=== PATIENT | male | born 1930 | race Caucasian/White ===

== ENCOUNTER 2017-09-15 03:57 | Emergency (ER) | payer MEDICARE, OTHER ==
[~2017-09-15] VITALS: Ht 177.8 cm; Wt 84.5 kg
[~2017-09-15 03:57] MED LIST: ALPR0.25 PO; AMLO5 PO; ASPI325T PO; ATOR40TA49 PO; CARB25TA PO; ENOX30P SQ; FISH1000 PO; LEVO0.5S15 EACH EYE; MIRA33502 PO; OCUVTAB4 PO; OXYC1SOL5 PO; PACE200T4 PO; POTA-243 PO; TEMA15CA PO; VITA500S3 PO; Z.0.COMMODE-3:1; Z.0.WALKERFRONT
[2017-09-15 03:59] VITALS: BP 211/102; PULSE 71; RESP 16; TEMP 98; O2SAT 97
[2017-09-15 04:11] VITALS: RESP 15; O2SAT 94
[2017-09-15] MEDS ORDERED: SODIUM CHLORIDE 0.9% FLUSH 10 ML FLUSH IV FLUSH PRN (04:15)
[2017-09-15] MEDS ORDERED: DIATRIZOATE MEGLUM/DIATRIZOATE SOD 9 ML CUP ONE (04:24)
--- NOTE | 2017-09-15 04:25 | PD ---
HPI Chief Complaint: Abdominal Pain Time Seen by Provider: 04:04 Travel History International Travel<30 days: No Contact w/Intl Traveler<30days: No Traveled to known affect area: No History of Present Illness HPI This is a 87-year-old male with history of Parkinson's disease, hypertension, presents here today with complaints of left lower abdominal pain. Patient reports started earlier today. He reports it initially went away however it is come back. He denies any fevers, chills. He reports mild nausea but no vomiting. There is no reported diarrhea or constipation. There is no reported urinary symptoms. PFSH Past Medical History Autoimmune Disease: No Cardiac Catheterization: Yes Cardiovascular Problems: Yes (PACEMAKER) High Cholesterol: Yes Chemotherapy: No Chest Pain: Yes Congestive Heart Failure: Yes Coronary Artery Disease: Yes Diminished Hearing: No Genitourinary: No Hypertension: Yes Immune Disorder: No Implanted Vascular Access Dvce: Yes Musculoskeletal: Yes Neurologic: No Psychiatric: No Reproductive: No Respiratory: No Immunizations Current: Yes Radiation Therapy: Yes Past Surgical History Abdominal Surgery: No AICD: Yes (pacemaker/defib) Cardiac Surgery: Yes (BYPASS X4 IN 1993, VALVE REPLACEMENT , STENTS X6) Cholecystectomy: Yes (ON ZOCOR) Coronary Artery Bypass Graft: Yes (CABG X4 IN 1993- DECEMBER) Coronary Stent: Yes (X 4) Pacemaker: Yes (JUL 08 2006) Valve Replacement: Yes (AVR IN JUL 01 2006) Other Surgery: Yes Social History Alcohol Use: Yes (2 GLASSES A WEEK) Tobacco Use: No Substance Use: No Allergies-Medications (Allergen,Severity, Reaction): Coded Allergies: naproxen (Unverified Allergy, Severe, "face,lips and hands swell", 01/08/17 ) MRI PRECAUTION (Verified Adverse Reaction, Unknown, PACEMAKER, 10/29/15) PACEMAKER PRESENT 10/29/15 JLA Reported Meds & Prescriptions Reported Meds & Active Scripts Active Reported Potassium Chloride ER (Potassium Chloride) 10 Meq Tab 30 Meq PO DAILY Potassium Chloride ER (Potassium Chloride) 10 Meq Tab 40 Meq PO HS Erythromycin Opth Oint 5 Mg/Gm Oint 1 Applic EACH EYE HS Doxycycline 40 Mg Cap 40 Mg PO DAILY Amlodipine (Amlodipine Besylate) 2.5 Mg Tab 2.5 Mg PO DAILY Prednisone 20 Mg Tab 20 Mg PO DIRECTED Take 60 MG daily x 4 days, then 40 MG x 4 days, then 20 MG daily x 4 days. Alprazolam 0.25 Mg Tab 0.25 Mg PO BID PRN Furosemide 40 Mg Tab 40 Mg PO DAILY Review of Systems Except as stated in HPI: all other systems reviewed are Neg General / Constitutional: No: Fever, Chills HENT: No: Headaches, Lightheadedness Cardiovascular: No: Chest Pain or Discomfort, Palpitations Respiratory: No: Cough, Shortness of Breath Gastrointestinal: Positive: Nausea, Abdominal Pain (Left lower and infraumbilical), No: Vomiting, Diarrhea, Constipation Genitourinary: No: Frequency, Dysuria Musculoskeletal: No: Weakness, Pain Neurologic: No: Weakness, Dizziness, Headache Physical Exam Narrative GENERAL: Well-nourished, well-developed patient, in no acute respiratory distress. SKIN: Focused skin assessment warm/dry. HEAD: Normocephalic/atraumatic. EYES: No scleral icterus. No injection or drainage. NECK: Supple, trachea midline. No JVD or lymphadenopathy. CARDIOVASCULAR: Regular rate and rhythm without murmurs, gallops, or rubs. RESPIRATORY: Breath sounds equal bilaterally. No accessory muscle use. GASTROINTESTINAL: Abdomen soft, nondistended. Patient had tenderness to palpation in his left lower abdominal area. No rebound or guarding. MUSCULOSKELETAL: No cyanosis, or edema. NEUROLOGICAL: Awake and alert. Cranial nerves II through XII intact. Motor grossly within normal limits. Five out of 5 muscle strength in all muscle groups. Normal speech. Data Data Last Documented VS Vital Signs Date Time Temp Pulse Resp B/P (MAP) Pulse Ox O2 Delivery O2 Flow Rate FiO2 09/15/17 06:43 73 20 187/92 (123) 93 Room Air 09/15/17 03:59 98.0 Orders Orders Complete Blood Count With Diff (09/15/17 04:04) Lipase (09/15/17 04:04) Urinalysis - C+S If Indicated (09/15/17 04:04) Ct Abd/Pel W Iv Contrast(Rout) (09/15/17 04:04) Iv Access Insert/Monitor (09/15/17 04:04) Ecg Monitoring (09/15/17 04:04) Oximetry (09/15/17 04:04) Sodium Chloride 0.9% Flush (Ns Flush) (09/15/17 04:15) Oral Contrast - Adult (09/15/17 04:07) Diatrizoate Liq ([place] Liq) (09/15/17 04:24) Comprehensive Metabolic Panel (09/15/17 04:57) Lorazepam Inj (Ativan Inj) (09/15/17 05:45) Iohexol 350 Inj (Omnipaque 350 Inj) (09/15/17 06:21) Labs Laboratory Tests Test 09/15/17 04:30 White Blood Count 12.7 TH/MM3 Red Blood Count 4.16 MIL/MM3 Hemoglobin 12.8 GM/DL Hematocrit 38.3 % Mean Corpuscular Volume 92.2 FL Mean Corpuscular Hemoglobin 30.9 PG Mean Corpuscular Hemoglobin Concent 33.5 % Red Cell Distribution Width 14.9 % Platelet Count 189 TH/MM3 Mean Platelet Volume 8.9 FL Neutrophils (%) (Auto) 70.1 % Lymphocytes (%) (Auto) 19.0 % Monocytes (%) (Auto) 8.9 % Eosinophils (%) (Auto) 1.3 % Basophils (%) (Auto) 0.7 % Neutrophils # (Auto) 8.9 TH/MM3 Lymphocytes # (Auto) 2.4 TH/MM3 Monocytes # (Auto) 1.1 TH/MM3 Eosinophils # (Auto) 0.2 TH/MM3 Basophils # (Auto) 0.1 TH/MM3 CBC Comment AUTO DIFF Differential Total Cells Counted 100 Neutrophils % (Manual) 70 % Lymphocytes % 17 % Monocytes % 8 % Eosinophils % 3 % Basophils % 2 % Neutrophils # (Manual) 8.9 TH/MM3 Differential Comment FINAL DIFF MANUAL Platelet Estimate NORMAL Platelet Morphology Comment NORMAL Red Cell Morphology Comment NORMAL Urine Color LIGHT-YELLOW Urine Turbidity CLEAR Urine pH 6.5 Urine Specific [place] 1.011 Urine Protein 30 mg/dL Urine Glucose (UA) NEG mg/dL Urine Ketones NEG mg/dL Urine Occult Blood NEG Urine Nitrite NEG Urine Bilirubin NEG Urine Urobilinogen LESS THAN 2.0 MG/DL Urine Leukocyte Esterase NEG Urine RBC 2 /hpf Urine WBC LESS THAN 1 /hpf Urine Hyaline Casts 2 /lpf Microscopic Urinalysis Comment CULT NOT INDICATED Blood Urea Nitrogen 26 MG/DL Creatinine 1.38 MG/DL Random Glucose 98 MG/DL Total Protein 7.6 GM/DL Albumin 3.6 GM/DL Calcium Level 8.9 MG/DL Alkaline Phosphatase 83 U/L Aspartate Amino Transf (AST/SGOT) 41 U/L Alanine Aminotransferase (ALT/SGPT) 15 U/L Total Bilirubin 0.7 MG/DL Sodium Level 142 MEQ/L Potassium Level 5.1 MEQ/L Chloride Level 106 MEQ/L Carbon Dioxide Level 27.8 MEQ/L Anion Gap 8 MEQ/L Estimat Glomerular Filtration Rate 49 ML/MIN Lipase 49 U/L MDM Medical Decision Making Medical Screen Exam Complete: Yes Emergency Medical Condition: Yes Differential Diagnosis Diverticulitis versus appendicitis versus gastroenteritis versus cystitis Narrative Course 87-year-old presents today with complaints of abdominal discomfort. The patient has a soft non-surgical abdomen on exam. There is no reported fevers, chills. White blood cell count was slightly elevated at 12. CT scan shows a large left inguinal hernia. On examination. This hernia is reducible. He will be instructed to purchase a truss and wear for comfort. He is instructed to return if he develops any worsening or increased pain, fevers chills, nausea vomiting, inability to have bowel movement. He will follow-up with his primary care doctor and told to call on Saturday. Diagnosis Primary Impression: Abdominal pain Additional Impressions: Reducible left inguinal hernia Renal insufficiency History of Parkinson's disease Additional Instructions: Purchase a truss for comfort. Return if increased pain, fevers chills, nausea vomiting, inability to have bowel movement, or any other reason that concerns you. Follow-up with primary care physician. Disposition: 01 DISCHARGE HOME Condition: Stable Oseas Brady MD Sep 15, 2017 04:24
[2017-09-15 04:40] LABS: AUTOMATED NEUTROPHIL # 8.9 TH/MM3 (1.8-7.7); BASOPHIL # 0.1 TH/MM3 (0-0.2); BASOPHIL % 0.7 % (0.0-2.0); BILIRUBIN, URINE NEG (NEG); BLOOD, URINE NEG (NEG); EOSINOPHIL # 0.2 TH/MM3 (0-0.4); EOSINOPHIL % 1.3 % (0.0-4.0); GLUCOSE,URINE NEG (NEG); HEMATOCRIT 38.3 % (39.0-51.0); HEMOGLOBIN 12.8 GM/DL (13.0-17.0); HYALINE CAST, URINE 2 /lpf (RARE); KETONE, URINE NEG (NEG); LYMPHOCYTE # 2.4 TH/MM3 (1.0-4.8); MEAN CELL VOLUME 92.2 FL (80.0-100.0); MEAN CORPUSCULAR HEMOGLOBIN 30.9 PG (27.0-34.0); MEAN CORPUSCULAR HGB CONC 33.5 % (32.0-36.0); MEAN PLATELET VOLUME 8.9 FL (7.0-11.0); MONO % 8.9 % (0.0-8.0); MONOCYTE # 1.1 TH/MM3 (0-0.9); NEUT % 70.1 % (16.0-70.0); NITRITE,URINE NEG (NEG); PH, URINE 6.5 (5.0-8.5); PLATELET COUNT 189 TH/MM3 (150-450); RED BLOOD COUNT 4.16 MIL/MM3 (4.50-5.90); RED CELL DISTRIBUTION WIDTH 14.9 % (11.6-17.2); URINE COLOR LIGHT-YELLOW (YELLW/STRAW); URINE LEUKOCYTE ESTERASE NEG (NEG); WHITE BLOOD COUNT 12.7 TH/MM3 (4.0-11.0)
[2017-09-15 05:36] LABS: BASOPHILS 2 % (0-2); LYMPHOCYTES 17 % (9-44); MONOCYTES 8 % (0-8); NEUTROPHIL # MANUAL DIFF 8.9 TH/MM3 (1.8-7.7); POLYS (SEG NEUTROPHILS) 70 % (16-70)
[2017-09-15 05:42] LABS: ALT (GPT) 15 U/L (12-78)
[2017-09-15 05:44] LABS: ALKALINE PHOSPHATASE 83 U/L (45-117); TOTAL BILIRUBIN ADULT 0.7 MG/DL (0.2-1.0); TOTAL PROTEIN 7.6 GM/DL (6.4-8.2)
[2017-09-15] MEDS ORDERED: LORazepam 2 MG/ML VIAL IV PUSH ONE (05:45)
[2017-09-15 05:56] LABS: ALBUMIN 3.6 GM/DL (3.4-5.0); AST (GOT) 41 U/L (15-37); BICARBONATE 27.8 MEQ/L (21.0-32.0); BLOOD UREA NITROGEN 26 MG/DL (7-18); CALCIUM 8.9 MG/DL (8.5-10.1); CHLORIDE 106 MEQ/L (98-107); CREATININE 1.38 MG/DL (0.60-1.30); GLOMERULAR FILTRATION RATE 49 ML/MIN (>89); GLUCOSE,RANDOM 98 MG/DL (74-106); SODIUM (NA) 142 MEQ/L (136-145)
[2017-09-15 06:14] VITALS: BP 193/97; PULSE 70; RESP 17; O2SAT 93
[2017-09-15] MEDS ORDERED: IOHEXOL 350 MG/ML 10 ML VIAL (for RAD DIAG) IVCONTRAST ONE (06:21)
--- NOTE | 2017-09-15 06:38 | RADRPT ---
EXAM DATE/TIME: 09/15/2017 06:21 [facility] COMPARISON: No previous studies available for comparison. INDICATIONS : Abdomen pain. IV CONTRAST: 95 cc Omnipaque 350 (iohexol) IV ORAL CONTRAST: Prescribed oral contrast ingested. RADIATION DOSE: 20.00 CTDIvol (mGy) MEDICAL HISTORY : Cardiovascular disease. Hypertension. SURGICAL HISTORY : CABG Coronary artery stent.Pacemaker.GB ENCOUNTER: Initial ACUITY: 1 day PAIN SCALE: 5/10 LOCATION: Bilateral abdomen TECHNIQUE: Volumetric scanning of the abdomen and pelvis was performed. Using automated exposure control and ad justment of the mA and/or kV according to patient size, radiation dose was kept as low as reasonably achievable to obtain optimal diagnostic quality images. DICOM format image data is available electro nically for review and comparison. FINDINGS: LOWER LUNGS: Significant cardiomegaly without pericardial effusion. Calcified granuloma within the right base. LIVER: 2 tiny hepatic cysts. No solid lesion. Portal vein is patent. Small calcified gallstones layering wit hin an otherwise normal-appearing gallbladder. SPLEEN: Normal size without lesion. PANCREAS: Within normal limits. KIDNEYS: Normal in size and shape. There is no mass, stone or hydronephrosis. ADRENAL GLANDS: Within normal limits. VASCULAR: Diffuse calcified plaque throughout the abdominal aorta and inflow vessels. No aneurysmal change. BOWEL/MESENTERY: The stomach, small bowel, and colon demonstrate no acute abnormality. There is no free intraperitone al air or fluid. ABDOMINAL WALL: Within normal limits. RETROPERITONEUM: There is no lymphadenopathy. BLADDER: No wall thickening or mass. REPRODUCTIVE: Within normal limits. INGUINAL: There is a large right inguinal hernia. This contains fat and several loops of small bowel. No CT jackie dence to suggest incarceration or obstruction. MUSCULOSKELETAL: A left hip prosthesis. A degenerative spine. CONCLUSION: 1. Large right inguinal hernia containing small bowel and fat. No CT evidence to suggest obstruction or incarceration. 2. Cholelithiasis without CT evidence to suggest acute cholecystitis. 3. Significant cardiomegaly. Mansoor Almonte Jr., MD on September 15, 2017 at 6:33 Board Certified Radiologist. This report was verified electronically.
[2017-09-15 06:43] VITALS: BP 187/92; PULSE 73; RESP 20; O2SAT 93
[2017-09-15] MEDS ORDERED: ERYTOIN10 EACH EYE (06:49)
[2017-09-15] MEDS ORDERED: FURO40TA PO (06:49)
[2017-09-15] MEDS ORDERED: PRED20 PO (06:49)
[2017-09-15] MEDS ORDERED: POTA-163 PO (06:49)
[2017-09-15] MEDS ORDERED: ALPR0.25 PO (06:49)
[2017-09-15] MEDS ORDERED: DOXY1CAP74 PO (06:49)
[2017-09-15] MEDS ORDERED: AMLO2.5T PO (06:49)
[2017-09-15] MEDS ORDERED: POTA10TA2 PO ×2 (06:49→06:50)
== END 2017-09-15 07:07 | disposition home or self-care (01) ==
LOC: NEPE 03:57
DX: R10.32 Left lower quadrant pain (principal); K40.90 Unilateral inguinal hernia, without obstruction or gangrene, not specified as recurrent; N28.9 Disorder of kidney and ureter, unspecified; G20 Parkinson's disease; I11.0 Hypertensive heart disease with heart failure
CPT/HCPCS: 74177; 80053; 81001; 83690; 85007; 85027; 96374; 99285; J2060; Q9963; Q9967

== ENCOUNTER 2017-09-30 13:57 | Inpatient (IN) | payer OTHER, MEDICARE ==
[~2017-09-30] VITALS: Ht 177.8 cm; Wt 89.5 kg
[~2017-09-30 13:57] MED LIST changes: +AMLO2.5T PO; -AMLO5 PO; -ASPI325T PO; -ATOR40TA49 PO; -CARB25TA PO; +DOXY1CAP74 PO; -ENOX30P SQ; +ERYTOIN10 EACH EYE; -FISH1000 PO; +FURO40TA PO; -LEVO0.5S15 EACH EYE; -MIRA33502 PO; -OCUVTAB4 PO; -OXYC1SOL5 PO; -PACE200T4 PO; -POTA-243 PO; +POTA10TA2 PO; +PRED20 PO; -TEMA15CA PO; -VITA500S3 PO; -Z.0.COMMODE-3:1; -Z.0.WALKERFRONT
[2017-09-30 14:30] VITALS: BP 167/82; PULSE 70; RESP 18; TEMP 98.1; O2SAT 97
[2017-09-30] MEDS ORDERED: ACETAMINOPHEN/HYDROcodone 325 MG/5 MG TAB PO ONE (16:00)
[2017-09-30] MEDS ORDERED: LORazepam 2 MG TAB PO ONE (16:00)
--- NOTE | 2017-09-30 16:22 | PD ---
HPI . Back pain Chief Complaint: Back/ Neck Pain or Injury Time Seen by Provider: 15:43 Travel History International Travel<30 days: No Contact w/Intl Traveler<30days: No Traveled to known affect area: No History of Present Illness HPI Patient presents along with several family members with the chief complaint of low back pain. Onset was 2 weeks ago. He states that he was at a restaurant and turn to speak with someone and inadvertently struck his left lower rib cage on a counter. This caused a "almost fall to the ground." Since then, he has had low back pain. He has been seen by his primary care provider for the back pain has been referred to orthopedics. He cannot get in to see an orthopedist for another week or 2. His pain is not controlled by Tylenol and Advil at home. He subsequently presents to us for further evaluation and treatment. Pain is rated 10/10 and is exacerbated by movement. PFSH Past Medical History Autoimmune Disease: No Cardiac Catheterization: Yes Cardiovascular Problems: Yes (PACEMAKER) High Cholesterol: Yes Chemotherapy: No Chest Pain: Yes Congestive Heart Failure: Yes Coronary Artery Disease: Yes Diminished Hearing: No Genitourinary: No Hypertension: Yes Immune Disorder: No Implanted Vascular Access Dvce: No Musculoskeletal: Yes Neurologic: No Psychiatric: No Reproductive: No Respiratory: No Immunizations Current: Yes Radiation Therapy: Yes Influenza Vaccination: Yes Past Surgical History Abdominal Surgery: No AICD: Yes (pacemaker/defib) Cardiac Surgery: Yes (BYPASS X4 IN 1993, VALVE REPLACEMENT , STENTS X6) Cholecystectomy: Yes (ON ZOCOR) Coronary Artery Bypass Graft: Yes (CABG X4 IN 1993- DECEMBER) Coronary Stent: Yes (X 4) Pacemaker: Yes (JUL 08 2006) Valve Replacement: Yes (AVR IN JUL 01 2006) Other Surgery: Yes Social History Alcohol Use: Yes (rarely) Tobacco Use: No Substance Use: No Allergies-Medications (Allergen,Severity, Reaction): Coded Allergies: naproxen (Unverified Allergy, Severe, "face,lips and hands swell", 09/30/17) MRI PRECAUTION (Verified Adverse Reaction, Unknown, PACEMAKER, 09/30/17) PACEMAKER PRESENT 10/29/15 JLA Reported Meds & Prescriptions Reported Meds & Active Scripts Active Reported Potassium Chloride ER (Potassium Chloride) 10 Meq Tab 30 Meq PO DAILY Potassium Chloride ER (Potassium Chloride) 10 Meq Tab 40 Meq PO HS Erythromycin Opth Oint 5 Mg/Gm Oint 1 Applic EACH EYE HS Doxycycline 40 Mg Cap 40 Mg PO DAILY Amlodipine (Amlodipine Besylate) 2.5 Mg Tab 2.5 Mg PO DAILY Prednisone 20 Mg Tab 20 Mg PO DIRECTED Take 60 MG daily x 4 days, then 40 MG x 4 days, then 20 MG daily x 4 days. Alprazolam 0.25 Mg Tab 0.25 Mg PO BID PRN Furosemide 40 Mg Tab 40 Mg PO DAILY Review of Systems Except as stated in HPI: all other systems reviewed are Neg Psychiatric: Positive: Anxiety Physical Exam Narrative GENERAL: Awake and alert and in no acute distress. SKIN: Warm and dry. His skin is very thin. It does look intact from what I can see. HEAD: Normocephalic/atraumatic. EYES: Pupils are equal. Extraocular movements are intact. NECK: Normal range of motion. CARDIOVASCULAR: Regular rate and rhythm. RESPIRATORY: Nonlabored respirations. MUSCULOSKELETAL: Tenderness to palpation in the mid lumbar spine and over the left posterior sacroiliac crest. NEUROLOGICAL: Nonfocal. PSYCHIATRIC: Appropriate mood and affect. Data Data Last Documented VS Vital Signs Date Time Temp Pulse Resp B/P (MAP) Pulse Ox O2 Delivery O2 Flow Rate FiO2 09/30/17 14:30 98.1 70 18 167/82 (110) [address] Lumb Spine W/O Contrast (09/30/17 15:52) Acetamin-Hydrocod 325-5 Mg ([place] 5-325 (09/30/17 16:00) Lorazepam (Ativan) (09/30/17 16:00) Complete Blood Count With Diff (09/30/17 18:10) Basic Metabolic Panel (Bmp) (09/30/17 18:10) Prothrombin Time / Inr (Pt) (09/30/17 18:10) Act Partial Throm Time (Ptt) (09/30/17 18:10) Type And Screen (09/30/17 18:10) Precautions (09/30/17 18:10) Activity Bed Rest (09/30/17 18:10) Consult Neurosurgery (09/30/17 ) Morphine Inj (Morphine Inj) (09/30/17 18:15) MDM Medical Decision Making Medical Screen Exam Complete: Yes Emergency Medical Condition: Yes Differential Diagnosis Differential diagnosis includes but is not limited to muscular low back pain, DDD, spinal stenosis, epidural abscess, sciatica, kidney infection or stone. Narrative Course This patient presents complaining with low back pain which has been bothering him for 2 weeks since he nearly fell. He has seen his primary care doctor who referred him to orthopedics. He has not been able to get into see an orthopedic surgeon. His pain is not controlled at home with Tylenol and ibuprofen. I have ordered a CT of his lumbar spine. He will be given a [place] and and Ativan here. Care was turned over to Dr Kaufman at [address] Diagnosis Primary Impression: Back pain Qualified Codes: M54.5 - Low back pain Condition: Stable Malaika Faulkner MD September 30, 2017 16:22
--- NOTE | 2017-09-30 17:41 | RADRPT ---
EXAM DATE/TIME: 09/30/2017 16:34 [facility] COMPARISON: No previous studies available for comparison. INDICATIONS : Low back pain. RADIATION DOSE: 43.84 CTDIvol (mGy) MEDICAL HISTORY : Cardiovascular disease. SURGICAL HISTORY : Pacemaker. Defibrillator. ENCOUNTER: Initial ACUITY: 1 week PAIN SCALE: 10/10 LOCATION: lumbar TECHNIQUE: Volumetric scanning of the lumbar spine was performed. Multiplanar reconstructions in the sagittal, coronal and oblique axial planes were performed. Using automated exposure control and adjustment of the mA and/or kV according to patient size, radiation dose was kept as low as reasonably achievable t o obtain optimal diagnostic quality images. DICOM format image data is available electronically for review and comparison. FINDINGS: VERTEBRAE: There is acute appearing fracture at the L2 vertebral body. There is a horizontal fracture involving the superior aspect of the L2 vertebral body. This involves the anterior and posterior aspect of the vertebral body. There is minimal retropulsion of the posterior superior aspect of the L1 vertebral carola dy straightening the anterior thecal sac margin without significant stenosis. The fracture extends th rough the superior endplate. The pedicles and posterior elements are intact. No other fracture is see n. There is hypertrophic change at the interspinous regions at the L2-L5 levels. ALIGNMENT: No evidence of subluxation. Arterial calcifications are seen. T12-L1: The thecal sac has a normal diameter. No evidence of disc bulge or protrusion. The neural foramina are patent bilaterally. L1-L2: Again noted is the fracturing of the superior aspect of the L2 vertebral body would be minimal retrop ulsion. There is straightening the anterior margin of the thecal sac without significant stenosis. N o evidence of disc bulge or protrusion. The neural foramina are patent bilaterally. L2-L3: The thecal sac has a normal diameter. There is minimal diffuse disc bulge. Significant stenosis is n ot seen. The neural foramina are patent bilaterally. L3-L4: There is mild diffuse disc bulge. There is moderate facet and ligamentum flavum hypertrophy resulting in severe stenosis. The neural foramina are patent bilaterally. L4-L5: There is mild diffuse disc bulge. There is severe facet and ligamentum flavum hypertrophy resulting i n moderate stenosis. The facet hypertrophy is worse on the right. There is narrowing of the right grant ral foramina. The left neural foramina is patent. L5-S1: The disc demonstrates decreased height. There is calcification seen throughout the disc. There appear s be minimal central disc protrusion without significant stenosis. There is mild facet hypertrophy. T he neural foramina are patent bilaterally. CONCLUSION: 1. Acute fracture in the superior aspect of the L2 vertebral body involving the entire superior aspec t of the L2 vertebral body with slight retropulsion of the posterior superior aspect of the L2 verteb ral body causing minimal impress on the thecal sac. 2. Degenerative change as described above. There is severe stenosis at the L4-L5 level and moderate s tenosis at the L3-L4 level. Toribio Callaway MD on September 30, 2017 at 17:26 Board Certified Radiologist. This report was verified electronically.
--- NOTE | 2017-09-30 17:50 | PD ---
Physical Exam Narrative Received sign out from previous team to follow up CT lumbar spine. 87yo M with PMH of CAD, HTN with lower back pain for 2 weeks. He apparently twisted his body when his foot was stuck and he fell. Pt went to PMD and was found to have left rib fracture but they did not evaluate his back. Pt has been walking with increasing lower back pain and has been falling more as well. CT LS showed acute fracture in superior aspect of the L2 vertebral body involving the entire superior aspect of the L2 vertebral body with slight retropulsion of the posterior superior aspect of the L2 vertebral body causing minimal impress on the thecal sac. Pt given ativan 2mg PO and hydrocodone by previous team and is still in a lot of pain. Pt has normal sensation and muscle strength in bilateral lower extremities. Discussed with Dr. Shafer who recommends bedrest with spine precaution and consult to neurosurgery since he will need surgery. Labs ordered and pt to be admitted to medicine. Will give morphine for pain. Labs reviewed, no leukocytosis. H/H 12.8/38.2. BUN mildly elevated at 25. Creatinine normal. Discussed with Dr. Castillo and accepted to his service. Data Data Last Documented VS Vital Signs Date Time Temp Pulse Resp B/P (MAP) Pulse Ox O2 Delivery O2 Flow Rate FiO2 09/30/17 19:15 70 16 161/88 (112) 95 Room Air 09/30/17 14:[address] Lumb Spine W/O Contrast (09/30/17 15:52) Acetamin-Hydrocod 325-5 Mg ([place] 5-325 (09/30/17 16:00) Lorazepam (Ativan) (09/30/17 16:00) Complete Blood Count With Diff (09/30/17 18:10) Basic Metabolic Panel (Bmp) (09/30/17 18:10) Prothrombin Time / Inr (Pt) (09/30/17 18:10) Act Partial Throm Time (Ptt) (09/30/17 18:10) Type And Screen (09/30/17 18:10) Precautions (09/30/17 18:10) Activity Bed Rest (09/30/17 18:10) Consult Neurosurgery (09/30/17 ) Morphine Inj (Morphine Inj) (09/30/17 18:15) (Hub Use Only)Inp Phy Cons/Ref (09/30/17 ) ^ Other Nursing Orders (09/30/17 19:58) Admit Order (Ed Use Only) (09/30/17 20:00) Admit To Inpatient (09/30/17 ) Vital Signs (Adult) Q4H (09/30/17 19:59) Neuro Checks Q4H (09/30/17 19:59) Activity Oob With Assistance (09/30/17 19:59) Intake + Output ISA.QSHIFT (09/30/17 19:59) Diet Npo (10/01/17 Breakfast) D5-1/2 Ns + Kcl 20 Meq Inj (D5-1/2 Ns + (09/30/17 19:59) Sodium Chloride 0.9% Flush (Ns Flush) (09/30/17 20:00) Sodium Chloride 0.9% Flush (Ns Flush) (09/30/17 21:00) Ondansetron Inj (Zofran Inj) (09/30/17 20:00) Comprehensive Metabolic Panel (10/01/17 06:00) Complete Blood Count With Diff (10/01/17 06:00) Case Management Consult (09/30/17 19:59) Scd Bilateral/Knee High ISA.BID (09/30/17 19:59) Naloxone Inj (Narcan Inj) (09/30/17 20:00) Magnesium Hydroxide Liq (Milk Of Magnesi (09/30/17 20:00) Sennosides (Senokot) (09/30/17 20:00) Bisacodyl Supp (Dulcolax Supp) (09/30/17 20:00) Lactulose Liq (Lactulose Liq) (09/30/17 20:00) Inpatient Certification (09/30/17 ) Labs Laboratory Tests Test 09/30/17 18:37 White Blood Count 10.3 TH/MM3 Red Blood Count 4.07 MIL/MM3 Hemoglobin 12.8 GM/DL Hematocrit 38.2 % Mean Corpuscular Volume 93.7 FL Mean Corpuscular Hemoglobin 31.4 PG Mean Corpuscular Hemoglobin Concent 33.5 % Red Cell Distribution Width 16.0 % Platelet Count 177 TH/MM3 Mean Platelet Volume 8.1 FL Neutrophils (%) (Auto) 59.1 % Lymphocytes (%) (Auto) 25.2 % Monocytes (%) (Auto) 10.1 % Eosinophils (%) (Auto) 4.9 % Basophils (%) (Auto) 0.7 % Neutrophils # (Auto) 6.1 TH/MM3 Lymphocytes # (Auto) 2.6 TH/MM3 Monocytes # (Auto) 1.0 TH/MM3 Eosinophils # (Auto) 0.5 TH/MM3 Basophils # (Auto) 0.1 TH/MM3 CBC Comment DIFF FINAL Differential Comment Prothrombin Time 10.9 SEC Prothromb Time International Ratio 1.1 RATIO Activated Partial Thromboplast Time 24.5 SEC Blood Urea Nitrogen 25 MG/DL Creatinine 1.27 MG/DL Random Glucose 85 MG/DL Calcium Level 8.5 MG/DL Sodium Level 146 MEQ/L Potassium Level 3.7 MEQ/L Chloride Level 110 MEQ/L Carbon Dioxide Level 27.1 MEQ/L Anion Gap 9 MEQ/L Estimat Glomerular Filtration Rate 54 ML/MIN MDM Supervised Visit with ANA: No Diagnosis Primary Impression: L2 vertebral fracture Qualified Codes: S32.029A - Unspecified fracture of second lumbar vertebra, initial encounter for closed fracture Admitting Information Admitting Physician Requests: Sherrie Wolf DO September 30, 2017 17:50
[2017-09-30] MEDS ORDERED: MORPHINE SULFATE 4 MG/ML INJ IV PUSH ONE (18:15)
[2017-09-30 18:25] VITALS: BP 219/104; PULSE 70; RESP 15; O2SAT 96
[2017-09-30 18:55] LABS: HEMATOCRIT 38.2 % (39.0-51.0); HEMOGLOBIN 12.8 GM/DL (13.0-17.0); RED BLOOD COUNT 4.07 MIL/MM3 (4.50-5.90); WHITE BLOOD COUNT 10.3 TH/MM3 (4.0-11.0)
[2017-09-30 18:56] LABS: AUTOMATED NEUTROPHIL # 6.1 TH/MM3 (1.8-7.7); BASOPHIL # 0.1 TH/MM3 (0-0.2); BASOPHIL % 0.7 % (0.0-2.0); EOSINOPHIL # 0.5 TH/MM3 (0-0.4); EOSINOPHIL % 4.9 % (0.0-4.0); LYMPH % 25.2 % (9.0-44.0); LYMPHOCYTE # 2.6 TH/MM3 (1.0-4.8); MEAN CELL VOLUME 93.7 FL (80.0-100.0); MEAN CORPUSCULAR HEMOGLOBIN 31.4 PG (27.0-34.0); MEAN CORPUSCULAR HGB CONC 33.5 % (32.0-36.0); MEAN PLATELET VOLUME 8.1 FL (7.0-11.0); MONO % 10.1 % (0.0-8.0); NEUT % 59.1 % (16.0-70.0); PLATELET COUNT 177 TH/MM3 (150-450)
[2017-09-30 19:02] LABS: INTERNATIONAL NORMALIZED RATIO 1.1 RATIO; PROTHROMBIN TIME - PATIENT 10.9 SEC (9.8-11.6)
[2017-09-30 19:15] VITALS: BP 161/88; PULSE 70; RESP 16; O2SAT 95
[2017-09-30 19:37] LABS: BICARBONATE 27.1 MEQ/L (21.0-32.0); CALCIUM 8.5 MG/DL (8.5-10.1); CREATININE 1.27 MG/DL (0.60-1.30)
[2017-09-30] MEDS ORDERED: SENNOSIDES 8.6 MG TAB PO PRN (20:00)
[2017-09-30] MEDS ORDERED: MAGNESIUM HYDROXIDE SUSP 30 ML CUP PO PRN (20:00)
[2017-09-30] MEDS ORDERED: BISACODYL 10 MG SUPP RECTAL PRN (20:00)
[2017-09-30] MEDS ORDERED: LACTULOSE SYRUP 20 GM/30 ML CUP PO PRN (20:00)
[2017-09-30] MEDS ORDERED: ONDANSETRON HCL 4 MG/2 ML VIAL IVP PRN (20:00)
[2017-09-30] MEDS ORDERED: NALOXONE HCL 0.4 MG/ML AMP IV PUSH PRN (20:00)
--- NOTE | 2017-09-30 20:16 | PD.CONS ---
[facility] Service neurosurgery Consult Requested By Neelam BOND Reason for Consult L2 unstable fracture Primary Care Physician Jessica Ramos MD History of Present Illness This is a 87 y/o male with a history of Hypertension, Hyperlipidemia, CAD, CHF, Parkinson's disease, History of prostate cancerstatus post prostatectomy presented to the ED with complaints of back pain for 2 weeks. He states 2 weeks ago he misstepped and twisted his back almost falling. He states the pain has been constant, sharp stabbing, to his lower back. No head injury at that time. No loss of consciousness. No tongue biting. No incontinence of stool or urine. He rates his pain as 10/10, for the last 2 weeks, denies any radiation but complains of left sided weakness, affecting his entire leg,, worse with movement and better with rest. Denies any chest pain, sob, fever or chills. CT show an unstable L2 fracture. Neurosurgical consultation was requested Review of Systems Constitutional: DENIES: Diaphoretic episodes, Fatigue, Fever, Weight gain, Weight loss, Chills, Dizziness, Change in appetite, Night Sweats Endocrine: DENIES: Heat/cold intolerance, Polydipsia, Polyuria, Polyphagia Eyes: DENIES: Blurred vision, Diplopia, Eye inflammation, Eye pain, Vision loss , Photosensitivity, Double Vision Ears, nose, mouth, throat: DENIES: Tinnitus, Hearing loss, Vertigo, Nasal discharge, Oral lesions, Throat pain, Hoarseness, Ear Pain, Running Nose, Epistaxis, Sinus Pain, Toothache, Odynophagia Respiratory: DENIES: Apneas, Cough, Snoring, Wheezing, Hemoptysis, Sputum production, Shortness of breath Cardiovascular: DENIES: Chest pain, Palpitations, Syncope, Dyspnea on Exertion , PND, Lower Extremity Edema, Orthopnea, Claudication Gastrointestinal: DENIES: Abdominal pain, Black stools, Bloody stools, Constipation, Diarrhea, Nausea, Vomiting, Difficulty Swallowing, Anorexia Genitourinary: DENIES: Sexual dysfunction, Urinary frequency, Urinary incontinence, Urgency, Hematuria, Dysuria, Nocturia, Penile Discharge, Testicular Pain, Testicular Swelling Musculoskeletal: COMPLAINS OF: Joint pain, Back pain, DENIES: Muscle aches, Stiffness, Joint Swelling, Neck pain Integumentary: DENIES: Abnormal pigmentation, Nail changes, Pruritus, Rash Hematologic/lymphatic: DENIES: Bruising, Lymphadenopathy Immunologic/allergic: DENIES: Eczema, Urticaria Neurologic: COMPLAINS OF: Abnormal gait, Localized weakness, Paresthesias, DENIES: Headache, Seizures, Speech Problems, Tremor, Poor Balance Psychiatric: DENIES: Anxiety, Confusion, Mood changes, Depression, Hallucinations, Agitation, Suicidal Ideation, Homicidal Ideation, Delusions Past Family Social History Allergies: Coded Allergies: naproxen (Unverified Allergy, Severe, "face,lips and hands swell", 09/30/17) MRI PRECAUTION (Verified Adverse Reaction, Unknown, PACEMAKER, 09/30/17) PACEMAKER PRESENT 10/29/15 JLA Past Medical History Hypertension Hyperlipidemia CAD CHF Parkinson's disease History of prostate cancerstatus post prostatectomy Past Surgical History Coronary artery stent placements PPM/AICD CABG Aortic valve replacement Bilateral total knee arthroplasty ORIF of wrist fracture Left hip replacement Reported Medications Carbidopa-Levo 25-100 mg Odt (Carbidopa/Levodopa) 25 Mg-100 Mg Tab.rapdis 1.5 Tab PO TID Vitamin F56-Uodxk Acid (Cobalamine Combinations) 500-400 Mcg Tab 1 Tab PO DAILY Polyethylene Glycol 3350 Powder (Polyethylene Glycol) 17 Gram Pow 17 Gm PO DAILY Temazepam 15 Mg Cap 15 Mg PO HS PRN Aspirin 81 Mg Chew 81 Mg CHEW DAILY Levobunolol Opth Drops (Levobunolol HCl) 0.5% Drops 1-2 Drop EACH EYE DAILY Preservision Areds (Multiple Vitamins W/ Minerals) 1 Tab 1 Tab PO DAILY Eaton-3 Fish Oil/Vitamin (Fish Oil-Cholecalciferol) 1,000-1,000 Mg Cap 1 Cap PO DAILY Atorvastatin (Atorvastatin Calcium) 40 Mg Tab 40 Mg PO HS Lipitor (Atorvastatin Calcium) 40 Mg Tab 40 Mg PO HS Coreg (Carvedilol) 25 Mg Tab 25 Mg PO DAILY Amiodarone (Amiodarone HCl) 200 Mg Tab 200 Mg PO DAILY Potassium Chloride ER (Potassium Chloride) 10 Meq Tab 30 Meq PO DAILY Potassium Chloride ER (Potassium Chloride) 10 Meq Tab 40 Meq PO HS Amlodipine (Amlodipine Besylate) 2.5 Mg Tab 2.5 Mg PO BID Alprazolam 0.25 Mg Tab 0.25 Mg PO BID PRN Furosemide 40 Mg Tab 40 Mg PO DAILY Active Ordered Medications Current Medications Medications (Trade) Dose Ordered Sig/Noe Route Start Time Stop Time Status Last Admin Potassium Chloride/Dextrose/ Sod Cl 1,000 ml @ 100 mls/hr Q10H IV 09/30/17 19:59 09/30/17 20:31 (NS Flush) 2 ml UNSCH PRN IV FLUSH 09/30/17 20:00 (NS Flush) 2 ml BID IV FLUSH 09/30/17 21:00 (Zofran Inj) 4 mg Q6H PRN IVP 09/30/17 20:00 (Narcan Inj) 0.4 mg UNSCH PRN IV PUSH 09/30/17 20:00 (Milk Of Magnesia Liq) 30 ml Q12H PRN PO 09/30/17 20:00 (Senokot) 17.2 mg Q12H PRN PO 09/30/17 20:00 (Dulcolax Supp) 10 mg DAILY PRN RECTAL 09/30/17 20:00 (Lactulose Liq) 30 ml DAILY PRN PO 09/30/17 20:00 (Morphine Inj) 2 mg Q3H PRN IV 09/30/17 23:00 Lactated Ringer's 1,000 ml @ 30 mls/hr Q24H PRN IV 09/30/17 23:00 10/03/17 22:59 Sodium Chloride 500 ml @ 30 mls/hr [id number] PRN IV 09/30/17 23:00 10/03/17 22:59 (Betadine 5% Antisepsis Kit) 1 applic VACUUM KETTLE COOK PRN EACH NARE 09/30/17 23:00 10/03/17 22:59 (Chlorhexidine 2% Cloth) 3 pack VACUUM KETTLE COOK PRN TOPICAL 09/30/17 23:00 10/03/17 22:59 Family History His family history was reviewed. The patient is unsure of family history Social History He denies any tobacco or alcohol use. Physical Exam Vital Signs Vital Signs Date Time Temp Pulse Resp B/P (MAP) Pulse Ox O2 Delivery O2 Flow Rate FiO2 09/30/17 19:15 70 16 161/88 (112) 95 Room Air 09/30/17 19:14 70 16 09/30/17 18:25 70 15 219/104 (142) 96 Room Air 09/30/17 14:30 98.1 70 18 167/82 (110) 97 Physical Exam GENERAL: nourished, well-developed patient, in no apparent distress. SKIN: No rashes, ecchymoses or lesions. Cool and dry. HEAD: Atraumatic. Normocephalic. EYES: Pupils equal round and reactive. Extraocular motions intact. No scleral icterus. No injection or drainage. NECK: Trachea midline. No JVD or lymphadenopathy. CARDIOVASCULAR: Regular rate and rhythm without murmurs, gallops, or rubs. RESPIRATORY: Clear to auscultation. Breath sounds equal bilaterally. No wheezes , rales, or rhonchi. GASTROINTESTINAL: Abdomen soft, non-tender, nondistended. No hepato-splenomegaly , or palpable masses. No guarding. MUSCULOSKELETAL: Extremities without clubbing, cyanosis, or edema. Lumbar tenderness. No calf tenderness. NEUROLOGICAL: Awake and alert. Normal speech. Left lower extremity weaker than right, 4/5 on iliopsoas quadriceps, 4+ out of 5 with giveaway pain in his hamstrings, tibialis anterior and EHL Sensory examination is decreased in both lower extremities Deep tendon reflexes are 1+ in both upper extremities, trace in both lower extremities. Bilateral plantar flexor response. No clonus Cerebellar examination is very limited due to his condition Laboratory Laboratory Tests Test 09/30/17 18:37 White Blood Count 10.3 Red Blood Count 4.07 Hemoglobin 12.8 Hematocrit 38.2 Mean Corpuscular Volume 93.7 Mean Corpuscular Hemoglobin 31.4 Mean Corpuscular Hemoglobin Concent 33.5 Red Cell Distribution Width 16.0 Platelet Count 177 Mean Platelet Volume 8.1 Neutrophils (%) (Auto) 59.1 Lymphocytes (%) (Auto) 25.2 Monocytes (%) (Auto) 10.1 Eosinophils (%) (Auto) 4.9 Basophils (%) (Auto) 0.7 Neutrophils # (Auto) 6.1 Lymphocytes # (Auto) 2.6 Monocytes # (Auto) 1.0 Eosinophils # (Auto) 0.5 Basophils # (Auto) 0.1 CBC Comment DIFF FINAL Differential Comment Prothrombin Time 10.9 Prothromb Time International Ratio 1.1 Activated Partial Thromboplast Time 24.5 Blood Urea Nitrogen 25 Creatinine 1.27 Random Glucose 85 Calcium Level 8.5 Sodium Level 146 Potassium Level 3.7 Chloride Level 110 Carbon Dioxide Level 27.1 Anion Gap 9 Estimat Glomerular Filtration Rate 54 Result Diagram: 09/30/17183609/30/171836 Attending Statement (1) L2 vertebral fracture ICD Code: S32.029A - Unspecified fracture of second lumbar vertebra, initial encounter for closed fracture Status: Acute (2) CHF (congestive heart failure) ICD Code: I50.9 - Heart failure, unspecified Status: Chronic (3) Hyperlipemia ICD Code: E78.5 - Hyperlipidemia, unspecified Status: Chronic (4) Parkinsons disease ICD Code: G20 - Parkinson's disease Status: Chronic (5) Hypertension ICD Code: I10 - Essential (primary) hypertension Status: Chronic I reviewed his radiological studies Lumbar Spine CT 09/30/17 [id number] Signed Impressions: Service Date/Time: Saturday, September 30, 2017 16:34 - CONCLUSION: 1. Acute fracture in the superior aspect of the L2 vertebral body involving the entire superior aspect of the L2 vertebral body with slight retropulsion of the posterior superior aspect of the L2 vertebral body causing minimal impress on the thecal sac. 2. Degenerative change as described above. There is severe stenosis at the L4-L5 level and moderate stenosis at the L3-L4 level. Toribio Callaway MD L2 acute fracture status post trauma vLumbar spine CT shows acute fracture in the superior aspect of the L2 vertebral body involving the entire superior aspect of the L2 vertebral body with slight pressure portion of the posterior aspect of the L2 causing minimal impress on the WILTON sac. Severe stenosis at the L4-L5 level and moderate stenosis at L3-L4. She is unable to undergo an MRI as she has an implanted pacemaker/AICD. This is on a stable fracture. I have discussed with his family the alternatives of treatment, including the possibility of surgery with a combination of a kyphoplasty with open reduction internal fixation of the fracture, instrumented fixation using transpedicular screws rods and the posterolateral fusion.. We have discussed the details including the [id number] details of the surgical procedure, its indications, alternatives, risks, and potential complications. Risks and potential complications include, but are not limited to, infection, blood loss, CSF leak, partial or complete loss of sight in one or both eyes, paresis, paralysis, permanent pain or difficulty swallowing, loss of bowel or bladder function, complications from anesthesia, blood clot, stroke, myocardial infarction, or even . Pain management with IV medications Hypertension, chronic . Resume home medications amlodipine, monitor vitals CHF, chronic, diastolic Last echo 2015 shows an EF of 55-60% -Monitor for fluid overload -Resume home medications Coreg, Lasix Hyperlipidemia, chronic Resume home medications Lipitor Parkinson's disease, chronic Resume home medications levodopa/carbidopa. We will consult neurology as he may need an adjustment in his medications. His Parkinson's appears to be poorly controlled Daily PT and OT Renal. monitor closely urine output, BUN and creatinine Endocrine. Monitor serial Acu checks and SSI as needed in detail ID monitor for signs of infection Continue Protonix for stress ulcer prophylaxis Continue Bolivar hose and SCD's for DVT prophylaxis Caprini VTE Risk Assessment Caprini VTE Risk Assessment: No/Low Risk (score <= 1) Caprini Risk Assessment Model Point Value = 1 Point Value = 2 Point Value = 3 Point Value = 5 Age 41-60 Minor surgery BMI > 25 kg/m2 Swollen legs Varicose veins or History of unexplained or recurrent spontaneous Oral contraceptives or hormone replacement Sepsis (< 1 month) Serious lung disease, including pneumonia (< 1 month) Abnormal pulmonary function Acute myocardial infarction Congestive heart failure (< 1 month) History of inflammatory bowel disease Medical patient at bed rest Age 61-74 Arthroscopic surgery Major open surgery (> 45 min) Laparoscopic surgery (> 45 min) Malignancy Confined to bed (> 72 hours) Immobilizing plaster cast Central venous access Age >= 75 History of VTE Family history of VTE Factor V Leiden Prothrombin [id number] Lupus anticoagulant Anticardiolipin antibodies Elevated serum homocysteine Heparin-induced thrombocytopenia Other congenital or acquired thrombophilia Stroke (< 1 month) Elective arthroplasty Hip, pelvis, or leg fracture Acute spinal cord injury (< 1 month) Prophylaxis Regimen Total Risk Factor Score Risk Level Prophylaxis Regimen 0-1 Low Early ambulation 2 Moderate Order ONE of the following: *Sequential Compression Device (SCD) *Heparin 5000 units SQ BID 3-4 Higher Order ONE of the following medications: *Heparin 5000 units SQ TID *Enoxaparin/Lovenox 40 mg SQ daily (WT < 150 kg, CrCl > 30 mL/min) *Enoxaparin/Lovenox 30 mg SQ daily (WT < 150 kg, CrCl > 10-29 mL/min) *Enoxaparin/Lovenox 30 mg SQ BID (WT < 150 kg, CrCl > 30 mL/min) AND/OR *Sequential Compression Device (SCD) 5 or more Highest Order ONE of the following medications: *Heparin 5000 units SQ TID (Preferred with Epidurals) *Enoxaparin/Lovenox 40 mg SQ daily (WT < 150 kg, CrCl > 30 mL/min) *Enoxaparin/Lovenox 30 mg SQ daily (WT < 150 kg, CrCl > 10-29 mL/min) *Enoxaparin/Lovenox 30 mg SQ BID (WT < 150 kg, CrCl > 30 mL/min) AND *Sequential Compression Device (SCD) Milo Shafer MD September 30, 2017 20:16
[2017-09-30] MEDS ORDERED: ATOR40TA16 PO (20:24)
[2017-09-30] MEDS ORDERED: [UNRECOGNIZED DRUG - MIXTURE] (20:24)
[2017-09-30] MEDS ORDERED: AMIO200T PO (20:24)
[2017-09-30] MEDS ORDERED: POLY17S PO (20:24)
[2017-09-30] MEDS ORDERED: OMEGCAP PO (20:24)
[2017-09-30] MEDS ORDERED: OCUVTAB4 PO (20:24)
[2017-09-30] MEDS ORDERED: LIPI40TA PO (20:24)
[2017-09-30] MEDS ORDERED: LEVO0.5S18 EACH EYE (20:24)
[2017-09-30] MEDS ORDERED: TEMA15CA PO (20:24)
[2017-09-30] MEDS ORDERED: CORE25TA PO (20:24)
[2017-09-30] MEDS ORDERED: VITATAB43 PO (20:24)
[2017-09-30] MEDS ORDERED: ASPI-516 CHEW (20:24)
[2017-09-30] MEDS: D5-1/2 NS + KCL 20 MEQ INJ 1,000 ML IV SCH (20:31)
[2017-09-30 22:06] VITALS: PULSE 67; RESP 16; TEMP 97.2; O2SAT 96
[2017-09-30 22:51] VITALS: BP 184/96
[2017-09-30] MEDS ORDERED: CHLORHEXIDINE GLUCONATE 2 % 1 PACK (2 CLOTHS) TOPICAL PRN (23:00)
[2017-09-30] MEDS ORDERED: LACTATED RINGER'S 1000 ML IV PRN (23:00)
[2017-09-30] MEDS ORDERED: MORPHINE SULFATE 4 MG/ML INJ IV PRN (23:00)
[2017-09-30] MEDS ORDERED: SODIUM CHLORID 0.9% 500 ML IV PRN (23:00)
[2017-09-30] MEDS ORDERED: POVIDONE IODINE 5% (ANTISEPSIS KIT) 4 APPLICATIONS EACH NARE PRN (23:00)
[2017-09-30] MEDS ORDERED: CARB25TA18 PO (23:02)
--- NOTE | 2017-09-30 23:11 | HHI.HP ---
HPI Service [facility] Primary Care Physician Jessica Ramos MD Admission Diagnosis Acute L2 fracture Diagnoses: Chief Complaint: back pain Travel History International Travel<30 Days: No Contact w/Intl Traveler <30 Da: No Traveled to Known Affected Are: No History of Present Illness 87 y/o male with a history of Hypertension, Hyperlipidemia, CAD, CHF, Parkinson' s disease, History of prostate cancerstatus post prostatectomy presented to the ED with complaints of back pain for 2 weeks. He states 2 weeks ago he misstepped and twisted his back almost falling. He states the pain has been constant, sharp stabbing, to his lower back, 10/10, for the last 2 weeks, denies any radiation but complains of left sided weakness, worse with movement and better with rest. Denies any chest pain, sob, fever or chills. Review of Systems Except as stated in HPI: all other systems reviewed are Neg Past Family Social History Past Medical History Hypertension Hyperlipidemia CAD CHF Parkinson's disease History of prostate cancerstatus post prostatectomy Past Surgical History Coronary artery stent placements PPM/AICD CABG Aortic valve replacement Bilateral total knee arthroplasty ORIF of wrist fracture Left hip replacement Reported Medications Reported Meds & Active Scripts Active Reported Carbidopa-Levo 25-100 mg Odt (Carbidopa/Levodopa) 25 Mg-100 Mg Tab.rapdis 1.5 Tab PO TID Vitamin D70-Qfyef Acid (Cobalamine Combinations) 500-400 Mcg Tab 1 Tab PO DAILY Polyethylene Glycol 3350 Powder (Polyethylene Glycol) 17 Gram Pow 17 Gm PO DAILY Temazepam 15 Mg Cap 15 Mg PO HS PRN Aspirin 81 Mg Chew 81 Mg CHEW DAILY Levobunolol Opth Drops (Levobunolol HCl) 0.5% Drops 1-2 Drop EACH EYE DAILY Preservision Areds (Multiple Vitamins W/ Minerals) 1 Tab 1 Tab PO DAILY [place]-3 Fish Oil/Vitamin (Fish Oil-Cholecalciferol) 1,000-1,000 Mg Cap 1 Cap PO DAILY Atorvastatin (Atorvastatin Calcium) 40 Mg Tab 40 Mg PO HS Lipitor (Atorvastatin Calcium) 40 Mg Tab 40 Mg PO HS Coreg (Carvedilol) 25 Mg Tab 25 Mg PO DAILY Amiodarone (Amiodarone HCl) 200 Mg Tab 200 Mg PO DAILY Potassium Chloride ER (Potassium Chloride) 10 Meq Tab 30 Meq PO DAILY Potassium Chloride ER (Potassium Chloride) 10 Meq Tab 40 Meq PO HS Amlodipine (Amlodipine Besylate) 2.5 Mg Tab 2.5 Mg PO BID Alprazolam 0.25 Mg Tab 0.25 Mg PO BID PRN Furosemide 40 Mg Tab 40 Mg PO DAILY Allergies: Coded Allergies: naproxen (Unverified Allergy, Severe, "face,lips and hands swell", 09/30/17) MRI PRECAUTION (Verified Adverse Reaction, Unknown, PACEMAKER, 09/30/17) PACEMAKER PRESENT 10/29/15 JLA Active Ordered Medications Current Medications Medications (Trade) Dose Ordered Sig/Noe Route Start Time Stop Time Status Last Admin Potassium Chloride/Dextrose/ Sod Cl 1,000 ml @ 100 mls/hr Q10H IV 09/30/17 19:59 09/30/17 20:31 (NS Flush) 2 ml UNSCH PRN IV FLUSH 09/30/17 20:00 (NS Flush) 2 ml BID IV FLUSH 09/30/17 21:00 (Zofran Inj) 4 mg Q6H PRN IVP 09/30/17 20:00 (Narcan Inj) 0.4 mg UNSCH PRN IV PUSH 09/30/17 20:00 (Milk Of Magnesia Liq) 30 ml Q12H PRN PO 09/30/17 20:00 (Senokot) 17.2 mg Q12H PRN PO 09/30/17 20:00 (Dulcolax Supp) 10 mg DAILY PRN RECTAL 09/30/17 20:00 (Lactulose Liq) 30 ml DAILY PRN PO 09/30/17 20:00 (Morphine Inj) 2 mg Q3H PRN IV 09/30/17 23:00 Lactated Ringer's 1,000 ml @ 30 mls/hr Q24H PRN IV 09/30/17 23:00 10/03/17 22:59 Sodium Chloride 500 ml @ 30 mls/hr [id number] PRN IV 09/30/17 23:00 10/03/17 22:59 (Betadine 5% Antisepsis Kit) 1 applic PLAN COORDINATOR PRN EACH NARE 09/30/17 23:00 10/03/17 22:59 (Chlorhexidine 2% Cloth) 3 pack PLAN COORDINATOR PRN TOPICAL 09/30/17 23:00 10/03/17 22:59 Family History Patient is unsure of family history Social History Patient denies any tobacco or alcohol use. Physical Exam Vital Signs Vital Signs Date Time Temp Pulse Resp B/P (MAP) Pulse Ox O2 Delivery O2 Flow Rate FiO2 09/30/17 22:51 184/96 (125) 09/30/17 22:06 97.2 67 16 96 09/30/17 21:51 09/30/17 19:15 70 16 161/88 (112) 95 Room Air 09/30/17 19:14 70 16 09/30/17 18:25 70 15 219/104 (142) 96 Room Air 09/30/17 14:30 98.1 70 18 167/82 (110) 97 Physical Exam GENERAL: This is a well-nourished, well-developed patient, in no apparent distress. SKIN: No rashes, ecchymoses or lesions. Cool and dry. HEAD: Atraumatic. Normocephalic. EYES: Pupils equal round and reactive. Extraocular motions intact. No scleral icterus. No injection or drainage. NECK: Trachea midline. No JVD or lymphadenopathy. CARDIOVASCULAR: Regular rate and rhythm without murmurs, gallops, or rubs. RESPIRATORY: Clear to auscultation. Breath sounds equal bilaterally. No wheezes , rales, or rhonchi. GASTROINTESTINAL: Abdomen soft, non-tender, nondistended. No hepato-splenomegaly , or palpable masses. No guarding. MUSCULOSKELETAL: Extremities without clubbing, cyanosis, or edema. Lumbar tenderness. No calf tenderness. NEUROLOGICAL: Awake and alert. Normal speech. Left upper extremity and left lower extremity weaker than right Laboratory Laboratory Tests Test 09/30/17 18:37 White Blood Count 10.3 Red Blood Count 4.07 Hemoglobin 12.8 Hematocrit 38.2 Mean Corpuscular Volume 93.7 Mean Corpuscular Hemoglobin 31.4 Mean Corpuscular Hemoglobin Concent 33.5 Red Cell Distribution Width 16.0 Platelet Count 177 Mean Platelet Volume 8.1 Neutrophils (%) (Auto) 59.1 Lymphocytes (%) (Auto) 25.2 Monocytes (%) (Auto) 10.1 Eosinophils (%) (Auto) 4.9 Basophils (%) (Auto) 0.7 Neutrophils # (Auto) 6.1 Lymphocytes # (Auto) 2.6 Monocytes # (Auto) 1.0 Eosinophils # (Auto) 0.5 Basophils # (Auto) 0.1 CBC Comment DIFF FINAL Differential Comment Prothrombin Time 10.9 Prothromb Time International Ratio 1.1 Activated Partial Thromboplast Time 24.5 Blood Urea Nitrogen 25 Creatinine 1.27 Random Glucose 85 Calcium Level 8.5 Sodium Level 146 Potassium Level 3.7 Chloride Level 110 Carbon Dioxide Level 27.1 Anion Gap 9 Estimat Glomerular Filtration Rate 54 Result Diagram: 09/30/17 1837 09/30/17 1837 Imaging Last Impressions Lumbar Spine CT 09/30/17 1552 Signed Impressions: Service Date/Time: Saturday, September 30, 2017 16:34 - CONCLUSION: 1. Acute fracture in the superior aspect of the L2 vertebral body involving the entire superior aspect of the L2 vertebral body with slight retropulsion of the posterior superior aspect of the L2 vertebral body causing minimal impress on the thecal sac. 2. Degenerative change as described above. There is severe stenosis at the L4-L5 level and moderate stenosis at the L3-L4 level. Toribio Callaway MD Caprini VTE Risk Assessment Caprini VTE Risk Assessment: No/Low Risk (score <= 1) Caprini Risk Assessment Model Point Value = 1 Point Value = 2 Point Value = 3 Point Value = 5 Age 41-60 Minor surgery BMI > 25 kg/m2 Swollen legs Varicose veins or History of unexplained or recurrent spontaneous Oral contraceptives or hormone replacement Sepsis (< 1 month) Serious lung disease, including pneumonia (< 1 month) Abnormal pulmonary function Acute myocardial infarction Congestive heart failure (< 1 month) History of inflammatory bowel disease Medical patient at bed rest Age 61-74 Arthroscopic surgery Major open surgery (> 45 min) Laparoscopic surgery (> 45 min) Malignancy Confined to bed (> 72 hours) Immobilizing plaster cast Central venous access Age >= 75 History of VTE Family history of VTE Factor V Leiden Prothrombin [id number] Lupus anticoagulant Anticardiolipin antibodies Elevated serum homocysteine Heparin-induced thrombocytopenia Other congenital or acquired thrombophilia Stroke (< 1 month) Elective arthroplasty Hip, pelvis, or leg fracture Acute spinal cord injury (< 1 month) Prophylaxis Regimen Total Risk Factor Score Risk Level Prophylaxis Regimen 0-1 Low Early ambulation 2 Moderate Order ONE of the following: *Sequential Compression Device (SCD) *Heparin 5000 units SQ BID 3-4 Higher Order ONE of the following medications: *Heparin 5000 units SQ TID *Enoxaparin/Lovenox 40 mg SQ daily (WT < 150 kg, CrCl > 30 mL/min) *Enoxaparin/Lovenox 30 mg SQ daily (WT < 150 kg, CrCl > 10-29 mL/min) *Enoxaparin/Lovenox 30 mg SQ BID (WT < 150 kg, CrCl > 30 mL/min) AND/OR *Sequential Compression Device (SCD) 5 or more Highest Order ONE of the following medications: *Heparin 5000 units SQ TID (Preferred with Epidurals) *Enoxaparin/Lovenox 40 mg SQ daily (WT < 150 kg, CrCl > 30 mL/min) *Enoxaparin/Lovenox 30 mg SQ daily (WT < 150 kg, CrCl > 10-29 mL/min) *Enoxaparin/Lovenox 30 mg SQ BID (WT < 150 kg, CrCl > 30 mL/min) AND *Sequential Compression Device (SCD) Assessment and Plan Problem List: (1) L2 vertebral fracture ICD Code: S32.029A - Unspecified fracture of second lumbar vertebra, initial encounter for closed fracture Status: Acute (2) CHF (congestive heart failure) ICD Code: I50.9 - Heart failure, unspecified Status: Chronic (3) Hyperlipemia ICD Code: E78.5 - Hyperlipidemia, unspecified Status: Chronic (4) Parkinsons disease ICD Code: G20 - Parkinson's disease Status: Chronic (5) Hypertension ICD Code: I10 - Essential (primary) hypertension Status: Chronic Assessment and Plan 87 y/o male with a history of Hypertension, Hyperlipidemia, CAD, CHF, Parkinson' s disease, History of prostate cancerstatus post prostatectomy presented to the ED with complaints of back pain for 2 weeks. L2 acute fracture status post trauma Lumbar spine CT shows acute fracture in the superior aspect of the L2 vertebral body involving the entire superior aspect of the L2 vertebral body with slight pressure portion of the posterior aspect of the L2 causing minimal impress on the WILTON sac. Severe stenosis at the L4-L5 level and moderate stenosis at L3-L4 -Consult neurosurgery for recommendations -N.p.o. after midnight for possible surgery, IVF for hydration -Pain management with IV Hypertension, chronic -Resume home medications amlodipine, monitor vitals CHF, chronic, diastolic Last echo 2016 shows an EF of 55-60% -Monitor for fluid overload -Resume home medications Coreg, Lasix Hyperlipidemia, chronic -Resume home medications Lipitor Parkinson's disease, chronic -Resume home medications levodopa/carbidopa DVT prophylaxis: SCDs, hold chemical prophylaxis due to possible surgery Discussed Condition With Patient and RN Physician Certification 2 Midnight Certification Type: Admission for Inpatient Services Order for Inpatient Services The services are ordered in accordance with Medicare regulations or non- Medicare payer requirements, as applicable. In the case of services not specified as inpatient-only, they are appropriately provided as inpatient services in accordance with the 2-midnight benchmark. Estimated LOS (days): 3 days is the estimated time the patient will need to remain in the hospital, assuming treatment plan goals are met and no additional complications. Post-Hospital Plan: Not yet determined Problem Qualifiers (1) L2 vertebral fracture: Qualified Codes: S32.029A - Unspecified fracture of second lumbar vertebra, initial encounter for closed fracture (2) CHF (congestive heart failure): Qualified Codes: I50.32 - Chronic diastolic (congestive) heart failure (3) Hyperlipemia: Qualified Codes: E78.2 - Mixed hyperlipidemia (4) Hypertension: Qualified Codes: I10 - Essential (primary) hypertension Anna Russo September 30, 2017 23:11
[2017-09-30] MEDS ORDERED: CARBIDOPA/LEVODOPA 25 MG/100 MG TAB PO ONE (23:15)
[2017-09-30] MEDS: ALPRAZolam 0.25 MG TAB PO PRN (23:54)
[2017-10-01 00:38] VITALS: BP 180/88; PULSE 65; RESP 18; TEMP 97.5; O2SAT 94
[2017-10-01] MEDS: POTASSIUM CHLORIDE 10 MEQ CONTROLLED RELEASE TAB PO SCH ×2 (02:50→21:00)
[2017-10-01] MEDS: SODIUM CHLORIDE 0.9% FLUSH 10 ML FLUSH IV FLUSH SCH ×3 (02:51→21:00)
[2017-10-01] MEDS: amLODIPine BESYLATE 5 MG TAB PO SCH ×3 (02:51→21:00)
[2017-10-01 03:55] VITALS: BP 170/86; PULSE 70; RESP 18; TEMP 98.7; O2SAT 92
[2017-10-01] MEDS: D5-1/2 NS + KCL 20 MEQ INJ 1,000 ML IV SCH (05:39)
[2017-10-01] MEDS: CARVEDILOL 12.5 MG TAB PO SCH (08:34)
[2017-10-01] MEDS: FUROSEMIDE 40 MG TAB PO SCH (08:34)
[2017-10-01] MEDS: CARBIDOPA/LEVODOPA 25 MG/100 MG TAB PO SCH ×3 (08:34→18:00)
[2017-10-01] MEDS: AMIODARONE 200 MG TAB PO SCH (08:35)
[2017-10-01] MEDS: LEVOBUNOLOL HCL 0.5% OPHT SOLN 5 ML BTL EACH EYE SCH (09:00)
[2017-10-01 09:03] VITALS: BP 192/103; PULSE 70; RESP 18; TEMP 97.4; O2SAT 95
--- NOTE | 2017-10-01 09:42 | HHI.PR ---
Subjective Remarks Follow-up for back pain, L2 fracture, spinal stenosis. The patient is seen with his at bedside. Patient reports his back pain is bearable if he does not move. He states when he is lying in bed he mostly just has some right hip pain. He states it is very difficult for him to ambulate due to the low back pain. He has no other new medical complaints including no headache, lightheadedness, chest pain, shortness of breath, or abdominal complaints. He states he was recently evaluated by Dr. Cantrell for his abdominal hernias, recommended nonoperative management. His shank taper is Dr. Briscoe. Objective Vitals Vital Signs Date Time Temp Pulse Resp B/P (MAP) Pulse Ox O2 Delivery O2 Flow Rate FiO2 10/01/17 09:03 97.4 70 18 192/103 (132) 95 10/01/17 03:55 98.7 70 18 170/86 (114) 92 10/01/17 00:38 97.5 65 18 180/88 (118) 94 09/30/17 22:51 184/96 (125) 09/30/17 22:06 97.2 67 16 96 09/30/17 21:51 09/30/17 19:15 70 16 161/88 (112) 95 Room Air 09/30/17 19:14 70 16 09/30/17 18:25 70 15 219/104 (142) 96 Room Air 09/30/17 14:30 98.1 70 18 167/82 (110) 97 I/O 09/30/17 09/30/17 09/30/17 10/01/17 10/01/17 10/01/17 07:00 15:00 23:00 07:00 15:00 23:00 Intake Total 480 ml Output Total 250 ml Balance 230 ml Intake Oral 480 ml Output Urine Total 250 ml # Voids 1 # Bowel Movements 0 Result Diagram: 09/30/17183609/30/171836 Imaging Last Impressions Lumbar Spine X-Ray 10/01/17 0000 Signed Impressions: Service Date/Time: Sunday, October 01, 2017 11:00 - CONCLUSION: 1. Redemonstration moderate L2 superior plate compression fracture with mild posterior buckling of the superior plate. 2. 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 3. Loops of moderately dilated air- filled colon in the upper midabdomen and left lower quadrant corresponding to redundant loops of distal colon on recent CT scan. Finding may reflect developing colonic ileus although degree of distention is not significantly changed. Efra Barajas MD Lumbar Spine CT 09/30/17 1552 Signed Impressions: Service Date/Time: Saturday, September 30, 2017 16:34 - CONCLUSION: 1. Acute fracture in the superior aspect of the L2 vertebral body involving the entire superior aspect of the L2 vertebral body with slight retropulsion of the posterior superior aspect of the L2 vertebral body causing minimal impress on the thecal sac. 2. Degenerative change as described above. There is severe stenosis at the L4-L5 level and moderate stenosis at the L3-L4 level. Toribio Callaway MD Objective Remarks GENERAL: Well-nourished, well-developed pleasant elderly male patient in [facility]. SKIN: Warm and dry. No rash. HEENT: Normocephalic. Atraumatic. Pupils equal and round. Mucous membranes pink and moist. CARDIOVASCULAR: Regular rate and rhythm. No murmur appreciated. RESPIRATORY: No accessory muscle use. Clear to auscultation. Breath sounds equal bilaterally. GASTROINTESTINAL: Abdomen soft, non-tender, nondistended. Normoactive bowel sounds x4. MUSCULOSKELETAL: No obvious deformities. 2+ BLE pitting edema. Unable to sit up in bed due to low back pain. Right hip pain upon ROM exercises. NEUROLOGICAL: Awake and alert. No obvious cranial nerve deficits. Motor grossly within normal limits. Moving all extremities spontaneously. Normal speech. PSYCHIATRIC: Appropriate mood and affect; insight and judgment normal. Medications and IVs Current Medications Medications (Trade) Dose Ordered Sig/Noe Route Start Time Stop Time Status Last Admin Potassium Chloride/Dextrose/ Sod Cl 1,000 ml @ 100 mls/hr Q10H IV 09/30/17 19:59 10/01/17 05:39 (NS Flush) 2 ml UNSCH PRN IV FLUSH 09/30/17 20:00 (NS Flush) 2 ml BID IV FLUSH 09/30/17 21:00 10/01/17 08:35 (Zofran Inj) 4 mg Q6H PRN IVP 09/30/17 20:00 (Narcan Inj) 0.4 mg UNSCH PRN IV PUSH 09/30/17 20:00 (Milk Of Magnesia Liq) 30 ml Q12H PRN PO 09/30/17 20:00 (Senokot) 17.2 mg Q12H PRN PO 09/30/17 20:00 (Dulcolax Supp) 10 mg DAILY PRN RECTAL 09/30/17 20:00 (Lactulose Liq) 30 ml DAILY PRN PO 09/30/17 20:00 (Morphine Inj) 2 mg Q3H PRN IV 09/30/17 23:00 10/01/17 02:50 Lactated Ringer's 1,000 ml @ 30 mls/hr Q24H PRN IV 09/30/17 23:00 10/03/17 22:59 Sodium Chloride 500 ml @ 30 mls/hr [id number] PRN IV 09/30/17 23:00 10/03/17 22:59 (Betadine 5% Antisepsis Kit) 1 applic SPECIAL EVENTS MANAGER PRN EACH NARE 09/30/17 23:00 10/03/17 22:59 (Chlorhexidine 2% Cloth) 3 pack SPECIAL EVENTS MANAGER PRN TOPICAL 09/30/17 23:00 10/03/17 22:59 (Xanax) 0.25 mg BID PRN PO 09/30/17 23:30 09/30/17 23:54 (Cordarone) 200 mg DAILY PO 10/01/17 09:00 10/01/17 08:35 (Norvasc) 2.5 mg BID PO 09/30/17 23:30 10/01/17 08:35 (Lipitor) 40 mg HS PO 10/01/17 21:00 (Coreg) 25 mg DAILY PO 10/01/17 09:00 10/01/17 08:34 (Lasix) 40 mg DAILY PO 10/01/17 09:00 10/01/17 08:34 (Betagan Liquifilm 0.5%) 2 drop DAILY EACH EYE 10/01/17 09:00 10/01/17 09:00 (KCl) 40 meq HS PO 09/30/17 23:30 10/01/17 02:50 (Restoril) 15 mg HS PRN PO 09/30/17 23:30 (Sinemet 25-100 Mg) 1.5 tab TID PO 10/01/17 09:00 10/01/17 08:34 A/P Problem List: (1) L2 vertebral fracture ICD Code: S32.029A - Unspecified fracture of second lumbar vertebra, initial encounter for closed fracture Status: Acute (2) CHF (congestive heart failure) ICD Code: I50.9 - Heart failure, unspecified Status: Chronic (3) Hyperlipemia ICD Code: E78.5 - Hyperlipidemia, unspecified Status: Chronic (4) Parkinsons disease ICD Code: G20 - Parkinson's disease Status: Chronic (5) Hypertension ICD Code: I10 - Essential (primary) hypertension Status: Chronic Assessment and Plan 87 y/o male with a history of Hypertension, Hyperlipidemia, CAD, CHF, Parkinson' s disease, History of prostate cancerstatus post prostatectomy presented to the ED with complaints of back pain for 2 weeks. Acute L2 Fracture, Spinal Stenosis: s/p injury -Lumbar spine CT shows acute fracture in the superior aspect of the L2 vertebral body involving the entire superior aspect of the L2 vertebral body with slight pressure portion of the posterior aspect of the L2 causing minimal impress on thecal sac. Severe stenosis at the L4-L5 level and moderate stenosis at L3-L4 -Consult neurosurgery for recommendations -N.p.o. for now for possible surgery -Give gentle IVF hydration for now while NPO, caution with hx of CHF -Pain management with IV Hypertension, chronic -Resume home medications amlodipine, coreg -Monitor BP, adjust antihypertensives as needed CHF, chronic, diastolic: Last echo 2015 shows an EF of 55-60% -Monitor for fluid overload, give gentle IVF while NPO -Resume home medications Coreg, Lasix, Amiodarone Hyperlipidemia, chronic -Resume home medications Lipitor Parkinson's disease, chronic -Resume home medications levodopa/carbidopa DVT prophylaxis: SCDs, hold chemical prophylaxis due to possible upcoming surgery Problem Qualifiers (1) L2 vertebral fracture: Qualified Codes: S32.029A - Unspecified fracture of second lumbar vertebra, initial encounter for closed fracture (2) CHF (congestive heart failure): Qualified Codes: I50.32 - Chronic diastolic (congestive) heart failure (3) Hyperlipemia: Qualified Codes: E78.2 - Mixed hyperlipidemia (4) Hypertension: Qualified Codes: I10 - Essential (primary) hypertension Ashanti Gray PA-C October 01, 2017 9:42 am
[2017-10-01 10:28] LABS: AUTOMATED NEUTROPHIL # 6.3 TH/MM3 (1.8-7.7); BASOPHIL # 0.1 TH/MM3 (0-0.2); BASOPHIL % 0.9 % (0.0-2.0); EOSINOPHIL # 0.6 TH/MM3 (0-0.4); EOSINOPHIL % 5.3 % (0.0-4.0); HEMATOCRIT 39.4 % (39.0-51.0); HEMOGLOBIN 13.1 GM/DL (13.0-17.0); LYMPH % 24.2 % (9.0-44.0); LYMPHOCYTE # 2.6 TH/MM3 (1.0-4.8); MEAN CELL VOLUME 93.9 FL (80.0-100.0); MEAN CORPUSCULAR HEMOGLOBIN 31.2 PG (27.0-34.0); MEAN CORPUSCULAR HGB CONC 33.2 % (32.0-36.0); MEAN PLATELET VOLUME 8.5 FL (7.0-11.0); MONO % 10.4 % (0.0-8.0); MONOCYTE # 1.1 TH/MM3 (0-0.9); NEUT % 59.2 % (16.0-70.0); PLATELET COUNT 167 TH/MM3 (150-450); RED BLOOD COUNT 4.19 MIL/MM3 (4.50-5.90); RED CELL DISTRIBUTION WIDTH 15.8 % (11.6-17.2); WHITE BLOOD COUNT 10.7 TH/MM3 (4.0-11.0)
[2017-10-01 10:42] LABS: ALBUMIN 3.3 GM/DL (3.4-5.0); ALT (GPT) 7 U/L (12-78); AST (GOT) 32 U/L (15-37); BICARBONATE 27.3 MEQ/L (21.0-32.0); BLOOD UREA NITROGEN 17 MG/DL (7-18); CALCIUM 8.2 MG/DL (8.5-10.1); CHLORIDE 110 MEQ/L (98-107); CREATININE 1.02 MG/DL (0.60-1.30); GLOMERULAR FILTRATION RATE 69 ML/MIN (>89); GLUCOSE,RANDOM 82 MG/DL (74-106); SODIUM (NA) 144 MEQ/L (136-145)
[2017-10-01 10:44] LABS: ALKALINE PHOSPHATASE 102 U/L (45-117); TOTAL BILIRUBIN ADULT 0.7 MG/DL (0.2-1.0); TOTAL PROTEIN 6.7 GM/DL (6.4-8.2)
--- NOTE | 2017-10-01 10:49 | EKG ---
Date Performed: 10/01/2017 Time Performed: 07:05:19 PTAGE: 87 years EKG: ELECTRONIC ATRIAL PACEMAKER ELECTRONIC VENTRICULAR PACEMAKER ABNORMAL RHYTHM ECG PREVIOUS TRACING : 10/29/2015 11.41 DOCTOR: Darien Jordan Interpretating Date/Time 10/01/2017 10:47:07
--- NOTE | 2017-10-01 10:51 | EKG ---
Date Performed: 10/01/2017 Time Performed: 05:04:42 PTAGE: 87 years EKG: ELECTRONIC ATRIAL PACEMAKER ELECTRONIC VENTRICULAR PACEMAKER ABNORMAL RHYTHM ECG PREVIOUS TRACING : 10/29/2015 11.41 DOCTOR: Darien Jordan Interpretating Date/Time 10/01/2017 10:48:29
[2017-10-01 11:30] VITALS: BP 130/68; PULSE 70; RESP 18; TEMP 97.2; O2SAT 95
--- NOTE | 2017-10-01 11:48 | RADRPT ---
EXAM DATE/TIME: 10/01/2017 11:00 [place] COMPARISON: CT ABDOMEN & PELVIS W CONTRAST, September 15, 2017, 6:21. CT LUMBAR SPINE W/O CONTRAST, September 30, 2017, 16 :34. INDICATIONS : Fracture. MEDICAL HISTORY : Cardiovascular disease. Hypertension SURGICAL HISTORY : Pacemaker. CABG Coronary artery stent.GB. ENCOUNTER: Subsequent ACUITY: 2 days PAIN SCORE: 0/10 LOCATION: Lumbar spine. FINDINGS: Redemonstration of moderate compression fracture of the L2 superior endplate. There is mild posterior buckling of the superior endplate. Remaining vertebral body heights are stable. Sagittal alignment i s maintained. 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 This appears most prominent at the L4-5 level. Extensiv e vascular calcifications. Loops of dilated air-filled colon are again noted in the upper and midabdo men which correspond to redundancy and CT scan. CONCLUSION: 1. Redemonstration moderate L2 superior plate compression fracture with mild posterior buckling of th e superior plate. 2. 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 3. Loops of moderately dilated air-filled colon in the upper midabdomen and left lower quadrant corre sponding to redundant loops of distal colon on recent CT scan. Finding may reflect developing colonic ileus although degree of distention is not significantly changed. Efra Barajas MD on October 01, 2017 at 11:38 Board Certified Radiologist. This report was verified electronically.
[2017-10-01] MEDS ORDERED: LACTATED RINGER'S 1000 ML INJ 2,000 ML IV ONE (12:00)
[2017-10-01] MEDS ORDERED: PHENYLEPH/NS 1000 MCG/10 ML SYR IV ONE (12:00)
[2017-10-01] MEDS ORDERED: PHENYLEPHRINE HCL 10 MG/ML VIAL IV ONE (12:00)
[2017-10-01] MEDS ORDERED: ONDANSETRON HCL 4 MG/2 ML VIAL IV PUSH ONE (12:00)
[2017-10-01] MEDS ORDERED: ROCURONIUM INJ 50 MG/5 ML SYRINGE IV PUSH ONE (12:00)
[2017-10-01] MEDS ORDERED: NEOSTIGMINE 5 MG/5 ML SYRINGE IV PUSH ONE (12:00)
[2017-10-01] MEDS ORDERED: LIDOCAINE HCL 1% PF 5 ML SYRINGE OTHER ONE (12:00)
[2017-10-01] MEDS ORDERED: DEXAMETHASONE SOD PHOS 4 MG/ML VIAL IV ONE (12:00)
[2017-10-01] MEDS ORDERED: GLYCOPYRROLATE 1 MG/5 ML SYRINGE IV PUSH ONE (12:00)
[2017-10-01] MEDS ORDERED: PROPOFOL 200 MG/20 ML AMP IV ONE (12:00)
[2017-10-01] MEDS ORDERED: ACETAMINOPHEN/HYDROcodone 325 MG/7.5 MG TAB PO PRN (14:45)
[2017-10-01] MEDS ORDERED: ACETAMINOPHEN 325 MG TAB PO PRN ×2 (14:45→17:45)
[2017-10-01] MEDS: ALPRAZolam 0.25 MG TAB PO PRN (14:51)
[2017-10-01] MEDS ORDERED: PROPOFOL 500 MG/50 ML INJ 150 ML ONE (16:11)
[2017-10-01] MEDS ORDERED: KETAMINE HCL 500 MG/10 ML VIAL ONE (16:11)
[2017-10-01] MEDS ORDERED: ACETAMINOPHEN 1000 MG/100 ML 100 ML IV ONE (16:12)
[2017-10-01] MEDS ORDERED: ARTIFICIAL TEARS OPTH OINT 3.5 APPLIC/3.5 GM TUBO ONE (16:12)
[2017-10-01] MEDS ORDERED: GENTAMICIN SULFATE 80 MG/2 ML VIAL ONE (16:17)
[2017-10-01] MEDS ORDERED: GELFOAM SIZE 100 ONE ×2 (16:17→17:31)
[2017-10-01] MEDS ORDERED: ceFAZolin 2 GM PREMIX 50 ML ONE (16:17)
[2017-10-01] MEDS ORDERED: THROMBIN (TOPICAL) 5,000 UNIT VIAL ONE (16:19)
[2017-10-01] MEDS ORDERED: BUPIVACAINE/EPINEPHRINE 0.5% PF 30 ML VIAL ONE (16:25)
[2017-10-01] MEDS ORDERED: VANCOMYCIN HCL 1000 MG VIAL ONE (16:25)
[2017-10-01 16:30] VITALS: BP 147/82; PULSE 66; RESP 18; TEMP 97.3; O2SAT 94
[2017-10-01] MEDS ORDERED: MORPHINE SULFATE 4 MG/ML INJ IV PUSH PRN ×2 (17:45)
[2017-10-01] MEDS ORDERED: MIDAZOLAM HCL 2 MG/2 ML VIAL ONE (19:12)
--- NOTE | 2017-10-01 20:11 | PD.OP ---
Operative Report Date of Surgery: October 02, 2017 Preoperative Diagnosis: L2 unstable fracture Postoperative Diagnosis: L2 unstable fracture Procedure: Open reduction, internal fixation of L2 fracture, L1-2, L2-3 posterolateral fusion using autologous iliac crest bone graft with demineralized bone matrix, L1-2, L2-3 segmental instrumental fixation using transpedicular screws and rods , L2 kyphoplasty, microsurgical dissection Anesthesia: general endotracheal Surgeon: Milo Shafer Secretary Of Police(s): Rosa Isela López Operation and Findings: INDICATIONS FOR THE SURGICAL PROCEDURE Mr Diego is a 87 year-old male who presented with severe mechanical back pain related to an unstable L2 spinal fracture. A surgical decompression with reduction of the fracture and arthrodhesis were indicated as the most appropriate treatment. The [id number] details of the procedure, indications, alternatives, risks and potential complications were fully discussed with the patient. The patient fully understood. All questions were answered. No guarantees were given. The patient voiced requesting the procedure and provided informed consents. The patient had been offered the alternative of delaying the procedure and continuing with nonsurgical management. DETAILS OF THE SURGICAL PROCEDURE Prior to the procedure,the surgical incision was marked in the preoperative surgical holding room, and the procedure, risks, and potential complications revisited with the patient. Placement of electrodes for intraoperative neurophysiological monitoring was completed. The patient was taken to the operative room, and following induction of general anesthesia, endotracheal intubation was performed. A Germain catheter bilateral [place] and sequential compression devices were placed and kept throughout the procedure. The patient was carefully rolled into the prone position over a Sea table with a gell rolls. All pressure points were carefully padded with eggcrate mattress. The eyes were tapped shut after ointment was applied by the anesthesiologist to prevent corneal abrasion. A Magdalene hugger was placed over the exposed lower body to maintain control of the core body temperature. The electrophysiological team placed the needles and electrodes in their proper location and baseline SSEP's and motor evoked potentials were registered. The thoracic lumbar region was prepped and draped in the usual sterile fashion. A localizing X-ray was performed with the C-arm and the fracture was localized. Two paramedian incisions were was outlined from the spinous process of L1 down to L3. Surgical Approach . The skin incisions were made with a #10 blade. Small bleeders were controlled with the cautery. The dissection was then carried out into deeper planes and through the thoracolumbar fascia with a Bovie. The intermuscular septum was identified and the muscles were blunted dissected along the septum. The facets and transverse process of L1 down to L3 were exposed and the proper anatomical landmarks were identified. A microsurgical self-retaining retractor was placed on the incision, and a localizing lateralizing cross-table x-ray was performed with an instrument underneath a lamina of the lumbar spine for confirmation of the level. Instrumental fixation At this point in the procedure, placement of bilateral transpedicular screws was necessary for stabilization of the spine. The levels were carefully marked with a TPS and bilateral transpedicular screws were placed using a standard fashion. Initially, the entry point for the screw was selected anatomically at the junction of the facet, with the transverse process, and the pars interarticularis. This was started with a Giamshetti needle followed by the use of a arora wire. L2 kyphoplasty Under Ap and lateral xray visualization, Jamshidi needles were carefully advanced to the entrance of the pedicle, and then into the vertebral body L2 under continuous fluoroscopic guidance. K-wires were placed inside the vertebral body of and the needles were carefully removed. A drill was used to create a trough into the vertebral body to insert a cannula. Once the cannula was located through the pedicle, the drill was removed and bilateral balloons were inserted into the L2 vertebral body for vertebral augmentation. A careful expansion of the balloon under continuous fluoroscopic guidance and manometric evaluation allowed expansion of the vertebral body. Then, the balloons were deflated and carefully removed and the voids created in the vertebral body were filled with bone cement under fluoroscopic visualization. A very good expansion of the vertebral bodies was achieved without evidence of extravasation or cement or other complications. The cannulas were then removed. Bilateral transpedicular screws were then placed into L2 underfluroscopic visualization before the cement hardens. Finally, bilateral transpedicular screws were carefully placed bilaterally at L1 and at L3 under fluoroscopic visualization. An appropriate purchase was achieved with all other screws. The position of each screw was assessed anatomically with an AP, lateral, oblique Xrays. An intraoperative scan view of the spine was then performed using the iso-centric c-arm. Each lumbar screw was then assessed electrophysiologically with a nerve stimulator. HARVESTING OF ILLIAC CREST BONE An incision was then made over the patient's right posterior iliac crest. The fascia was carefully opened with a Bovie and the posterior iliac crest was exposed. A small cortical window was created with an osteotome. Cancellous bone was then harvested, to be used during the interbody arthrodesis and the posterolateral fusion. Once an appropriate amount of bone was obtained, the incision was irrigated with antibiotic solution and hemostasis secured by packing the iliac crest with Surgicel. The cortical window was then repositioned and secured using 0 Vicryl sutures. The incision was irrigated and the fascia was closed with interrupted 0 Vicryl sutures. The subcutaneous tissue was approximated with 3-0 Vicryl sutures. Posterolateral fusion Then, the lateral gutters of the spine, facets and transverse processes were carefully decorticated with a TPS drill in preparation for the posterior lateral fusion. The incision was thoroughly irrigated with antibiotic solution. The posterolateral fusion was performed by carefully packing the gutters of the spine at L1-L2 down to L2-L3 with a autologous iliac crest bone graft combined with demineralized bone matrix. Completion of the Procedure The rods were brought to the field. Sequential application of the cap was achieved which allowed for further correction of the kyphosis. Final tightening of all screws was achieved with a torque wrench. Then, the incision was thoroughly irrigated with several liters of antibiotic solution. The decompression was reassessed with an nerve hook and found to be appropriate. Seven mm Sea-Zayas drain was left on the epidural space and was then externalized through a separate stab incision. The incision was then closed in layers. 0 Vicryl with interrupted sutures were used to close the thoracolumbar fascia. The superficial fascia was closed with 0 Vicryl sutures. Three-0 Vicryl was used to close the subcutaneous tissue. The skin was closed with 4-0 running subcuticular Vicryl. Dermabond was applied to the skin. The drain was secured 3-0 nylon. At the end of the procedure the sponges, needles, and instrument counts were all correct. Estimated blood loss was 150 cc's. No complications occurred. The patient received prophylactic antibiotics. The patient was then extubated and transferred to the recovery room in stable condition. The entire procedure was performed using electrophysiological monitor of the electromyogram, evoked potential and sphincters. No intraoperative abnormalities were detected. Milo Shafer MD October 01, 2017 20:11
[2017-10-01] MEDS ORDERED: HYDROmorphone HCL PCA 6 MG/30 ML IV SCH (20:15)
[2017-10-01] MEDS ORDERED: NALOXONE HCL 0.4 MG/ML AMP IV PUSH PRN (20:15)
[2017-10-01] MEDS ORDERED: diphenhydrAMINE HCL 50 MG/ML VIAL IV PUSH PRN (20:15)
[2017-10-01] MEDS ORDERED: DO NOT ADM ANY ANTICOAGULANT DRUGS PRN (20:50)
[2017-10-01] MEDS: ATORVASTATIN 40 MG TAB PO SCH (21:00)
[2017-10-01] MEDS ORDERED: MORPHINE SULFATE 4 MG/ML INJ ONE (21:03)
--- NOTE | 2017-10-01 21:16 | PD.CONS ---
[facility] Service Critical Care Medicine Consult Requested By Dr. Shafer Reason for Consult Critical care management Primary Care Physician Jessica Ramos MD History of Present Illness This is a 87-year-old male. The admission 09/30/2017. Date of consultation 10/01/2017. Patient is has been complaining of low back pain unable to move. 2 weeks duration. He states 2 weeks ago he misstepped and twisted his back almost falling. He states the pain has been constant, sharp stabbing, to his lower back, 03/05 CT lumbar spine 09/30 revealed acute fracture in the superior aspect of the L2 vertebral body involving the entire superior aspect of the L2 vertebral body with slight retropulsion of the posterior superior aspect of the L2 vertebral body causing minimal impress on the thecal sac. Degenerative change as described above. There is severe stenosis at the L4-L5 level and moderate stenosis at the L3-L4 level. Neurosurgery was consulted/Dr. Shafer Today the patient underwent L1 through 3 laminectomy with L2 kyphoplasty. Official postop note has not been dictated.. 1700 cc crystalloid. EBL 1 50 cc. 4 cc urine output. Currently on 4 L with a paced rhythm on telemetry.. Somewhat confused but recently extubated. Hemodynamically stable. Review of Systems ROS Limitations: Clinical Condition, Altered Mental Status Past Family Social History Allergies: Coded Allergies: naproxen (Unverified Allergy, Severe, "face,lips and hands swell", 09/30/17) MRI PRECAUTION (Verified Adverse Reaction, Unknown, PACEMAKER, 09/30/17) PACEMAKER PRESENT 10/29/15 JLA Past Medical History Hypertension/essential Hyperlipidemia Coronary artery disease History of prostate cancer Parkinson's disease Congestive heart failure with ejection fraction of 55%/diastolic chronic? Constipation Insomnia Glaucoma Past Surgical History Coronary artery disease stents Pacemaker/AICD CABG Aortic valve replacement/tissue 2007 Bilateral total knee replacement Wrist surgery Left total hip replacement Reported Medications Carbidopa-Levo 25-100 mg Odt (Carbidopa/Levodopa) 25 Mg-100 Mg Tab.rapdis 1.5 Tab PO TID Vitamin R74-Kpaff Acid (Cobalamine Combinations) 500-400 Mcg Tab 1 Tab PO DAILY Polyethylene Glycol 3350 Powder (Polyethylene Glycol) 17 Gram Pow 17 Gm PO DAILY Temazepam 15 Mg Cap 15 Mg PO HS PRN Aspirin 81 Mg Chew 81 Mg CHEW DAILY Levobunolol Opth Drops (Levobunolol HCl) 0.5% Drops 1-2 Drop EACH EYE DAILY Preservision Areds (Multiple Vitamins W/ Minerals) 1 Tab 1 Tab PO DAILY [place]-3 Fish Oil/Vitamin (Fish Oil-Cholecalciferol) 1,000-1,000 Mg Cap 1 Cap PO DAILY Atorvastatin (Atorvastatin Calcium) 40 Mg Tab 40 Mg PO HS Lipitor (Atorvastatin Calcium) 40 Mg Tab 40 Mg PO HS Coreg (Carvedilol) 25 Mg Tab 25 Mg PO DAILY Amiodarone (Amiodarone HCl) 200 Mg Tab 200 Mg PO DAILY Potassium Chloride ER (Potassium Chloride) 10 Meq Tab 30 Meq PO DAILY Potassium Chloride ER (Potassium Chloride) 10 Meq Tab 40 Meq PO HS Amlodipine (Amlodipine Besylate) 2.5 Mg Tab 2.5 Mg PO BID Alprazolam 0.25 Mg Tab 0.25 Mg PO BID PRN Furosemide 40 Mg Tab 40 Mg PO DAILY Active Ordered Medications Reviewed in EMR Family History Patient does not know his family history Social History Denies tobacco, alcohol and IV drug use Physical Exam Vital Signs Vital Signs Date Time Temp Pulse Resp B/P (MAP) Pulse Ox O2 Delivery O2 Flow Rate FiO2 10/01/17 16:30 97.3 66 18 147/82 (103) 94 10/01/17 11:30 97.2 70 18 130/68 (88) 95 10/01/17 09:03 97.4 70 18 192/103 (132) 95 10/01/17 03:55 98.7 70 18 170/86 (114) 92 10/01/17 00:38 97.5 65 18 180/88 (118) 94 09/30/17 22:51 184/96 (125) 09/30/17 22:06 97.2 67 16 96 09/30/17 21:51 Physical Exam GENERAL: 87-year-old male currently confused resting in PACU bed in no acute distress on 4 L nasal cannula SKIN: Warm and dry. No rash. Multiple skin tears bilateral upper lower extremities HEAD: Atraumatic. Normocephalic. EYES: Pupils equal and round about 3 mm bilaterally. No scleral icterus. No injection or drainage. ENT: No nasal bleeding or discharge. Mucous membranes pink and moist. NECK: Trachea midline. No JVD. CARDIOVASCULAR: Paced. S1, S2 no S4.. Faint 1/6 murmur pansystolic RESPIRATORY: Clear to auscultation. Breath sounds equal bilaterally. GASTROINTESTINAL: Abdomen soft, non-tender, nondistended. A few reducible hernias noted. Hypoactive bowel sounds appreciated MUSCULOSKELETAL: Extremities without clubbing, cyanosis, or edema. No obvious deformities. NEUROLOGICAL: Awake and alert. No obvious cranial nerve deficits. Motor grossly within normal limits. Five out of 5 muscle strength in the arms and legs. Normal speech. Laboratory Laboratory Tests Test 10/01/17 00:00 10/01/17 07:30 Blood Urea Nitrogen 17 Creatinine 1.02 Random Glucose 82 Total Protein 6.7 Albumin 3.3 Calcium Level 8.2 Alkaline Phosphatase 102 Aspartate Amino Transf (AST/SGOT) 32 Alanine Aminotransferase (ALT/SGPT) 7 Total Bilirubin 0.7 Sodium Level 144 Potassium Level 4.2 Chloride Level 110 Carbon Dioxide Level 27.3 Anion Gap 7 Estimat Glomerular Filtration Rate 69 White Blood Count 10.7 Red Blood Count 4.19 Hemoglobin 13.1 Hematocrit 39.4 Mean Corpuscular Volume 93.9 Mean Corpuscular Hemoglobin 31.2 Mean Corpuscular Hemoglobin Concent 33.2 Red Cell Distribution Width 15.8 Platelet Count 167 Mean Platelet Volume 8.5 Neutrophils (%) (Auto) 59.2 Lymphocytes (%) (Auto) 24.2 Monocytes (%) (Auto) 10.4 Eosinophils (%) (Auto) 5.3 Basophils (%) (Auto) 0.9 Neutrophils # (Auto) 6.3 Lymphocytes # (Auto) 2.6 Monocytes # (Auto) 1.1 Eosinophils # (Auto) 0.6 Basophils # (Auto) 0.1 CBC Comment DIFF FINAL Differential Comment Result Diagram: 10/01/17 0730 10/01/17 0000 Imaging Last Impressions Lumbar Spine X-Ray 10/01/17 0000 Signed Impressions: Service Date/Time: Sunday, October 01, 2017 11:00 - CONCLUSION: 1. Redemonstration moderate L2 superior plate compression fracture with mild posterior buckling of the superior plate. 2. 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 3. Loops of moderately dilated air- filled colon in the upper midabdomen and left lower quadrant corresponding to redundant loops of distal colon on recent CT scan. Finding may reflect developing colonic ileus although degree of distention is not significantly changed. Efra Barajas MD Lumbar Spine CT 09/30/17 1552 Signed Impressions: Service Date/Time: Saturday, September 30, 2017 16:34 - CONCLUSION: 1. Acute fracture in the superior aspect of the L2 vertebral body involving the entire superior aspect of the L2 vertebral body with slight retropulsion of the posterior superior aspect of the L2 vertebral body causing minimal impress on the thecal sac. 2. Degenerative change as described above. There is severe stenosis at the L4-L5 level and moderate stenosis at the L3-L4 level. Toribio Callaway MD Septic Shock Reassessment Septic shock perfusion: reassessment completed Assessment and Plan Assessment and Plan Neuro/Psych: Anxiety disorder NOS Acute pain management L2 fracture Parkinson's disease Insomnia Glaucoma Acetaminophen 650 mg p.o. every 6 hours as needed fever Hydrocodone/acetaminophen 5/325 tablet every 4 hours. Pain 3-5 Hydrocodone/acetaminophen 7.5/325 1 tablet every 4 hours as needed pain 6 - 10 Morphine sulfate 2-4 mg IV q. 2 hours as needed pain 1 through 10 Hydromorphone [employer] ordered Alprazolam 0.25 mg p.o. 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 Briscoe Essential hypertension Hyperlipidemia Coronary artery disease status post stents Currently on amiodarone 200 mg p.o. daily/home medication On atorvastatin 40 mg at night for dyslipidemia On carvedilol 25 mg daily home medication for essential hypertension Holding omega-3 fish oil/cholecalciferol 1000/1001 tablet daily. Holding aspirin 81 mg daily. Resume when okay with surgery Resp: Nasal cannula to maintain saturations greater than equal to 92% Incentive spirometry while awake As needed albuterol aerosols every 2 hours as needed dyspnea GI: Constipation Hypoalbuminemia Advance diet per surgery currently in heart healthy diet Pantoprazole 40 mg daily for GI prophylaxis On polyethylene glycol 17 g daily at home for constipation. : Germain catheter if indicated for accurate I's and O's in a critically ill patient Endo: Maintain euglycemia Renal: Creatinine currently within normal limits Monitor urine output Accurate I's and O's Heme: CBC within normal limits Recheck in a.m. ID: Postoperative antibiotics per neurosurgery MSK: PT/OT evaluate and treat FEN: On furosemide 40 mg p.o. daily and potassium chloride 40 mg at night Currently on normal saline with 20 mEq of KCl at 100 cc Access -Utilize peripheral IV. Central and if indicated Right radial arterial line day #1 placed in OR Prophylaxis -GI -pantoprazole -DVT -SCD/pharmacological prophylaxis per neurosurgery Level 2 consult Code Status Full code Discussed Condition With Patient. Care plan discussed and all questions answered. Titi Fajardo MD October 01, 2017 21:16
[2017-10-01] MEDS ORDERED: *morphine SULFATE 4 MG/ML PERIprocedure ONLY ONE ×3 (21:19→21:52)
[2017-10-01] MEDS: NS + KCL 20 MEQ INJ 1,000 ML IV SCH (21:26)
--- NOTE | 2017-10-01 21:27 | RADRPT ---
EXAM DATE/TIME: 10/01/2017 17:34 [facility] COMPARISON: SPINE LUMBAR LTD (AP & LAT), October 01, 2017, 11:00. INDICATIONS : Lumbar fusion L1-L3. Kyphoplasty L2. MEDICAL HISTORY : None. SURGICAL HISTORY : None. ENCOUNTER: Subsequent ACUITY: 1 day PAIN SCORE: Non-responsive. LOCATION: Bilateral Paraspinal FINDINGS: A single lateral view of the lumbar spine was performed. There are transpedicular screws seen at 3 a djacent levels. There appears to be increased density within the middle vertebral body from accompany ing vertebroplasty. The study was labeled with the hardware at the L1-L3 levels. CONCLUSION: Surgical hardware at the L1-L3 levels with kyphoplasty at L2. Toribio Callaway MD on October 01, 2017 at 21:21 Board Certified Radiologist. This report was verified electronically.
[2017-10-01] MEDS ORDERED: RESP: ALBUTEROL 2.5 MG/3 ML NEB (PRN) NEB (21:30)
[2017-10-01] MEDS ORDERED: LABETALOL HCL 100 MG/20 ML VIAL IV PUSH PRN (22:00)
[2017-10-01] MEDS ORDERED: hydrALAZINE HCL 20 MG/ML VIAL IV PUSH PRN (22:00)
[2017-10-01] MEDS: PCA - TOTAL MG DILAUDID DELIVERED PER SHIFT SCH (22:00)
[2017-10-01 22:04] LABS: HEMATOCRIT 37.9 % (39.0-51.0); HEMOGLOBIN 12.5 GM/DL (13.0-17.0); MEAN CELL VOLUME 92.7 FL (80.0-100.0); MEAN CORPUSCULAR HEMOGLOBIN 30.6 PG (27.0-34.0); MEAN PLATELET VOLUME 8.1 FL (7.0-11.0); PLATELET COUNT 195 TH/MM3 (150-450); RED BLOOD COUNT 4.09 MIL/MM3 (4.50-5.90); RED CELL DISTRIBUTION WIDTH 15.6 % (11.6-17.2); WHITE BLOOD COUNT 15.4 TH/MM3 (4.0-11.0)
[2017-10-01 22:28] LABS: ALBUMIN 3.2 GM/DL (3.4-5.0); BICARBONATE 26.7 MEQ/L (21.0-32.0); CREATININE 1.14 MG/DL (0.60-1.30); DIRECT BILIRUBIN ADULT 0.3 MG/DL (0.0-0.2); MAGNESIUM 2.1 MG/DL (1.5-2.5); PHOSPHORUS 2.8 MG/DL (2.5-4.9)
[2017-10-01 22:30] LABS: INDIRECT BILIRUBIN 0.4 MG/DL (0.0-0.8); TOTAL BILIRUBIN ADULT 0.7 MG/DL (0.2-1.0); TOTAL PROTEIN 6.4 GM/DL (6.4-8.2)
[2017-10-02] MEDS: ceFAZolin 2 GM PREMIX 50 ML IV SCH ×3 (00:33→16:07)
[2017-10-02] MEDS: ACETAMINOPHEN/HYDROcodone 325 MG/5 MG TAB PO PRN ×2 (05:57→12:33)
[2017-10-02 06:22] LABS: AUTOMATED NEUTROPHIL # 10.1 TH/MM3 (1.8-7.7); HEMATOCRIT 33.7 % (39.0-51.0); HEMOGLOBIN 11.3 GM/DL (13.0-17.0); LYMPH % 9.5 % (9.0-44.0); LYMPHOCYTE # 1.1 TH/MM3 (1.0-4.8); MEAN CELL VOLUME 91.9 FL (80.0-100.0); MEAN CORPUSCULAR HEMOGLOBIN 30.8 PG (27.0-34.0); MEAN CORPUSCULAR HGB CONC 33.5 % (32.0-36.0); MEAN PLATELET VOLUME 7.9 FL (7.0-11.0); MONO % 4.9 % (0.0-8.0); MONOCYTE # 0.6 TH/MM3 (0-0.9); NEUT % 85.6 % (16.0-70.0); PLATELET COUNT 155 TH/MM3 (150-450); RED BLOOD COUNT 3.66 MIL/MM3 (4.50-5.90); RED CELL DISTRIBUTION WIDTH 15.8 % (11.6-17.2); WHITE BLOOD COUNT 11.8 TH/MM3 (4.0-11.0)
[2017-10-02] MEDS: NS + KCL 20 MEQ INJ 1,000 ML IV SCH ×3 (06:30→23:19)
[2017-10-02] MEDS: ALPRAZolam 0.25 MG TAB PO PRN (06:34)
[2017-10-02 06:53] LABS: BICARBONATE 25.3 MEQ/L (21.0-32.0); CREATININE 1.11 MG/DL (0.60-1.30)
[2017-10-02 08:00] VITALS: BP 100/52; PULSE 69; RESP 12; TEMP 97.6; O2SAT 97
[2017-10-02] MEDS: LEVOBUNOLOL HCL 0.5% OPHT SOLN 5 ML BTL EACH EYE SCH (08:21)
[2017-10-02] MEDS: CARVEDILOL 12.5 MG TAB PO SCH (08:22)
[2017-10-02] MEDS: SODIUM CHLORIDE 0.9% FLUSH 10 ML FLUSH IV FLUSH SCH ×2 (08:22→21:00)
[2017-10-02] MEDS: FUROSEMIDE 40 MG TAB PO SCH (08:23)
[2017-10-02] MEDS: CARBIDOPA/LEVODOPA 25 MG/100 MG TAB PO SCH ×3 (08:23→18:00)
[2017-10-02] MEDS: amLODIPine BESYLATE 5 MG TAB PO SCH ×2 (08:23→21:00)
[2017-10-02] MEDS: AMIODARONE 200 MG TAB PO SCH (08:23)
[2017-10-02] MEDS: PANTOPRAZOLE SODIUM 40 MG VIAL IVP SCH (08:28)
--- NOTE | 2017-10-02 10:45 | HHI.NSPN ---
(Katiuska Goff) Note Status Status: Progress Note (Katiuska Goff) Interval History Interval History status post ORIF L2 fracture, L1-L3 posterolateral fixation with transpedicular screws and rods, L2 Kyphoplasty 10/01/1710/02: remains in PACU, awake, appears comfortable. nursing reports hallucinating. vitals stable, mildly hypotensive. (Katiuska Goff) Labs, Micro, & Vital Signs Results Date Time Temp Pulse Resp B/P (MAP) Pulse Ox O2 Delivery O2 Flow Rate FiO2 10/02/17 08:00 97.6 69 12 100/52 (68) 97 Arterial Line 10/02/17 07:20 98.1 68 18 169/81 (110) 98 Nasal Cannula 2 10/02/17 07:00 69 13 173/81 (111) 97 Nasal Cannula 2 10/02/17 06:00 69 15 188/91 (123) 97 Nasal Cannula 2 204/84 (124) 10/02/17 05:00 71 12 142/74 (96) 97 Nasal Cannula 2 140/65 (90) 10/02/17 04:00 98.4 69 13 138/70 (92) 97 Nasal Cannula 2 152/0 (50) 10/02/17 03:00 69 12 130/64 (86) 97 Nasal Cannula 2 144/67 (92) 10/02/17 02:00 69 15 102/64 (77) 95 Nasal Cannula 2 140/76 (97) 10/02/17 01:00 69 15 96/51 (66) 96 Nasal Cannula 2 108/56 (73) 10/02/17 00:30 74 15 144/78 (100) 97 Nasal Cannula 2 140/69 (92) 10/02/17 00:00 97.7 69 15 144/78 (100) 96 Nasal Cannula 2 158/66 (96) 10/01/17 23:45 69 15 127/85 (99) 95 Nasal Cannula 2 124/76 (92) 10/01/17 23:15 69 21 159/70 (99) 94 Nasal Cannula 2 166/80 (108) 10/01/17 23:00 65 21 162/75 (104) 92 Nasal Cannula 2 131/63 (85) 10/01/17 22:45 69 15 143/77 (99) 96 Nasal Cannula 2 179/84 (115) 10/01/17 22:30 69 15 171/84 (113) 96 Nasal Cannula 4 188/84 (118) 10/01/17 22:15 69 15 184/95 (124) 95 Nasal Cannula 4 184/80 (114) 10/01/17 22:00 69 15 175/91 (119) 96 Nasal Cannula 4 186/83 (117) 10/01/17 22:00 16 10/01/17 21:45 69 15 186/96 (126) 95 Nasal Cannula 4 187/89 (121) 10/01/17 21:30 69 15 181/89 (119) 95 Nasal Cannula 4 190/89 (122) 10/01/17 21:15 69 15 168/89 (115) 95 Nasal Cannula 4 172/79 (110) 10/01/17 21:00 70 14 170/93 (118) 94 Nasal Cannula 4 162/72 (102) 10/01/17 20:53 97.7 70 14 155/65 (95) 95 Nasal Cannula 4 170/91 (117) 10/01/17 16:30 97.3 66 18 147/82 (103) 94 10/01/17 11:30 97.2 70 18 130/68 (88) 95 10/03/17 07:00 Intake Total 168 ml Balance 168 ml Constitutional Vital Signs Date Time Temp Pulse Resp B/P (MAP) Pulse Ox O2 Delivery O2 Flow Rate FiO2 10/02/17 08:00 97.6 69 12 100/52 (68) 97 Arterial Line 10/02/17 07:20 98.1 68 18 169/81 (110) 98 Nasal Cannula 2 10/02/17 07:00 69 13 173/81 (111) 97 Nasal Cannula 2 10/02/17 06:00 69 15 188/91 (123) 97 Nasal Cannula 2 204/84 (124) 10/02/17 05:00 71 12 142/74 (96) 97 Nasal Cannula 2 140/65 (90) 10/02/17 04:00 98.4 69 13 138/70 (92) 97 Nasal Cannula 2 152/0 (50) 10/02/17 03:00 69 12 130/64 (86) 97 Nasal Cannula 2 144/67 (92) 10/02/17 02:00 69 15 102/64 (77) 95 Nasal Cannula 2 140/76 (97) 10/02/17 01:00 69 15 96/51 (66) 96 Nasal Cannula 2 108/56 (73) 10/02/17 00:30 74 15 144/78 (100) 97 Nasal Cannula 2 140/69 (92) 10/02/17 00:00 97.7 69 15 144/78 (100) 96 Nasal Cannula 2 158/66 (96) 10/01/17 23:45 69 15 127/85 (99) 95 Nasal Cannula 2 124/76 (92) 10/01/17 23:15 69 21 159/70 (99) 94 Nasal Cannula 2 166/80 (108) 10/01/17 23:00 65 21 162/75 (104) 92 Nasal Cannula 2 131/63 (85) 10/01/17 22:45 69 15 143/77 (99) 96 Nasal Cannula 2 179/84 (115) 10/01/17 22:30 69 15 171/84 (113) 96 Nasal Cannula 4 188/84 (118) 10/01/17 22:15 69 15 184/95 (124) 95 Nasal Cannula 4 184/80 (114) 10/01/17 22:00 69 15 175/91 (119) 96 Nasal Cannula 4 186/83 (117) 10/01/17 22:00 16 10/01/17 21:45 69 15 186/96 (126) 95 Nasal Cannula 4 187/89 (121) 10/01/17 21:30 69 15 181/89 (119) 95 Nasal Cannula 4 190/89 (122) 10/01/17 21:15 69 15 168/89 (115) 95 Nasal Cannula 4 172/79 (110) 10/01/17 21:00 70 14 170/93 (118) 94 Nasal Cannula 4 162/72 (102) 10/01/17 20:53 97.7 70 14 155/65 (95) 95 Nasal Cannula 4 170/91 (117) 10/01/17 16:30 97.3 66 18 147/82 (103) 94 10/01/17 11:30 97.2 70 18 130/68 (88) 95 10/03/17 07:00 Intake Total 168 ml Balance 168 ml (Katiuska Goff) Review of Systems ROS Limitations: Altered Mental Status (Katiuska Goff) Physical Exam Mr. Dieog elderly male, in no acute distress. Neuro: Awake, oriented to name only. confused speech and appears to be hallucinating. Cranial nerve: pupils equal, round and reactive to light. Facial motor appears symmetric at rest. Neck is soft and supple Motor: moving all four extremities grossly, exam limited due to clinical condition Plantars neutral bilaterally, no ankle clonus Skin: warm, dry, no cyanosis (Katiuska Goff) Medications Current Medications Current Medications Medications (Trade) Dose Ordered Sig/Noe Route PRN Reason Start Time Stop Time Status Last Admin Dose Admin Sodium Chloride (NS Flush) 2 ml UNSCH PRN IV FLUSH FLUSH AFTER USING IV ACCESS 09/30/17 20:00 Sodium Chloride (NS Flush) 2 ml BID IV FLUSH 09/30/17 21:00 10/02/17 08:22 Ondansetron HCl (Zofran Inj) 4 mg Q6H PRN IVP NAUSEA OR VOMITING 09/30/17 20:00 Naloxone HCl (Narcan Inj) 0.4 mg UNSCH PRN IV PUSH SEE LABEL COMMENTS 09/30/17 20:00 Magnesium Hydroxide (Milk Of Magnesia Liq) 30 ml Q12H PRN PO Mild constipation 09/30/17 20:00 Sennosides (Senokot) 17.2 mg Q12H PRN PO Moderate constipation 09/30/17 20:00 Bisacodyl (Dulcolax Supp) 10 mg DAILY PRN RECTAL SEVERE CONSITIPATION 09/30/17 20:00 Lactulose (Lactulose Liq) 30 ml DAILY PRN PO SEVERE CONSITIPATION 09/30/17 20:00 Morphine Sulfate (Morphine Inj) 2 mg Q3H PRN IV breakthrough pain/if NPO 09/30/17 23:00 10/01/17 02:50 Alprazolam (Xanax) 0.25 mg BID PRN PO ANXIETY 09/30/17 23:30 10/02/17 06:34 Amiodarone HCl (Cordarone) 200 mg DAILY PO 10/01/17 09:00 10/01/17 08:35 Amlodipine Besylate (Norvasc) 2.5 mg BID PO 09/30/17 23:30 10/01/17 21:00 Atorvastatin Calcium (Lipitor) 40 mg HS PO 10/01/17 21:00 Carvedilol (Coreg) 25 mg DAILY PO 10/01/17 09:00 10/01/17 08:34 Furosemide (Lasix) 40 mg DAILY PO 10/01/17 09:00 10/02/17 08:23 Levobunolol HCl (Betagan Liquifilm 0.5%) 2 drop DAILY EACH EYE 10/01/17 09:00 10/02/17 08:21 Potassium Chloride (KCl) 40 meq HS PO 09/30/17 23:30 10/01/17 02:50 Temazepam (Restoril) 15 mg HS PRN PO INSOMNIA 09/30/17 23:30 Carbidopa/Levodopa (Sinemet 25-100 Mg) 1.5 tab TID PO 10/01/17 09:00 10/02/17 08:23 Acetaminophen (Tylenol) 650 mg Q6H PRN PO headache/fever/pain1-2 10/01/17 14:45 Acetaminophen/ Hydrocodone Bitart ([place] 5-325 Mg) 1 tab Q4H PRN PO PAIN SCALE 3 TO 5 10/01/17 14:45 10/02/17 05:57 Acetaminophen/ Hydrocodone Bitart ([place] 7.5-325 Mg) 1 tab Q4H PRN PO PAIN SCALE 6 TO 10 10/01/17 14:45 Potassium Chloride/Sodium Chloride 1,000 ml @ 100 mls/hr Q10H IV 10/01/17 17:41 10/02/17 06:30 Cefazolin Sodium/ Dextrose 50 ml @ 100 mls/hr Q8H IV 10/02/17 01:00 10/02/17 17:29 10/02/17 08:28 Pantoprazole Sodium (Protonix Inj) 40 mg DAILY IVP 10/02/17 09:00 10/02/17 08:28 Morphine Sulfate (Morphine Inj) 2 mg Q2H PRN IV PUSH PAIN SCALE 1 TO 6 10/01/17 17:45 Morphine Sulfate (Morphine Inj) 4 mg Q2H PRN IV PUSH PAIN SCALE 7 TO 10 10/01/17 17:45 Acetaminophen (Tylenol) 650 mg Q4H PRN PO TEMPERATURE > 101.5 F 10/01/17 17:45 Naloxone HCl (Narcan Inj) 0.4 mg UNSCH PRN IV PUSH RESPIRATORY RATE LESS THAN 10 10/01/17 20:15 Diphenhydramine HCl (Benadryl Inj) 25 mg Q6H PRN IV PUSH ITCHING 10/01/17 20:15 Hydromorphone HCl (Dilaudid ENDOSCOPIC TECHNICIAN Inj) 6 mg UNSCH IV 10/01/17 20:15 10/01/17 21:48 ENDOSCOPIC TECHNICIAN Dosage Infused (Pha) 1 Q8HR .XX 10/01/17 22:00 [place]iscellaneous Information [place] [place] ALL NURSING DEPARTME... UNSCH PRN .XX SEE LABEL COMMENTS 10/01/17 20:50 10/02/17 20:49 Albuterol Sulfate (Albuterol Neb) 2.5 mg Q2HR NEB PRN NEB Dyspnea 10/01/17 21:30 Labetalol HCl (Trandate Inj) 10 mg Q1HR PRN IV PUSH SBP>170, DBP>90, HR>65 10/01/17 22:00 10/01/17 22:45 Hydralazine HCl (Apresoline Inj) 10 mg Q1HR PRN IV PUSH SBP>160, DBP>90 10/01/17 22:00 (Katiuska oGff) Medical Decision Making MDM Remarks 87 y/o male with acute unstable L2 fracture, status post ORIF L2 fracture, L1- L3 posterolateral fixation with transpedicular screws and rods, L2 Kyphoplasty postoperative confusion, hallucination (Katiuska Goff) Plan Plan Remarks hold ENDOSCOPIC TECHNICIAN, cont prn pain medications IS every hour SCDs and TEDs for dvt prophylaxis GI prophylaxis PT, TLSO when out of bed awaiting transfer to [facility] (Katiuska Goff) Attending Statement The exam, history, and the medical decision-making described in the above note were completed with the assistance of the mid-level provider. I reviewed and agree with the findings presented. I attest that I had a [id number] encounter with the patient on the same day, and personally performed and documented my assessment and findings in the medical record. (Milo Shafer MD) Katiuska Goff October 02, 2017 10:45 Milo Shafer MD October 05, 2017 13:33
--- NOTE | 2017-10-02 11:31 | HHI.CCPN ---
Subjective Remarks/Hospital Course Hospital Course: This is a 87-year-old male. The admission 09/30/2017. Date of consultation 10/01/2017. Patient is has been complaining of low back pain unable to move. 2 weeks duration. He states 2 weeks ago he misstepped and twisted his back almost falling. He states the pain has been constant, sharp stabbing, to his lower back, 03/05 CT lumbar spine 09/30 revealed acute fracture in the superior aspect of the L2 vertebral body involving the entire superior aspect of the L2 vertebral body with slight retropulsion of the posterior superior aspect of the L2 vertebral body causing minimal impress on the thecal sac. Degenerative change as described above. There is severe stenosis at the L4-L5 level and moderate stenosis at the L3-L4 level. Neurosurgery was consulted/Dr. Shafer Today the patient underwent L1 through 3 laminectomy with L2 kyphoplasty. Official postop note has not been dictated.. 1700 cc crystalloid. EBL 1 50 cc. 4 cc urine output. Currently on 4 L with a paced rhythm on telemetry.. Somewhat confused but recently extubated. Hemodynamically stable. Subjective: 10/02: continues to remain stable. somewhat delirious this morning, holding SPEECH THERAPY ASSISTANT. some visual hallucinations. hgb stable. bp stable. urine output adequate. pain adequately controlled. Objective Vital Signs Date Time Temp Pulse Resp B/P (MAP) Pulse Ox O2 Delivery O2 Flow Rate FiO2 10/02/17 08:00 97.6 69 12 100/52 (68) 97 Arterial Line 10/02/17 07:20 Nasal Cannula 2 Intake and Output 10/02/17 10/02/17 10/03/17 08:00 16:00 00:00 Intake Total 1213 ml Output Total 400 ml Balance 813 ml Result Diagram: 10/02/17 0528 10/02/17 0528 Imaging Last Impressions Lumbar Spine X-Ray 10/01/17 0000 Signed Impressions: Service Date/Time: Sunday, October 01, 2017 11:00 - CONCLUSION: 1. Redemonstration moderate L2 superior plate compression fracture with mild posterior buckling of the superior plate. 2. 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 3. Loops of moderately dilated air- filled colon in the upper midabdomen and left lower quadrant corresponding to redundant loops of distal colon on recent CT scan. Finding may reflect developing colonic ileus although degree of distention is not significantly changed. Efra Barajas MD Lumbar Spine CT 09/30/17 [id number] Signed Impressions: Service Date/Time: Saturday, September 30, 2017 16:34 - CONCLUSION: 1. Acute fracture in the superior aspect of the L2 vertebral body involving the entire superior aspect of the L2 vertebral body with slight retropulsion of the posterior superior aspect of the L2 vertebral body causing minimal impress on the thecal sac. 2. Degenerative change as described above. There is severe stenosis at the L4-L5 level and moderate stenosis at the L3-L4 level. Toribio Callaway MD Objective Remarks GENERAL: 87-year-old male currently confused resting in PACU bed in no acute distress on 2 L nasal cannula SKIN: Warm and dry. No rash. Multiple skin tears bilateral upper lower extremities HEAD: Atraumatic. Normocephalic. EYES: Pupils equal and round about 3 mm bilaterally. No scleral icterus. No injection or drainage. ENT: No nasal bleeding or discharge. Mucous membranes pink and moist. NECK: Trachea midline. No JVD. CARDIOVASCULAR: Paced. HR in the 60s. RESPIRATORY: equal chest rise. unlabored. no accessory muscle use. GASTROINTESTINAL: Abdomen soft, non-tender, nondistended. no guarding. MUSCULOSKELETAL: Extremities without clubbing, cyanosis, or edema. No obvious deformities. NEUROLOGICAL: Awake and alert. No obvious cranial nerve deficits. Motor grossly within normal limits. Five out of 5 muscle strength in the arms and legs. Normal speech. follows commands. A/P Assessment and Plan Assessment: 87yM s/p lumbar laminectomy now POD 1 and clinically improving. will discuss with neurosurgery: from my standpoint, can leave ICU, but given age and comorbidities, it would not be unreasonable to monitor in ICU for another 24h. Neuro/Psych: Anxiety disorder NOS Acute pain management L2 fracture Parkinson's disease Insomnia Glaucoma Acetaminophen 650 mg p.o. every 6 hours as needed fever Hydrocodone/acetaminophen 5/325 tablet every 4 hours. Pain 3-5 Hydrocodone/acetaminophen 7.5/325 1 tablet every 4 hours as needed pain 6 - 10 Morphine sulfate 2-4 mg IV q. 2 hours as needed pain 1 through 10 Hydromorphone SPEECH THERAPY ASSISTANT ordered Alprazolam 0.25 mg p.o. 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 Briscoe Essential hypertension Hyperlipidemia Coronary artery disease status post stents Currently on amiodarone 200 mg p.o. daily/home medication On atorvastatin 40 mg at night for dyslipidemia On carvedilol 25 mg daily home medication for essential hypertension Holding omega-3 fish oil/cholecalciferol 1000/1001 tablet daily. Holding aspirin 81 mg daily. Resume when okay with surgery Resp: Nasal cannula to maintain saturations greater than equal to 92% Incentive spirometry while awake As needed albuterol aerosols every 2 hours as needed dyspnea GI: Constipation Hypoalbuminemia Advance diet per surgery currently in heart healthy diet Pantoprazole 40 mg daily for GI prophylaxis On polyethylene glycol 17 g daily at home for constipation. : Germain catheter if indicated for accurate I's and O's in a critically ill patient Endo: Maintain euglycemia Renal: Creatinine currently within normal limits Monitor urine output Accurate I's and O's Heme: CBC within normal limits Recheck in a.m. ID: Postoperative antibiotics per neurosurgery MSK: PT/OT evaluate and treat FEN: On furosemide 40 mg p.o. daily and potassium chloride 40 mg at night Currently on normal saline with 20 mEq of KCl at 100 cc Access -Utilize peripheral IV. Right radial arterial line day #1 placed in OR: d/c today. Prophylaxis -GI -pantoprazole -DVT -SCD/pharmacological prophylaxis per neurosurgery Bubba Munoz MD October 02, 2017 11:31
--- NOTE | 2017-10-02 11:58 | RADRPT ---
EXAM DATE/TIME: 10/02/2017 09:50 [facility] COMPARISON: No previous studies available for comparison. INDICATIONS : Pain. MEDICAL HISTORY : Hypercholesterolemia. SURGICAL HISTORY : Cholecystectomy. CABG. pacemaker/ defibrillator, valve replacement, stents x 6, bilateral knees ENCOUNTER: Initial ACUITY: 2 days PAIN SCORE: Non-responsive. LOCATION: Left hip and pelvis FINDINGS: Examination of the hip and pelvis demonstrates a total left hip arthroplasty in place. Arthroplasty c omponents appear well positioned and in gross anatomic alignment. There is moderate to severe joint s pace narrowing and osteophyte formation in the right hip. Osseous structures are otherwise intact wit hout acute bony fracture. Extensive vascular calcifications are noted. Soft tissues are otherwise unr emarkable. CONCLUSION: 1. Left hip arthroplasty in place. 2. 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 3. No acute fracture. Efra Barajas MD on October 02, 2017 at 11:53 Board Certified Radiologist. This report was verified electronically.
[2017-10-02 12:22] VITALS: BP 175/90; PULSE 69; RESP 15; TEMP 97.6; O2SAT 97
[2017-10-02] MEDS: PCA - TOTAL MG DILAUDID DELIVERED PER SHIFT SCH ×2 (14:00→22:00)
--- NOTE | 2017-10-02 15:50 | MB ---
cc: Pepe Rebolledo MD, PhD DATE: 10/02/2017 REASON FOR CONSULTATION: Parkinson's disease. HISTORY OF PRESENT ILLNESS: Mr. Diego is a very nice 87-year-old man who has Parkinson's disease. He takes Sinemet 25/100, 1-1/2 tablets t.i.d. He has been having significant difficulty walking, having to use a walker and shuffling. He apparently fell, resulting in a lumbar spine fracture, which was unstable and is status post surgery for that. NEUROLOGIC: He is alert. He is oriented. His speech is very hypophonic. He follows commands very slowly. Cranial nerves: He has got a masked face. The extraocular movements are intact. Motor: He is very bradykinetic with cogwheel rigidity in the upper extremities. He has 4/5 strength in both upper and lower extremities. IMPRESSION: Severe Parkinson's disease. RECOMMENDATION: Continue Sinemet 25/100, 1-1/2 t.i.d. When the patient is able to take p.o., would recommend starting Requip initially at a dose of 0.25 mg t.i.d., which could gradually be titrated up over several weeks. Thank you for asking us to see this nice patient in consultation. I will continue to follow the patient. Pepe Rebolledo MD, PhD NAOMI/RANI , 03:28 PM , 03:50 PM
--- NOTE | 2017-10-02 16:59 | HHI.PR ---
Subjective Remarks Consulted by CCM for med mgt and transfer of care. F/U encephalopathy Objective Vitals Vital Signs Date Time Temp Pulse Resp B/P (MAP) Pulse Ox O2 Delivery O2 Flow Rate FiO2 10/02/17 15:20 97.6 70 18 116/58 (77) 97 Nasal Cannula 2 10/02/17 14:00 18 10/02/17 12:22 97.6 69 15 175/90 (118) 97 10/02/17 08:00 97.6 69 12 100/52 (68) 97 Arterial Line 10/02/17 07:20 98.1 68 18 169/81 (110) 98 Nasal Cannula 2 10/02/17 07:00 69 13 173/81 (111) 97 Nasal Cannula 2 10/02/17 06:00 69 15 188/91 (123) 97 Nasal Cannula 2 204/84 (124) 10/02/17 05:00 71 12 142/74 (96) 97 Nasal Cannula 2 140/65 (90) 10/02/17 04:00 98.4 69 13 138/70 (92) 97 Nasal Cannula 2 152/0 (50) 10/02/17 03:00 69 12 130/64 (86) 97 Nasal Cannula 2 144/67 (92) 10/02/17 02:00 69 15 102/64 (77) 95 Nasal Cannula 2 140/76 (97) 10/02/17 01:00 69 15 96/51 (66) 96 Nasal Cannula 2 108/56 (73) 10/02/17 00:30 74 15 144/78 (100) 97 Nasal Cannula 2 140/69 (92) 10/02/17 00:00 97.7 69 15 144/78 (100) 96 Nasal Cannula 2 158/66 (96) 10/01/17 23:45 69 15 127/85 (99) 95 Nasal Cannula 2 124/76 (92) 10/01/17 23:15 69 21 159/70 (99) 94 Nasal Cannula 2 166/80 (108) 10/01/17 23:00 65 21 162/75 (104) 92 Nasal Cannula 2 131/63 (85) 10/01/17 22:45 69 15 143/77 (99) 96 Nasal Cannula 2 179/84 (115) 10/01/17 22:30 69 15 171/84 (113) 96 Nasal Cannula 4 188/84 (118) 10/01/17 22:15 69 15 184/95 (124) 95 Nasal Cannula 4 184/80 (114) 10/01/17 22:00 69 15 175/91 (119) 96 Nasal Cannula 4 186/83 (117) 10/01/17 22:00 16 10/01/17 21:45 69 15 186/96 (126) 95 Nasal Cannula 4 187/89 (121) 10/01/17 21:30 69 15 181/89 (119) 95 Nasal Cannula 4 190/89 (122) 10/01/17 21:15 69 15 168/89 (115) 95 Nasal Cannula 4 172/79 (110) 10/01/17 21:00 70 14 170/93 (118) 94 Nasal Cannula 4 162/72 (102) 10/01/17 20:53 97.7 70 14 155/65 (95) 95 Nasal Cannula 4 170/91 (117) I/O 10/01/17 10/01/17 10/01/17 10/02/17 10/02/17 10/02/17 07:00 15:00 23:00 07:00 15:00 23:00 Intake Total 480 ml 1750 ml 1045 ml 268 ml Output Total 250 ml 600 ml 400 ml Balance 230 ml 1150 ml 645 ml 268 ml Intake Oral 480 ml 50 ml 100 ml 0 ml IV Total 945 ml 268 ml Other 1700 ml Output Urine Total 250 ml 450 ml 400 ml Stool Total 0 ml Estimated Blood Loss 150 ml # Voids 1 4 # Bowel Movements 0 0 Result Diagram: 10/02/17 0528 10/02/17 0528 Imaging Last Impressions Hip and Pelvis X-Ray 10/02/17 0000 Signed Impressions: Service Date/Time: Monday, October 02, 2017 09:50 - CONCLUSION: 1. Left hip arthroplasty in place. 2. 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 3. No acute fracture. Efra Barajas MD Lumbar Spine X-Ray 10/01/17 0000 Signed Impressions: Service Date/Time: Sunday, October 01, 2017 17:34 - CONCLUSION: Surgical hardware at the L1-L3 levels with kyphoplasty at L2. Toribio Callaway MD Lumbar Spine CT 09/30/17 1552 Signed Impressions: Service Date/Time: Saturday, September 30, 2017 16:34 - CONCLUSION: 1. Acute fracture in the superior aspect of the L2 vertebral body involving the entire superior aspect of the L2 vertebral body with slight retropulsion of the posterior superior aspect of the L2 vertebral body causing minimal impress on the thecal sac. 2. Degenerative change as described above. There is severe stenosis at the L4-L5 level and moderate stenosis at the L3-L4 level. Toribio Callaway MD Objective Remarks GENERAL: 87-year-old male currently confused resting in PACU bed in no acute distress on 2 L nasal cannula SKIN: Warm and dry. No rash. Multiple skin tears bilateral upper lower extremities HEAD: Atraumatic. Normocephalic. EYES: Pupils equal and round about 3 mm bilaterally. No scleral icterus. No injection or drainage. ENT: No nasal bleeding or discharge. Mucous membranes pink and moist. NECK: Trachea midline. No JVD. CARDIOVASCULAR: Paced. HR in the 60s. RESPIRATORY: equal chest rise. unlabored. no accessory muscle use. GASTROINTESTINAL: Abdomen soft, non-tender, nondistended. no guarding. MUSCULOSKELETAL: Extremities without clubbing, cyanosis, or edema. No obvious deformities. NEUROLOGICAL: Awake and alert. No obvious cranial nerve deficits. Motor grossly within normal limits. Five out of 5 muscle strength in the arms and legs. Normal speech. follows commands. Procedures L1 through 3 laminectomy with L2 kyphoplasty A/P Problem List: (1) L2 vertebral fracture ICD Code: S32.029A - Unspecified fracture of second lumbar vertebra, initial encounter for closed fracture Status: Acute (2) CHF (congestive heart failure) ICD Code: I50.9 - Heart failure, unspecified Status: Chronic (3) Hyperlipemia ICD Code: E78.5 - Hyperlipidemia, unspecified Status: Chronic (4) Parkinsons disease ICD Code: G20 - Parkinson's disease Status: Chronic (5) Hypertension ICD Code: I10 - Essential (primary) hypertension Status: Chronic Assessment and Plan 87yM s/p lumbar laminectomy Neuro/Psych: Toxic encephalopathy Anxiety disorder NOS Acute pain management L2 fracture Parkinson's disease Insomnia Glaucoma Acetaminophen 650 mg p.o. every 6 hours as needed fever Hydrocodone/acetaminophen 5/325 tablet every 4 hours. Pain 3-5 Hydrocodone/acetaminophen 7.5/325 1 tablet every 4 hours as needed pain 6 - 10 Morphine sulfate 2-4 mg IV q. 2 hours as needed pain 1 through 10 Hydromorphone SENIOR GRADUATE ADVISOR dc Alprazolam 0.25 mg p.o. twice daily for anxiety/home medication Continue carbidopa/levodopa 25/10 1.5 tablets 3 times daily Temazepam 15 mg at night as needed insomnia Levobunolol 0.5 %2 drops each eye daily Sitter. 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 Briscoe Essential hypertension Hyperlipidemia Coronary artery disease status post stents Currently on amiodarone 200 mg p.o. daily/home medication On atorvastatin 40 mg at night for dyslipidemia On carvedilol 25 mg daily home medication for essential hypertension Holding omega-3 fish oil/cholecalciferol 1000/1001 tablet daily. Holding aspirin 81 mg daily. Resume when okay with surgery Resp: Nasal cannula to maintain saturations greater than equal to 92% Incentive spirometry while awake As needed albuterol aerosols every 2 hours as needed dyspnea GI: Constipation Hypoalbuminemia NPO pending ST eval Pantoprazole 40 mg daily for GI prophylaxis On polyethylene glycol 17 g daily at home for constipation. : Germain catheter if indicated for accurate I's and O's in a critically ill patient Endo: Maintain euglycemia Renal: Creatinine currently within normal limits Monitor urine output Accurate I's and O's Heme: CBC within normal limits Recheck in a.m. ID: Postoperative antibiotics per neurosurgery MSK: PT/OT evaluate and treat FEN: On furosemide 40 mg p.o. daily and potassium chloride 40 mg at night Currently on normal saline with 20 mEq of KCl at 100 cc Access -Utilize peripheral IV. Prophylaxis -GI -pantoprazole -DVT -SCD/pharmacological prophylaxis per neurosurgery Discharge Planning rehab Problem Qualifiers (1) L2 vertebral fracture: Qualified Codes: S32.029A - Unspecified fracture of second lumbar vertebra, initial encounter for closed fracture (2) CHF (congestive heart failure): Qualified Codes: I50.32 - Chronic diastolic (congestive) heart failure (3) Hyperlipemia: Qualified Codes: E78.2 - Mixed hyperlipidemia (4) Hypertension: Qualified Codes: I10 - Essential (primary) hypertension Chalino Shepard MD October 02, 2017 16:59
[2017-10-02 18:00] VITALS: BP 131/63; PULSE 70; RESP 20; TEMP 97.9; O2SAT 96
[2017-10-02 20:00] VITALS: BP 134/66; PULSE 70; RESP 18; TEMP 97.9; O2SAT 96
[2017-10-02] MEDS: ATORVASTATIN 40 MG TAB PO SCH (21:00)
[2017-10-02] MEDS: POTASSIUM CHLORIDE 10 MEQ CONTROLLED RELEASE TAB PO SCH (21:00)
[2017-10-02] MEDS ORDERED: ONDANSETRON ODT 4 MG TAB SL PRN (22:45)
[2017-10-03] VITALS (8 sets, daily range): BP systolic 109–200; BP diastolic 72–94; PULSE 63–80; RESP 18–20; TEMP 97.7–98.2; O2SAT 93–98
[2017-10-03 05:28] LABS: BASOPHIL % 0.1 % (0.0-2.0); EOSINOPHIL % 0.1 % (0.0-4.0); HEMATOCRIT 29.4 % (39.0-51.0); HEMOGLOBIN 9.9 GM/DL (13.0-17.0); LYMPH % 15.9 % (9.0-44.0); MEAN CELL VOLUME 93.4 FL (80.0-100.0); MEAN CORPUSCULAR HEMOGLOBIN 31.4 PG (27.0-34.0); MEAN CORPUSCULAR HGB CONC 33.7 % (32.0-36.0); MEAN PLATELET VOLUME 8.1 FL (7.0-11.0); MONO % 11.6 % (0.0-8.0); MONOCYTE # 1.4 TH/MM3 (0-0.9); NEUT % 72.3 % (16.0-70.0); PLATELET COUNT 130 TH/MM3 (150-450); RED BLOOD COUNT 3.15 MIL/MM3 (4.50-5.90); RED CELL DISTRIBUTION WIDTH 15.9 % (11.6-17.2); WHITE BLOOD COUNT 12.4 TH/MM3 (4.0-11.0)
[2017-10-03 06:01] LABS: ALBUMIN 2.5 GM/DL (3.4-5.0); BICARBONATE 22.6 MEQ/L (21.0-32.0); CALCIUM 7.4 MG/DL (8.5-10.1); CALCIUM-PROTEIN CORRECTED 8.6 MG/DL (8.5-10.1); CREATININE 1.15 MG/DL (0.60-1.30); TOTAL BILIRUBIN ADULT 0.6 MG/DL (0.2-1.0)
--- NOTE | 2017-10-03 07:54 | HHI.PR ---
Subjective Remarks Consulted by [facility] for med mgt and transfer of care. F/U encephalopathy. Today he is awake and oriented following simple commands. Calm and cooperative. Hyperkalemia on potassium supplementation. Telemetry shows no T changes. Restraints required overnight currently off restraints Objective Vitals Vital Signs Date Time Temp Pulse Resp B/P (MAP) Pulse Ox O2 Delivery O2 Flow Rate FiO2 10/03/17 04:00 98.1 63 18 169/80 (109) 95 10/03/17 00:00 97.7 70 18 128/83 (98) 95 10/02/17 22:00 16 10/02/17 20:00 97.9 70 18 134/66 (88) 96 10/02/17 18:00 97.9 70 20 131/63 (85) 96 10/02/17 17:00 70 18 101/55 (70) 100 Nasal Cannula 2 10/02/17 16:00 70 18 98/55 (69) 99 Nasal Cannula 2 10/02/17 15:20 97.6 70 18 116/58 (77) 97 Nasal Cannula 2 10/02/17 14:00 18 10/02/17 12:22 97.6 69 15 175/90 (118) 97 10/02/17 08:00 97.6 69 12 100/52 (68) 97 Arterial Line I/O 10/02/17 10/02/17 10/02/17 10/03/17 10/03/17 10/03/17 06:59 14:59 22:59 06:59 14:59 22:59 Intake Total 1045 ml 268 ml 50 ml Output Total 400 ml 350 ml 550 ml Balance 645 ml 268 ml -300 ml -550 ml Intake Oral 100 ml 0 ml 50 ml IV Total 945 ml 268 ml Output Urine Total 400 ml 350 ml 550 ml Stool Total 0 ml Result Diagram: 10/03/17 0430 10/03/17 0430 Imaging Last Impressions Hip and Pelvis X-Ray 10/02/17 0000 Signed Impressions: Service Date/Time: Monday, October 02, 2017 09:50 - CONCLUSION: 1. Left hip arthroplasty in place. 2. 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 3. No acute fracture. Efra Barajas MD Lumbar Spine X-Ray 10/01/17 0000 Signed Impressions: Service Date/Time: Sunday, October 01, 2017 17:34 - CONCLUSION: Surgical hardware at the L1-L3 levels with kyphoplasty at L2. Toribio Callaway MD Lumbar Spine CT 09/30/17 155 Signed Impressions: Service Date/Time: Saturday, September 30, 2017 16:34 - CONCLUSION: 1. Acute fracture in the superior aspect of the L2 vertebral body involving the entire superior aspect of the L2 vertebral body with slight retropulsion of the posterior superior aspect of the L2 vertebral body causing minimal impress on the thecal sac. 2. Degenerative change as described above. There is severe stenosis at the L4-L5 level and moderate stenosis at the L3-L4 level. Toribio Callaway MD Objective Remarks GENERAL: 87-year-old male SKIN: Warm and dry. No rash. Multiple skin tears bilateral upper lower extremities CARDIOVASCULAR: Paced. HR in the 60s. RESPIRATORY: equal chest rise. unlabored. no accessory muscle use. GASTROINTESTINAL: Abdomen soft, non-tender, nondistended. no guarding. MUSCULOSKELETAL: Extremities without clubbing, cyanosis, or edema. No obvious deformities. NEUROLOGICAL: Awake and alert. No obvious cranial nerve deficits. Motor grossly within normal limits. Five out of 5 muscle strength in the arms and legs. Normal speech. follows commands. Procedures L1 through 3 laminectomy with L2 kyphoplasty A/P Problem List: (1) L2 vertebral fracture ICD Code: S32.029A - Unspecified fracture of second lumbar vertebra, initial encounter for closed fracture Status: Acute (2) CHF (congestive heart failure) ICD Code: I50.9 - Heart failure, unspecified Status: Chronic (3) Hyperlipemia ICD Code: E78.5 - Hyperlipidemia, unspecified Status: Chronic (4) Parkinsons disease ICD Code: G20 - Parkinson's disease Status: Chronic (5) Hypertension ICD Code: I10 - Essential (primary) hypertension Status: Chronic Assessment and Plan 87yM s/p lumbar laminectomy Neuro/Psych: Toxic encephalopathy. Resolving Anxiety disorder NOS Acute pain management L2 fracture Parkinson's disease Insomnia Glaucoma Acetaminophen 650 mg p.o. every 6 hours as needed fever Hydrocodone/acetaminophen 5/325 tablet every 4 hours. Pain 3-5 Hydrocodone/acetaminophen 7.5/325 1 tablet every 4 hours as needed pain 6 - 10 Morphine sulfate 2-4 mg IV q. 2 hours as needed pain 1 through 10 if NPO Hydromorphone MEDICAL DIAGNOSTIC RADIOGRAPHER dc While n.p.o., IV Ofirmev alprazolam 0.25 mg p.o. twice daily for anxiety/home medication Continue carbidopa/levodopa 25/10 1.5 tablets 3 times daily Temazepam 15 mg at night as needed insomnia Levobunolol 0.5 %2 drops each eye daily Sitter. 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 Briscoe Essential hypertension Hyperlipidemia Coronary artery disease status post stents Currently on amiodarone 200 mg p.o. daily/home medication On atorvastatin 40 mg at night for dyslipidemia On carvedilol 25 mg daily home medication for essential hypertension Holding omega-3 fish oil/cholecalciferol 1000/1001 tablet daily. Holding aspirin 81 mg daily. Resume when okay with surgery Resp: Nasal cannula to maintain saturations greater than equal to 92% Incentive spirometry while awake As needed albuterol aerosols every 2 hours as needed dyspnea GI: Constipation Hypoalbuminemia NPO pending ST eval Pantoprazole 40 mg daily for GI prophylaxis On polyethylene glycol 17 g daily at home for constipation. : Germain catheter if indicated for accurate I's and O's in a critically ill patient Endo: Maintain euglycemia Renal: Hyperkalemia, Hypernatremia and hyperchloremia Dc Kcl and switch to IV Lasix and 1/2 NS. Tele and EKG Creatinine currently within normal limits Monitor urine output Accurate I's and O's Heme: CBC within normal limits Recheck in a.m. ID: Postoperative antibiotics per neurosurgery MSK: PT/OT evaluate and treat FEN: NPO pending ct IV Access -Utilize peripheral IV. Prophylaxis -GI -pantoprazole -DVT -SCD/pharmacological prophylaxis per neurosurgery Discharge Planning rehab Problem Qualifiers (1) L2 vertebral fracture: Qualified Codes: S32.029A - Unspecified fracture of second lumbar vertebra, initial encounter for closed fracture (2) CHF (congestive heart failure): Qualified Codes: I50.32 - Chronic diastolic (congestive) heart failure (3) Hyperlipemia: Qualified Codes: E78.2 - Mixed hyperlipidemia (4) Hypertension: Qualified Codes: I10 - Essential (primary) hypertension Chalino Shepard MD October 03, 2017 07:53
[2017-10-03] MEDS ORDERED: DEXTROSE 50% IN WATER 50 ML VIAL(D50) IV PUSH PRN (08:00)
[2017-10-03] MEDS ORDERED: GLUCAGON 1 MG/ML VIAL OTHER PRN (08:00)
[2017-10-03] MEDS: CARBIDOPA/LEVODOPA 25 MG/100 MG TAB PO SCH ×3 (09:00→21:19)
[2017-10-03] MEDS: SODIUM CHLORIDE 0.9% FLUSH 10 ML FLUSH IV FLUSH SCH ×2 (09:00→21:00)
[2017-10-03] MEDS: CARVEDILOL 12.5 MG TAB PO SCH (09:00)
[2017-10-03] MEDS: amLODIPine BESYLATE 5 MG TAB PO SCH ×2 (09:00→21:20)
[2017-10-03] MEDS: FUROSEMIDE 40 MG/4 ML VIAL IV PUSH SCH ×2 (09:00→09:32)
[2017-10-03] MEDS: AMIODARONE 200 MG TAB PO SCH (09:00)
[2017-10-03] MEDS: PANTOPRAZOLE SODIUM 40 MG VIAL IVP SCH (09:35)
[2017-10-03] MEDS: ATORVASTATIN 40 MG TAB PO SCH (10:13)
[2017-10-03] MEDS ORDERED: ENALAPRILAT 1.25 MG/ML VIAL IV PUSH PRN (10:30)
[2017-10-03] MEDS: SODIUM CHLOR 0.45% 1000 ML INJ 1,000 ML IV SCH ×2 (10:56→18:00)
[2017-10-03] MEDS ORDERED: cloNIDine HCL 0.1 MG/24 HR PATCH TD SCH (12:00)
[2017-10-03] MEDS: LEVOBUNOLOL HCL 0.5% OPHT SOLN 5 ML BTL EACH EYE SCH (12:27)
[2017-10-03] MEDS: ACETAMINOPHEN 1000 MG/100 ML 100 ML IV SCH ×2 (13:45→20:00)
--- NOTE | 2017-10-03 13:45 | HHI.NSPN ---
(Katiuska Goff) Note Status Status: Progress Note (Katiuska Goff) Interval History Interval History status post ORIF L2 fracture, L1-L3 posterolateral fixation with transpedicular screws and rods, L2 Kyphoplasty 10/01/1710/02: remains in PACU, awake, appears comfortable. nursing reports hallucinating. vitals stable, mildly hypotensive. 10/03: remains confused, hallucinating, but still oriented to name. 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 (Katiuska Goff) Labs, Micro, & Vital Signs Results Date Time Temp Pulse Resp B/P (MAP) Pulse Ox O2 Delivery O2 Flow Rate FiO2 10/03/17 12:04 98.2 70 20 109/72 (84) 98 10/03/17 09:23 93 Nasal Cannula 3.00 10/03/17 08:00 97.8 70 20 200/94 (129) 94 10/03/17 04:00 98.1 63 18 169/80 (109) 95 10/03/17 00:00 97.7 70 18 128/83 (98) 95 10/02/17 22:00 16 10/02/17 20:00 97.9 70 18 134/66 (88) 96 10/02/17 18:00 97.9 70 20 131/63 (85) 96 10/02/17 17:00 70 18 101/55 (70) 100 Nasal Cannula 2 10/02/17 16:00 70 18 98/55 (69) 99 Nasal Cannula 2 10/02/17 15:20 97.6 70 18 116/58 (77) 97 Nasal Cannula 2 10/02/17 14:00 18 Constitutional Vital Signs Date Time Temp Pulse Resp B/P (MAP) Pulse Ox O2 Delivery O2 Flow Rate FiO2 10/03/17 12:04 98.2 70 20 109/72 (84) 98 10/03/17 09:23 93 Nasal Cannula 3.00 10/03/17 08:00 97.8 70 20 200/94 (129) 94 10/03/17 04:00 98.1 63 18 169/80 (109) 95 10/03/17 00:00 97.7 70 18 128/83 (98) 95 10/02/17 22:00 16 10/02/17 20:00 97.9 70 18 134/66 (88) 96 10/02/17 18:00 97.9 70 20 131/63 (85) 96 10/02/17 17:00 70 18 101/55 (70) 100 Nasal Cannula 2 10/02/17 16:00 70 18 98/55 (69) 99 Nasal Cannula 2 10/02/17 15:20 97.6 70 18 116/58 (77) 97 Nasal Cannula 2 10/02/17 14:00 18 (Katiuska Goff) Review of Systems ROS Limitations: Clinical Condition (Katiuska Goff) Physical Exam Mr. Diego elderly male, in no acute distress. Neuro: Awake, oriented to name only. confused speech and appears to be hallucinating. Cranial nerve: pupils equal, round and reactive to light. Facial motor appears symmetric at rest. Neck is soft and supple Motor: moving all four extremities grossly, exam limited due to clinical condition Plantars neutral bilaterally, no ankle clonus Skin: warm, dry, no cyanosis (Katiuska Goff) Medications Current Medications Current Medications Medications (Trade) Dose Ordered Sig/Noe Route PRN Reason Start Time Stop Time Status Last Admin Dose Admin Sodium Chloride (NS Flush) 2 ml UNSCH PRN IV FLUSH FLUSH AFTER USING IV ACCESS 09/30/17 20:00 Sodium Chloride (NS Flush) 2 ml BID IV FLUSH 09/30/17 21:00 10/02/17 08:22 Naloxone HCl (Narcan Inj) 0.4 mg UNSCH PRN IV PUSH SEE LABEL COMMENTS 09/30/17 20:00 Magnesium Hydroxide (Milk Of Magnesia Liq) 30 ml Q12H PRN PO Mild constipation 09/30/17 20:00 Sennosides (Senokot) 17.2 mg Q12H PRN PO Moderate constipation 09/30/17 20:00 Bisacodyl (Dulcolax Supp) 10 mg DAILY PRN RECTAL SEVERE CONSITIPATION 09/30/17 20:00 Lactulose (Lactulose Liq) 30 ml DAILY PRN PO SEVERE CONSITIPATION 09/30/17 20:00 Morphine Sulfate (Morphine Inj) 2 mg Q3H PRN IV breakthrough pain/if NPO 09/30/17 23:00 10/01/17 02:50 Alprazolam (Xanax) 0.25 mg BID PRN PO ANXIETY 09/30/17 23:30 10/02/17 06:34 Amiodarone HCl (Cordarone) 200 mg DAILY PO 10/01/17 09:00 10/01/17 08:35 Amlodipine Besylate (Norvasc) 2.5 mg BID PO 09/30/17 23:30 10/01/17 21:00 Atorvastatin Calcium (Lipitor) 40 mg HS PO 10/01/17 21:00 Carvedilol (Coreg) 25 mg DAILY PO 10/01/17 09:00 10/01/17 08:34 Levobunolol HCl (Betagan Liquifilm 0.5%) 2 drop DAILY EACH EYE 10/01/17 09:00 10/03/17 12:27 Temazepam (Restoril) 15 mg HS PRN PO INSOMNIA 09/30/17 23:30 Carbidopa/Levodopa (Sinemet 25-100 Mg) 1.5 tab TID PO 10/01/17 09:00 10/02/17 08:23 Acetaminophen (Tylenol) 650 mg Q6H PRN PO headache/fever/pain1-2 10/01/17 14:45 Acetaminophen/ Hydrocodone Bitart ([place] 5-325 Mg) 1 tab Q4H PRN PO PAIN SCALE 3 TO 5 10/01/17 14:45 10/02/17 12:33 Acetaminophen/ Hydrocodone Bitart ([place] 7.5-325 Mg) 1 tab Q4H PRN PO PAIN SCALE 6 TO 10 10/01/17 14:45 Pantoprazole Sodium (Protonix Inj) 40 mg DAILY IVP 10/02/17 09:00 10/03/17 09:35 Morphine Sulfate (Morphine Inj) 2 mg Q2H PRN IV PUSH PAIN SCALE 1 TO 6 10/01/17 17:45 Morphine Sulfate (Morphine Inj) 4 mg Q2H PRN IV PUSH PAIN SCALE 7 TO 10 10/01/17 17:45 Acetaminophen (Tylenol) 650 mg Q4H PRN PO TEMPERATURE > 101.5 F 10/01/17 17:45 Albuterol Sulfate (Albuterol Neb) 2.5 mg Q2HR NEB PRN NEB Dyspnea 10/01/17 21:30 Hydralazine HCl (Apresoline Inj) 10 mg Q1HR PRN IV PUSH SBP>160, DBP>90 10/01/17 22:00 Ropinirole HCl (Requip) 0.25 mg Q8HR PO 10/03/17 06:00 Ondansetron HCl (Zofran Odt) 4 mg Q6H PRN SL NAUSEA OR VOMITING 10/02/17 22:45 Sodium Chloride 1,000 ml @ 100 mls/hr Q10H IV 10/03/17 08:00 10/03/17 10:56 Furosemide (Lasix Inj) 40 mg DAILY IV PUSH 10/03/17 08:00 10/03/17 09:32 Dextrose (D50w (Vial) Inj) 50 ml UNSCH PRN IV PUSH HYPOGLYCEMIA-SEE COMMENTS 10/03/17 08:00 Glucagon (Glucagon Inj) 1 mg UNSCH PRN OTHER HYPOGLYCEMIA-SEE COMMENTS 10/03/17 08:00 Clonidine (Catapres-Tts 0.1mg Patch.7d) 1 patch Q7D TD 10/03/17 12:00 Enalaprilat (Vasotec Inj) 1.25 mg Q6H PRN IV PUSH SBP> OR = 180, DBP> OR = 100 10/03/17 10:30 Miscellaneous Information 1 Q7D T-DERMAL 10/10/17 12:00 Acetaminophen 100 ml @ 400 mls/hr Q6H IV 10/03/17 14:00 (Katiuska Goff) Medical Decision Making MDM Remarks 87 y/o male with acute unstable L2 fracture, status post ORIF L2 fracture, L1- L3 posterolateral fixation with transpedicular screws and rods, L2 Kyphoplasty postoperative confusion, hallucination, (Katiuska Goff) Plan Plan Remarks 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 I reviewed and agree with the findings presented. I attest that I had a [id number] encounter with the patient on the same day, and personally performed and documented my assessment and findings in the medical record. (Milo Shafer MD) Katiuska Goff October 03, 2017 13:45 Milo Shafer MD October 06, 2017 14:20
[2017-10-03] MEDS ORDERED: HYDR-3516 PO (15:50)
[2017-10-03] MEDS ORDERED: ROPI.25 PO (15:50)
[2017-10-03] MEDS ORDERED: ALPR0.25 PO (15:50)
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
[2017-10-03] MEDS: TEMAZEPAM 15 MG CAP PO PRN (21:22)
[2017-10-04] MEDS: ACETAMINOPHEN 1000 MG/100 ML 100 ML IV SCH ×2 (02:00→08:35)
[2017-10-04] MEDS: SODIUM CHLOR 0.45% 1000 ML INJ 1,000 ML IV SCH ×2 (04:00→05:46)
[2017-10-04 05:45] VITALS: BP 128/80; PULSE 88; RESP 22; TEMP 98; O2SAT 97
[2017-10-04] MEDS: CARBIDOPA/LEVODOPA 25 MG/100 MG TAB PO SCH ×3 (05:46→20:56)
[2017-10-04] MEDS: SODIUM CHLORIDE 0.9% FLUSH 10 ML FLUSH IV FLUSH PRN ×2 (05:47→20:55)
[2017-10-04 07:25] LABS: AUTOMATED NEUTROPHIL # 9.1 TH/MM3 (1.8-7.7); BASOPHIL # 0.1 TH/MM3 (0-0.2); BASOPHIL % 0.6 % (0.0-2.0); EOSINOPHIL # 0.1 TH/MM3 (0-0.4); EOSINOPHIL % 0.8 % (0.0-4.0); HEMATOCRIT 33.2 % (39.0-51.0); HEMOGLOBIN 11.1 GM/DL (13.0-17.0); LYMPH % 15.8 % (9.0-44.0); MEAN CELL VOLUME 93.2 FL (80.0-100.0); MEAN CORPUSCULAR HEMOGLOBIN 31.1 PG (27.0-34.0); MEAN CORPUSCULAR HGB CONC 33.4 % (32.0-36.0); MEAN PLATELET VOLUME 8.2 FL (7.0-11.0); MONO % 11.8 % (0.0-8.0); MONOCYTE # 1.5 TH/MM3 (0-0.9); PLATELET COUNT 130 TH/MM3 (150-450); RED BLOOD COUNT 3.57 MIL/MM3 (4.50-5.90); RED CELL DISTRIBUTION WIDTH 15.8 % (11.6-17.2); WHITE BLOOD COUNT 12.9 TH/MM3 (4.0-11.0)
[2017-10-04 08:00] VITALS: BP 163/56; PULSE 70; RESP 18; TEMP 97.5; O2SAT 93
[2017-10-04 08:03] LABS: BICARBONATE 27.3 MEQ/L (21.0-32.0); CALCIUM 8.4 MG/DL (8.5-10.1); CREATININE 1.09 MG/DL (0.60-1.30); MAGNESIUM 2.2 MG/DL (1.5-2.5)
[2017-10-04] MEDS: CARVEDILOL 12.5 MG TAB PO SCH (08:21)
[2017-10-04] MEDS: AMIODARONE 200 MG TAB PO SCH (08:21)
[2017-10-04] MEDS: amLODIPine BESYLATE 5 MG TAB PO SCH ×2 (08:23→20:56)
[2017-10-04] MEDS: SODIUM CHLORIDE 0.9% FLUSH 10 ML FLUSH IV FLUSH SCH ×2 (08:36→20:55)
[2017-10-04] MEDS: LEVOBUNOLOL HCL 0.5% OPHT SOLN 5 ML BTL EACH EYE SCH (08:46)
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
--- NOTE | 2017-10-04 10:06 | HHI.NSPN ---
(Katiuska Goff) Note Status Status: Progress Note (Katiuska Goff) Interval History Interval History status post ORIF L2 fracture, L1-L3 posterolateral fixation with transpedicular screws and rods, L2 Kyphoplasty 10/01/1710/02: remains in PACU, awake, appears comfortable. nursing reports hallucinating. vitals stable, mildly hypotensive. 10/03: remains confused, hallucinating, but still oriented to name. 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 10/04: Remains confused, oriented to name only. Following few simple commands. (Katiuska Goff) Labs, Micro, & Vital Signs Results Date Time Temp Pulse Resp B/P (MAP) Pulse Ox O2 Delivery O2 Flow Rate FiO2 10/04/17 08:00 97.5 70 18 163/56 (91) 93 10/04/17 05:45 98.0 88 22 128/80 (96) 97 10/03/17 21:45 97.9 80 19 130/88 (102) 94 10/03/17 16:32 75 10/03/17 16:14 98.0 63 18 161/76 (104) 94 10/03/17 12:04 98.2 70 20 109/72 (84) 98 Constitutional Vital Signs Date Time Temp Pulse Resp B/P (MAP) Pulse Ox O2 Delivery O2 Flow Rate FiO2 10/04/17 08:00 97.5 70 18 163/56 (91) 93 10/04/17 05:45 98.0 88 22 128/80 (96) 97 10/03/17 21:45 97.9 80 19 130/88 (102) 94 10/03/17 16:32 75 10/03/17 16:14 98.0 63 18 161/76 (104) 94 10/03/17 12:04 98.2 70 20 109/72 (84) 98 (Katiuska Goff) Review of Systems ROS Limitations: Clinical Condition (Katiuska Goff) Physical Exam Mr. Diego elderly male, in no acute distress. Neuro: Awake, oriented to name only. confused mumbling speech but follows simple commands. Cranial nerve: pupils equal, round and reactive to light. Gross EOMs intact, facial motor appears symmetric at rest, tongue protruded midline Neck is soft and supple Motor: moving all four extremities grossly which appears symmetrical, however exam limited due to clinical condition Plantars neutral bilaterally, no ankle clonus Skin: warm, dry, no cyanosis Lungs clear Heart regular rate rhythm (Katiuska Goff) Medications Current Medications Current Medications Medications (Trade) Dose Ordered Sig/Noe Route PRN Reason Start Time Stop Time Status Last Admin Dose Admin Sodium Chloride (NS Flush) 2 ml UNSCH PRN IV FLUSH FLUSH AFTER USING IV ACCESS 09/30/17 20:00 10/04/17 05:47 Sodium Chloride (NS Flush) 2 ml BID IV FLUSH 09/30/17 21:00 10/02/17 08:22 Naloxone HCl (Narcan Inj) 0.4 mg UNSCH PRN IV PUSH SEE LABEL COMMENTS 09/30/17 20:00 Magnesium Hydroxide (Milk Of Magnesia Liq) 30 ml Q12H PRN PO Mild constipation 09/30/17 20:00 Sennosides (Senokot) 17.2 mg Q12H PRN PO Moderate constipation 09/30/17 20:00 Bisacodyl (Dulcolax Supp) 10 mg DAILY PRN RECTAL SEVERE CONSITIPATION 09/30/17 20:00 Lactulose (Lactulose Liq) 30 ml DAILY PRN PO SEVERE CONSITIPATION 09/30/17 20:00 Alprazolam (Xanax) 0.25 mg BID PRN PO ANXIETY 09/30/17 23:30 10/02/17 06:34 Amiodarone HCl (Cordarone) 200 mg DAILY PO 10/01/17 09:00 10/04/17 08:21 Amlodipine Besylate (Norvasc) 2.5 mg BID PO 09/30/17 23:30 10/04/17 08:23 Atorvastatin Calcium (Lipitor) 40 mg HS PO 10/01/17 21:00 Carvedilol (Coreg) 25 mg DAILY PO 10/01/17 09:00 10/04/17 08:21 Levobunolol HCl (Betagan Liquifilm 0.5%) 2 drop DAILY EACH EYE 10/01/17 09:00 10/04/17 08:46 Temazepam (Restoril) 15 mg HS PRN PO INSOMNIA 09/30/17 23:30 10/03/17 21:22 Acetaminophen (Tylenol) 650 mg Q6H PRN PO headache/fever/pain1-2 10/01/17 14:45 Acetaminophen/ Hydrocodone Bitart ([place] 5-325 Mg) 1 tab Q4H PRN PO PAIN SCALE 3 TO 5 10/01/17 14:45 10/02/17 12:33 Acetaminophen/ Hydrocodone Bitart ([place] 7.5-325 Mg) 1 tab Q4H PRN PO PAIN SCALE 6 TO 10 10/01/17 14:45 Acetaminophen (Tylenol) 650 mg Q4H PRN PO TEMPERATURE > 101.5 F 10/01/17 17:45 Albuterol Sulfate (Albuterol Neb) 2.5 mg Q2HR NEB PRN NEB Dyspnea 10/01/17 21:30 Hydralazine HCl (Apresoline Inj) 10 mg Q1HR PRN IV PUSH SBP>160, DBP>90 10/01/17 22:00 Ropinirole HCl (Requip) 0.25 mg Q8HR PO 10/03/17 06:00 10/04/17 05:46 Ondansetron HCl (Zofran Odt) 4 mg Q6H PRN SL NAUSEA OR VOMITING 10/02/17 22:45 Dextrose (D50w (Vial) Inj) 50 ml UNSCH PRN IV PUSH HYPOGLYCEMIA-SEE COMMENTS 10/03/17 08:00 Glucagon (Glucagon Inj) 1 mg UNSCH PRN OTHER HYPOGLYCEMIA-SEE COMMENTS 10/03/17 08:00 Enalaprilat (Vasotec Inj) 1.25 mg Q6H PRN IV PUSH SBP> OR = 180, DBP> OR = 100 10/03/17 10:30 Miscellaneous Information 1 Q7D T-DERMAL 10/10/17 12:00 Acetaminophen 100 ml @ 400 mls/hr Q6H IV 10/03/17 14:00 10/04/17 13:59 10/04/17 08:35 Carbidopa/Levodopa (Sinemet 25-100 Mg) 1.5 tab Q8HR PO 10/03/17 14:45 10/04/17 05:46 Potassium Chloride (KCl) 30 meq DAILY PO 10/04/17 09:30 (Katiuska Goff) Medical Decision Making MDM Remarks 87 y/o male with acute unstable L2 fracture, status post ORIF L2 fracture, L1- L3 posterolateral fixation with transpedicular screws and rods, L2 Kyphoplasty postoperative confusion, hallucination, (Katiuska Goff) Plan Plan Remarks cont neuro checks IS every hour SCDs and TEDs for dvt prophylaxis GI prophylaxis PT, encouraged to start mobilizing out of bed with TLSO Monitor wound dressing Discussed with nursing (Katiuska Goff) Attending Statement The exam, history, and the medical decision-making described in the above note were completed with the assistance of the mid-level provider. I reviewed and agree with the findings presented. I attest that I had a [id number] encounter with the patient on the same day, and personally performed and documented my assessment and findings in the medical record. (Milo Shafer MD) Katiuska Goff October 04, 2017 10:06 Milo Shafer MD October 05, 2017 13:37
[2017-10-04] MEDS: POTASSIUM CHLORIDE 10 MEQ CONTROLLED RELEASE TAB PO SCH (11:51)
[2017-10-04 12:00] VITALS: BP 167/79; PULSE 70; RESP 18; TEMP 98.3; O2SAT 93
[2017-10-04 12:20] LABS: BACTERIA, URINE OCC /hpf; BILIRUBIN, URINE NEG (NEG); BLOOD, URINE LARGE (NEG); GLUCOSE,URINE NEG (NEG); KETONE, URINE TRACE mg/dL (NEG); MUCUS URINE FEW /lpf (OCC); NITRITE,URINE NEG (NEG); PH, URINE 5.5 (5.0-8.5); SQUAMOUS EPITHELIAL CELL URINE <1 /hpf (0-5); URINE COLOR YELLOW (YELLW/STRAW); URINE LEUKOCYTE ESTERASE TRACE (NEG)
[2017-10-04 12:44] VITALS: O2SAT 93
--- NOTE | 2017-10-04 13:42 | PD.PSY.CON ---
Provisional Diagnosis Admission Date September 30, 2017 at 20:02 [place] I. Delirium due to underlying medical conditions, drug-induced psychosis [place] II. Deferred History of Present Illness Service Psychiatry Consult Requested By Medical team Reason for Consult Agitation Primary Care Physician Jessica Ramos MD HPI The patient is a 87 year-old man, domiciled with his in [place], retired, with no previous psychiatric history, no previous suicide attempts, no prepsychotic hospitalizations, with a medical history of Hypertension, Hyperlipidemia, CAD, CHF, Parkinson's disease, History of prostate cancer status post prostatectomy presented to the ED with complaints of back pain for 2 weeks. He states 2 weeks ago he misstepped and twisted his back almost falling. s/p lumbar laminectomy. Neuro/Psych: Consulted to psychiatry due to agitation and aggressive behavior. On psychiatric evaluation today I find a patient that is confused, superficially cooperative. But, he is able to tell me that he feels fine. He reports okay mood. Is difficult to understand the patient due to incoherent speech. At times disorganized, but he is able to tell me that he is in the hospital, he is disoriented in time. He denies suicidal enemas ideation, he denies visual and auditory hallucinations. Patient gave me permission to call his for collateral information. I call to his Pippa Diego, , who reports that the patient does not have any previous psychiatric history. She denies that the patient had been diagnosed with dementia. He reports that aggressive behavior and agitation is out of character for her . He has not been taking any medication for anxiety or depression at home. The last time she saw him in the hospital he definitely was confused, disoriented "but this is status is new after the surgery". Review of Systems Constitutional: DENIES: Diaphoretic episodes, Fatigue, Fever, Weight gain, Weight loss, Chills, Dizziness, Change in appetite, Night Sweats Endocrine: DENIES: Heat/cold intolerance, Polydipsia, Polyuria, Polyphagia Eyes: DENIES: Blurred vision, Diplopia, Eye inflammation, Eye pain, Vision loss , Photosensitivity, Double Vision Ears, nose, mouth, throat: DENIES: Tinnitus, Hearing loss, Vertigo, Nasal discharge, Oral lesions, Throat pain, Hoarseness, Ear Pain, Running Nose, Epistaxis, Sinus Pain, Toothache, Odynophagia Respiratory: DENIES: Apneas, Cough, Snoring, Wheezing, Hemoptysis, Sputum production, Shortness of breath Cardiovascular: DENIES: Chest pain, Palpitations, Syncope, Dyspnea on Exertion , PND, Lower Extremity Edema, Orthopnea, Claudication Gastrointestinal: DENIES: Abdominal pain, Black stools, Bloody stools, Constipation, Diarrhea, Nausea, Vomiting, Difficulty Swallowing, Anorexia Genitourinary: DENIES: Sexual dysfunction, Urinary frequency, Urinary incontinence, Urgency, Hematuria, Dysuria, Nocturia, Penile Discharge, Testicular Pain, Testicular Swelling Musculoskeletal: DENIES: Joint pain, Muscle aches, Stiffness, Joint Swelling, Back pain, Neck pain Integumentary: DENIES: Abnormal pigmentation, Nail changes, Pruritus, Rash Hematologic/lymphatic: DENIES: Bruising, Lymphadenopathy Immunologic/allergic: DENIES: Eczema, Urticaria Neurologic: DENIES: Abnormal gait, Headache, Localized weakness, Paresthesias, Seizures, Speech Problems, Tremor, Poor Balance Psychiatric: COMPLAINS OF: Confusion, Agitation, DENIES: Anxiety, Mood changes , Depression, Hallucinations, Suicidal Ideation, Homicidal Ideation, Delusions Past Family Social History Coded Allergies: naproxen (Unverified Allergy, Severe, "face,lips and hands swell", 09/30/17) MRI PRECAUTION (Verified Adverse Reaction, Unknown, PACEMAKER, 09/30/17) PACEMAKER PRESENT 10/29/15 JLA Active Scripts Hydrocodone/Acetaminophen (Hydrocodone-Acetamin 5-325 mg) 5 Mg-325 Mg Tablet, 1 TAB PO Q6H Y for pain, #12 TAB Prov:Chalino Shepard MD 10/03/17 Alprazolam (Alprazolam) 0.25 Mg Tab, 0.25 MG PO BID Y for ANXIETY, #6 TAB 0 Refills Prov:Chalino Shepard MD 10/03/17 Reported Medications Carbidopa/Levodopa (Carbidopa-Levo 25-100 mg Odt) 25 Mg-100 Mg Tab.rapdis, 1.5 TAB PO TID 09/30/17 Cobalamine Combinations (Vitamin B75-Cfvsi Acid) 500-400 Mcg Tab, 1 TAB PO DAILY for Nutritional Supplement, TAB 0 Refills 09/30/17 Polyethylene Glycol 3350 Powder (Polyethylene Glycol 3350 Powder) 17 Gram Pow, 17 GM PO DAILY for Constipation, #1 BOTTLE 0 Refills 09/30/17 Temazepam (Temazepam) 15 Mg Cap, 15 MG PO HS Y for INSOMNIA, #30 CAP 0 Refills 09/30/17 Aspirin (Aspirin) 81 Mg Chew, 81 MG CHEW DAILY, TAB 0 Refills 09/30/17 Levobunolol Opth Drops (Levobunolol Opth Drops) 0.5% Drops, 1-2 DROP EACH EYE DAILY for Glaucoma, #1 BOTTLE 0 Refills 09/30/17 Multiple Vitamins W/ Minerals (Preservision Areds) 1 Tab, 1 TAB PO DAILY for Nutritional Supplement, TAB 0 Refills 09/30/17 Fish Oil-Cholecalciferol ([place]-3 Fish Oil/Vitamin) 1,000-1,000 Mg Cap, 1 CAP PO DAILY for Nutritional Supplement, CAP 0 Refills 09/30/17 Atorvastatin (Atorvastatin) 40 Mg Tab, 40 MG PO HS for Cholesterol Management, # 30 TAB 0 Refills 09/30/17 Atorvastatin (Lipitor) 40 Mg Tab, 40 MG PO HS for Cholesterol Management, #30 TAB 0 Refills 09/30/17 Carvedilol (Coreg) 25 Mg Tab, 25 MG PO DAILY, #60 TAB 0 Refills 09/30/17 Amiodarone (Amiodarone) 200 Mg Tab, 200 MG PO DAILY for Regulate Heart Beat, # 30 TAB 0 Refills 09/30/17 Potassium Chloride ER (Potassium Chloride ER) 10 Meq Tab, 30 MEQ PO DAILY for Electrolyte Replacement, #30 TAB 0 Refills 09/15/17 Potassium Chloride ER (Potassium Chloride ER) 10 Meq Tab, 40 MEQ PO HS for Electrolyte Replacement, #30 TAB 0 Refills 09/15/17 Amlodipine (Amlodipine) 2.5 Mg Tab, 2.5 MG PO BID for Blood Pressure Management , #30 TAB 0 Refills 09/15/17 Furosemide (Furosemide) 40 Mg Tab, 40 MG PO DAILY, #30 TAB 0 Refills 09/15/17 Discontinued Reported Medications [[id number]] No Conflict Check, 1.5 TAB TID 09/30/17 Erythromycin Opth Oint (Erythromycin Opth Oint) 5 Mg/Gm Oint, 1 APPLIC EACH EYE HS for Infection, #1 TUBE 0 Refills 09/15/17 Doxycycline (Doxycycline) 40 Mg Cap, 40 MG PO DAILY for Infection, CAP 0 Refills 09/15/17 Prednisone (Prednisone) 20 Mg Tab, 20 MG PO DIRECTED, #24 TAB 0 Refills Take 60 MG daily x 4 days, then 40 MG x 4 days, then 20 MG daily x 4 days. 09/15/17 Current Medications Medications (Trade) Dose Ordered Sig/Noe Route Start Time Stop Time Status Last Admin (NS Flush) 2 ml UNSCH PRN IV FLUSH 09/30/17 20:00 10/04/17 05:47 (NS Flush) 2 ml BID IV FLUSH 09/30/17 21:00 10/02/17 08:22 (Narcan Inj) 0.4 mg UNSCH PRN IV PUSH 09/30/17 20:00 (Milk Of Magnesia Liq) 30 ml Q12H PRN PO 09/30/17 20:00 (Senokot) 17.2 mg Q12H PRN PO 09/30/17 20:00 (Dulcolax Supp) 10 mg DAILY PRN RECTAL 09/30/17 20:00 (Lactulose Liq) 30 ml DAILY PRN PO 09/30/17 20:00 (Xanax) 0.25 mg BID PRN PO 09/30/17 23:30 10/02/17 06:34 (Cordarone) 200 mg DAILY PO 10/01/17 09:00 10/04/17 08:21 (Norvasc) 2.5 mg BID PO 09/30/17 23:30 10/04/17 08:23 (Lipitor) 40 mg HS PO 10/01/17 21:00 (Coreg) 25 mg DAILY PO 10/01/17 09:00 10/04/17 08:21 (Betagan Liquifilm 0.5%) 2 drop DAILY EACH EYE 10/01/17 09:00 10/04/17 08:46 (Restoril) 15 mg HS PRN PO 09/30/17 23:30 10/03/17 21:22 (Tylenol) 650 mg Q6H PRN PO 10/01/17 14:45 ([place] 5-325 Mg) 1 tab Q4H PRN PO 10/01/17 14:45 10/02/17 12:33 ([place] 7.5-325 Mg) 1 tab Q4H PRN PO 10/01/17 14:45 (Tylenol) 650 mg Q4H PRN PO 10/01/17 17:45 (Albuterol Neb) 2.5 mg Q2HR NEB PRN NEB 10/01/17 21:30 (Apresoline Inj) 10 mg Q1HR PRN IV PUSH 10/01/17 22:00 (Requip) 0.25 mg Q8HR PO 10/03/17 06:00 10/04/17 05:46 (Zofran Odt) 4 mg Q6H PRN SL 10/02/17 22:45 (D50w (Vial) Inj) 50 ml UNSCH PRN IV PUSH 10/03/17 08:00 (Glucagon Inj) 1 mg UNSCH PRN OTHER 10/03/17 08:00 (Vasotec Inj) 1.25 mg Q6H PRN IV PUSH 10/03/17 10:30 Miscellaneous Information 1 Q7D T-DERMAL 10/10/17 12:00 Acetaminophen 100 ml @ 400 mls/hr Q6H IV 10/03/17 14:00 10/04/17 13:59 10/04/17 08:35 (Sinemet 25-100 Mg) 1.5 tab Q8HR PO 10/03/17 14:45 10/04/17 05:46 (KCl) 30 meq DAILY PO 10/04/17 09:30 10/04/17 11:51 Family Psych History No family psychiatric history Social History Patient was born and raised in [place], he lives in [place] with his , he has 5 kids, he is retired, 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 2) Family support Physical Exam Confused, with psychomotor retardation Vital Signs Vital Signs Date Time Temp Pulse Resp B/P (MAP) Pulse Ox O2 Delivery O2 Flow Rate FiO2 10/04/17 12:44 93 10/04/17 12:00 98.3 70 18 167/79 (108) 10/03/17 09:23 Nasal Cannula 3.00 I/O 10/04/17 10/04/17 10/05/17 08:00 16:00 00:00 Intake Total 300 ml 717 ml Output Total 1000 ml Balance -700 ml 717 ml Lab Results Test 10/04/17 06:58 5/11/18 11:58 White Blood Count 12.9 TH/MM3 Red Blood Count 3.57 MIL/MM3 Hemoglobin 11.1 GM/DL Hematocrit 33.2 % Mean Corpuscular Volume 93.2 FL Mean Corpuscular Hemoglobin 31.1 PG Mean Corpuscular Hemoglobin Concent 33.4 % Red Cell Distribution Width 15.8 % Platelet Count 130 TH/MM3 Mean Platelet Volume 8.2 FL Neutrophils (%) (Auto) 71.0 % Lymphocytes (%) (Auto) 15.8 % Monocytes (%) (Auto) 11.8 % Eosinophils (%) (Auto) 0.8 % Basophils (%) (Auto) 0.6 % Neutrophils # (Auto) 9.1 TH/MM3 Lymphocytes # (Auto) 2.0 TH/MM3 Monocytes # (Auto) 1.5 TH/MM3 Eosinophils # (Auto) 0.1 TH/MM3 Basophils # (Auto) 0.1 TH/MM3 CBC Comment DIFF FINAL Differential Comment Blood Urea Nitrogen 22 MG/DL Creatinine 1.09 MG/DL Random Glucose 103 MG/DL Calcium Level 8.4 MG/DL Magnesium Level 2.2 MG/DL Sodium Level 148 MEQ/L Potassium Level 3.2 MEQ/L Chloride Level 111 MEQ/L Carbon Dioxide Level 27.3 MEQ/L Anion Gap 10 MEQ/L Estimat Glomerular Filtration Rate 64 ML/MIN Urine Color YELLOW Urine Turbidity CLEAR Urine pH 5.5 Urine Specific [place] 1.013 Urine Protein TRACE mg/dL Urine Glucose (UA) NEG mg/dL Urine Ketones TRACE mg/dL Urine Occult Blood LARGE Urine Nitrite NEG Urine Bilirubin NEG Urine Urobilinogen LESS THAN 2.0 MG/DL Urine Leukocyte Esterase TRACE Urine RBC 24 /hpf Urine WBC 2 /hpf Urine Squamous Epithelial Cells <1 /hpf Urine Bacteria OCC /hpf Urine Mucus FEW /lpf Microscopic Urinalysis Comment CULT NOT INDICATED Mental Status Examination Appearance: Appropriate Consciousness: Clouded Orientation: Person Motor Activity: Abnormal gait Speech: Incoherent Language: Adequate Fund of Knowledge: Adequate Memory: Impaired Mood: Appropriate Affect: Appropriate Thought Process & Associations: Loose associations Thought Content: Appropriate Hallucination Type: None Delusion Type: None Suicidal Ideation: No Suicidal Plan: No Suicidal Intention: No Homicidal Ideation: No Homicidal Plan: No Homicidal Intention: No Insight: Poor Judgment: Poor Assessment & Plan Problem List: (1) Delirium due to another medical condition ICD Codes: F05 - Delirium due to known physiological condition Assessment & Plan: The patient presents confused, partially oriented, able to report good mood, he denies depression, denies anxiety, denies sienna, denies suicidal and homicidal ideation, he denies visual and auditory hallucinations. No agitation or aggressive behavior at this moment. But, patient has been reported agitated recently. As per , the patient does not have any previous psychiatric history, no treatment diagnosis of dementia, current picture is out of character for the patient. Patient seems to be delirious most likely related with postoperative status and underlying medical conditions. Will order Seroquel 12.5 mg twice daily to help to prevent agitation/delirium. Patient does not meet criteria for involuntary psychiatric admission. Will follow up Assessment & Plan Estimated LOS: Rehan Crenshaw MD October 04, 2017 13:42
[2017-10-04 16:00] VITALS: BP 112/66; PULSE 68; PULSE 79; RESP 18; TEMP 98; O2SAT 95
[2017-10-04 20:40] VITALS: BP 132/80; PULSE 88; RESP 19; TEMP 98; O2SAT 97
[2017-10-04] MEDS: TEMAZEPAM 15 MG CAP PO PRN (20:56)
[2017-10-04] MEDS: ATORVASTATIN 40 MG TAB PO SCH (20:56)
[2017-10-05] VITALS (7 sets, daily range): BP systolic 121–153; BP diastolic 59–89; PULSE 67–100; RESP 18–20; TEMP 97.3–98.8; O2SAT 93–97
[2017-10-05] MEDS: CARBIDOPA/LEVODOPA 25 MG/100 MG TAB PO SCH ×3 (05:51→21:07)
[2017-10-05] MEDS: SODIUM CHLORIDE 0.9% FLUSH 10 ML FLUSH IV FLUSH PRN (05:51)
[2017-10-05 07:37] LABS: AUTOMATED NEUTROPHIL # 8.4 TH/MM3 (1.8-7.7); BASOPHIL % 0.3 % (0.0-2.0); EOSINOPHIL # 0.3 TH/MM3 (0-0.4); EOSINOPHIL % 2.1 % (0.0-4.0); HEMATOCRIT 33.6 % (39.0-51.0); HEMOGLOBIN 11.2 GM/DL (13.0-17.0); LYMPH % 19.7 % (9.0-44.0); LYMPHOCYTE # 2.5 TH/MM3 (1.0-4.8); MEAN CELL VOLUME 92.7 FL (80.0-100.0); MEAN CORPUSCULAR HEMOGLOBIN 30.8 PG (27.0-34.0); MEAN CORPUSCULAR HGB CONC 33.3 % (32.0-36.0); MEAN PLATELET VOLUME 8.2 FL (7.0-11.0); MONO % 11.8 % (0.0-8.0); MONOCYTE # 1.5 TH/MM3 (0-0.9); NEUT % 66.1 % (16.0-70.0); PLATELET COUNT 145 TH/MM3 (150-450); RED BLOOD COUNT 3.63 MIL/MM3 (4.50-5.90); RED CELL DISTRIBUTION WIDTH 15.8 % (11.6-17.2); WHITE BLOOD COUNT 12.7 TH/MM3 (4.0-11.0)
[2017-10-05 07:55] LABS: CALCIUM 8.4 MG/DL (8.5-10.1); CREATININE 1.23 MG/DL (0.60-1.30); MAGNESIUM 2.4 MG/DL (1.5-2.5)
[2017-10-05] MEDS: POTASSIUM CHLORIDE 10 MEQ CONTROLLED RELEASE TAB PO SCH (08:45)
[2017-10-05] MEDS: amLODIPine BESYLATE 5 MG TAB PO SCH ×2 (08:45→21:07)
[2017-10-05] MEDS: AMIODARONE 200 MG TAB PO SCH (08:45)
[2017-10-05] MEDS: QUEtiapine FUMARATE 25 MG TAB PO SCH ×2 (08:45→13:02)
[2017-10-05] MEDS: CARVEDILOL 12.5 MG TAB PO SCH (08:45)
[2017-10-05] MEDS: LEVOBUNOLOL HCL 0.5% OPHT SOLN 5 ML BTL EACH EYE SCH (08:46)
[2017-10-05] MEDS: SODIUM CHLORIDE 0.9% FLUSH 10 ML FLUSH IV FLUSH SCH ×2 (08:46→21:10)
--- NOTE | 2017-10-05 08:46 | EKG ---
Date Performed: 10/03/2017 Time Performed: 13:46:16 PTAGE: 87 years EKG: ELECTRONIC ATRIAL PACEMAKER ELECTRONIC VENTRICULAR PACEMAKER ABNORMAL RHYTHM ECG PREVIOUS TRACING : 10/01/2017 07.05 DOCTOR: Tricia Perez Interpretating Date/Time 10/05/2017 08:41:47
[2017-10-05 10:02] LABS: BANDS 7 % (0-6); LYMPHOCYTES 14 % (9-44); METAMYELOCYTES 2 % (0-1); MONOCYTES 12 % (0-8); NEUTROPHIL # MANUAL DIFF 9.3 TH/MM3 (1.8-7.7); POLYS (SEG NEUTROPHILS) 64 % (16-70)
[2017-10-05] MEDS ORDERED: SERO25TA PO (12:38)
--- NOTE | 2017-10-05 13:09 | HHI.NSPN ---
(Katiuska Goff) Note Status Status: Progress Note (Katiuska Goff) Interval History Interval History status post ORIF L2 fracture, L1-L3 posterolateral fixation with transpedicular screws and rods, L2 Kyphoplasty 10/01/1710/02: remains in PACU, awake, appears comfortable. nursing reports hallucinating. vitals stable, mildly hypotensive. 10/03: remains confused, hallucinating, but still oriented to name. 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 10/04: Remains confused, oriented to name only. Following few simple commands. 10/05: Appears comfortable but confused. moving hands purposefully. (Katiuska Goff) Labs, Micro, & Vital Signs Results Date Time Temp Pulse Resp B/P (MAP) Pulse Ox O2 Delivery O2 Flow Rate FiO2 10/05/17 12:39 70 10/05/17 12:31 97.7 69 18 153/84 (107) 93 10/05/17 12:09 21 10/05/17 05:15 98.8 100 20 140/89 (106) 96 10/04/17 20:40 98.0 88 19 132/80 (97) 97 10/04/17 16:00 79 10/04/17 16:00 98.0 68 18 112/66 (81) 95 Constitutional Vital Signs Date Time Temp Pulse Resp B/P (MAP) Pulse Ox O2 Delivery O2 Flow Rate FiO2 10/05/17 12:39 70 10/05/17 12:31 97.7 69 18 153/84 (107) 93 10/05/17 12:09 21 10/05/17 05:15 98.8 100 20 140/89 (106) 96 10/04/17 20:40 98.0 88 19 132/80 (97) 97 10/04/17 16:00 79 10/04/17 16:00 98.0 68 18 112/66 (81) 95 (Katiuska Goff) Review of Systems ROS Limitations: Clinical Condition, Altered Mental Status (Katiuska Goff) Physical Exam Mr. Diego elderly male, in no acute distress. Neuro: confused mumbling speech. Cranial nerve: pupils equal, round and reactive to light. facial motor appears symmetric at rest Neck is soft and supple, no meningismus or nuchal rigidity Motor: moving upper extremities purposefully, withdraws LE to pain Plantars neutral bilaterally, no ankle clonus Skin: warm, dry, no cyanosis Lungs clear Heart regular rate rhythm (Katiuska Goff) Medications Current Medications Current Medications Medications (Trade) Dose Ordered Sig/Noe Route PRN Reason Start Time Stop Time Status Last Admin Dose Admin Sodium Chloride (NS Flush) 2 ml UNSCH PRN IV FLUSH FLUSH AFTER USING IV ACCESS 09/30/17 20:00 10/05/17 05:51 Sodium Chloride (NS Flush) 2 ml BID IV FLUSH 09/30/17 21:00 10/05/17 08:46 Naloxone HCl (Narcan Inj) 0.4 mg UNSCH PRN IV PUSH SEE LABEL COMMENTS 09/30/17 20:00 Magnesium Hydroxide (Milk Of Magnesia Liq) 30 ml Q12H PRN PO Mild constipation 09/30/17 20:00 Sennosides (Senokot) 17.2 mg Q12H PRN PO Moderate constipation 09/30/17 20:00 Bisacodyl (Dulcolax Supp) 10 mg DAILY PRN RECTAL SEVERE CONSITIPATION 09/30/17 20:00 Lactulose (Lactulose Liq) 30 ml DAILY PRN PO SEVERE CONSITIPATION 09/30/17 20:00 Alprazolam (Xanax) 0.25 mg BID PRN PO ANXIETY 09/30/17 23:30 10/02/17 06:34 Amiodarone HCl (Cordarone) 200 mg DAILY PO 10/01/17 09:00 10/05/17 08:45 Amlodipine Besylate (Norvasc) 2.5 mg BID PO 09/30/17 23:30 10/05/17 08:45 Atorvastatin Calcium (Lipitor) 40 mg HS PO 10/01/17 21:00 10/04/17 20:56 Carvedilol (Coreg) 25 mg DAILY PO 10/01/17 09:00 10/05/17 08:45 Levobunolol HCl (Betagan Liquifilm 0.5%) 2 drop DAILY EACH EYE 10/01/17 09:00 10/05/17 08:46 Temazepam (Restoril) 15 mg HS PRN PO INSOMNIA 09/30/17 23:30 10/04/17 20:56 Acetaminophen (Tylenol) 650 mg Q6H PRN PO headache/fever/pain1-2 10/01/17 14:45 Acetaminophen/ Hydrocodone Bitart (Harrison 5-325 Mg) 1 tab Q4H PRN PO PAIN SCALE 3 TO 5 10/01/17 14:45 10/02/17 12:33 Acetaminophen/ Hydrocodone Bitart (Harrison 7.5-325 Mg) 1 tab Q4H PRN PO PAIN SCALE 6 TO 10 10/01/17 14:45 Acetaminophen (Tylenol) 650 mg Q4H PRN PO TEMPERATURE > 101.5 F 10/01/17 17:45 Albuterol Sulfate (Albuterol Neb) 2.5 mg Q2HR NEB PRN NEB Dyspnea 10/01/17 21:30 Hydralazine HCl (Apresoline Inj) 10 mg Q1HR PRN IV PUSH SBP>160, DBP>90 10/01/17 22:00 Ropinirole HCl (Requip) 0.25 mg Q8HR PO 10/03/17 06:00 10/05/17 05:51 Ondansetron HCl (Zofran Odt) 4 mg Q6H PRN SL NAUSEA OR VOMITING 10/02/17 22:45 Dextrose (D50w (Vial) Inj) 50 ml UNSCH PRN IV PUSH HYPOGLYCEMIA-SEE COMMENTS 10/03/17 08:00 Glucagon (Glucagon Inj) 1 mg UNSCH PRN OTHER HYPOGLYCEMIA-SEE COMMENTS 10/03/17 08:00 Enalaprilat (Vasotec Inj) 1.25 mg Q6H PRN IV PUSH SBP> OR = 180, DBP> OR = 100 10/03/17 10:30 Miscellaneous Information 1 Q7D T-DERMAL 10/10/17 12:00 Carbidopa/Levodopa (Sinemet 25-100 Mg) 1.5 tab Q8HR PO 10/03/17 14:45 10/05/17 05:51 Potassium Chloride (KCl) 30 meq DAILY PO 10/04/17 09:30 10/05/17 08:45 Quetiapine Fumarate (SEROquel) 12.5 mg BID@09,12 PO 10/05/17 09:00 10/05/17 08:45 (Katiuska Goff) Medical Decision Making MDM Remarks 87 y/o male with acute unstable L2 fracture, status post ORIF L2 fracture, L1- L3 posterolateral fixation with transpedicular screws and rods, L2 Kyphoplasty postoperative confusion, hallucination, stable (Katiuska Goff) Plan Plan Remarks cont neuro checks IS every hour SCDs and TEDs for dvt prophylaxis GI prophylaxis TLSO when out of bed Monitor wound dressing, discussed with nursing Optifoam dressing removal 10/08/17 (Katiuska Goff) Attending Statement The exam, history, and the medical decision-making described in the above note were completed with the assistance of the mid-level provider. I reviewed and agree with the findings presented. I attest that I had a [id number] encounter with the patient on the same day, and personally performed and documented my assessment and findings in the medical record. (Milo Shafer MD) Katiuska Goff October 05, 2017 13:09 Milo Shafer MD October 06, 2017 11:58
--- NOTE | 2017-10-05 14:20 | HHI.PR ---
Subjective Remarks Follow-up encephalopathy. Patient chewing his IV. Discussed with neurosurgery , patient cleared for discharge to rehab. is not at bedside. Objective Vitals Vital Signs Date Time Temp Pulse Resp B/P (MAP) Pulse Ox O2 Delivery O2 Flow Rate FiO2 10/05/17 12:39 70 10/05/17 12:31 97.7 69 18 153/84 (107) 93 10/05/17 12:09 21 10/05/17 05:15 98.8 100 20 140/89 (106) 96 10/04/17 20:40 98.0 88 19 132/80 (97) 97 10/04/17 16:00 79 10/04/17 16:00 98.0 68 18 112/66 (81) 95 I/O 10/04/17 10/04/17 10/04/17 10/05/17 10/05/17 10/05/17 07:00 15:00 23:00 07:00 15:00 23:00 Intake Total 300 ml 717 ml 100 ml 100 ml Output Total 1000 ml 300 ml 125 ml Balance -700 ml 717 ml -200 ml 100 ml -125 ml Intake Oral 300 ml 100 ml 100 ml IV Total 717 ml Output Urine Total 1000 ml 300 ml 125 ml # Voids 2 7 # Bowel Movements 0 2 1 3 Result Diagram: 10/05/1727 10/05/17626 Imaging Last Impressions Hip and Pelvis X-Ray 10/02/17 0000 Signed Impressions: Service Date/Time: Monday, October 02, 2017 09:50 - CONCLUSION: 1. Left hip arthroplasty in place. 2. 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 3. No acute fracture. Efra Barajas MD Lumbar Spine X-Ray 10/01/17 0000 Signed Impressions: Service Date/Time: Sunday, October 01, 2017 17:34 - CONCLUSION: Surgical hardware at the L1-L3 levels with kyphoplasty at L2. Toribio Callaway MD Lumbar Spine CT 09/30/17 2603 Signed Impressions: Service Date/Time: Saturday, September 30, 2017 16:34 - CONCLUSION: 1. Acute fracture in the superior aspect of the L2 vertebral body involving the entire superior aspect of the L2 vertebral body with slight retropulsion of the posterior superior aspect of the L2 vertebral body causing minimal impress on the thecal sac. 2. Degenerative change as described above. There is severe stenosis at the L4-L5 level and moderate stenosis at the L3-L4 level. Toribio Callaway MD Objective Remarks GENERAL: 87-year-old male SKIN: Warm and dry. No rash. Multiple skin tears bilateral upper lower extremities CARDIOVASCULAR: Paced. HR in the 60s. RESPIRATORY: equal chest rise. unlabored. no accessory muscle use. GASTROINTESTINAL: Abdomen soft, non-tender, nondistended. no guarding. MUSCULOSKELETAL: Extremities without clubbing, cyanosis, or edema. No obvious deformities. NEUROLOGICAL: Awake and alert. No obvious cranial nerve deficits. Motor grossly within normal limits. Five out of 5 muscle strength in the arms and legs. Normal speech. follows commands. Procedures L1 through 3 laminectomy with L2 kyphoplasty A/P Problem List: (1) L2 vertebral fracture ICD Code: S32.029A - Unspecified fracture of second lumbar vertebra, initial encounter for closed fracture Status: Acute (2) CHF (congestive heart failure) ICD Code: I50.9 - Heart failure, unspecified Status: Chronic (3) Hyperlipemia ICD Code: E78.5 - Hyperlipidemia, unspecified Status: Chronic (4) Parkinsons disease ICD Code: G20 - Parkinson's disease Status: Chronic (5) Hypertension ICD Code: I10 - Essential (primary) hypertension Status: Chronic Assessment and Plan 87yM s/p lumbar laminectomy Neuro/Psych: Toxic encephalopathy. Resolving Anxiety disorder NOS Acute pain management L2 fracture Parkinson's disease Insomnia Glaucoma dementia (per ) with aggression. Consult psychiatry. Patient has not had any narcotics and benzodiazepines for several days IV acetaminophen for 24 hours. Acetaminophen 650 mg p.o. every 6 hours as needed fever Hydrocodone/acetaminophen 5/325 tablet every 4 hours. Pain 3-5 Hydrocodone/acetaminophen 7.5/325 1 tablet every 4 hours as needed pain 6 - 10 alprazolam 0.25 mg p.o. 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 Briscoe Essential hypertension Hyperlipidemia Coronary artery disease status post stents Currently on amiodarone 200 mg p.o. daily/home medication On atorvastatin 40 mg at night for dyslipidemia On carvedilol 25 mg daily home medication for essential hypertension Holding omega-3 fish oil/cholecalciferol 1000/1001 tablet daily. Holding aspirin 81 mg daily. Resume when okay with surgery Resp: Nasal cannula to maintain saturations greater than equal to 92% Incentive spirometry while awake As needed albuterol aerosols every 2 hours as needed dyspnea GI: Constipation Hypoalbuminemia Passed swallowing evaluation Pantoprazole 40 mg daily for GI prophylaxis On polyethylene glycol 17 g daily at home for constipation. Renal: Hyperkalemia now hypokalemic, Hypernatremia and hyperchloremia which is improving Replace potassium Tele Creatinine currently within normal limits Monitor urine output Accurate I's and O's Heme: CBC within normal limits Recheck in a.m. ID: Postoperative antibiotics per neurosurgery. Mild leukocytosis likely reactive. Improving urinalysis no evidence of infection MSK: PT/OT evaluate and treat Access -Utilize peripheral IV. Prophylaxis -GI -pantoprazole -DVT -SCD/pharmacological prophylaxis per neurosurgery Discharge Planning Thank you rehab when arranged Problem Qualifiers (1) L2 vertebral fracture: Qualified Codes: S32.029A - Unspecified fracture of second lumbar vertebra, initial encounter for closed fracture (2) CHF (congestive heart failure): Qualified Codes: I50.32 - Chronic diastolic (congestive) heart failure (3) Hyperlipemia: Qualified Codes: E78.2 - Mixed hyperlipidemia (4) Hypertension: Qualified Codes: I10 - Essential (primary) hypertension Chalino Shepard MD October 05, 2017 14:19
--- NOTE | 2017-10-05 15:05 | HHI.DS ---
Discharge Summary Admission Date September 30, 2017 at 20:02 Discharge Date: October 05, 2017 Admitting Diagnosis Acute L2 fracture (1) L2 vertebral fracture ICD Code: S32.029A - Unspecified fracture of second lumbar vertebra, initial encounter for closed fracture Diagnosis: Principal Status: Acute (2) CHF (congestive heart failure) ICD Code: I50.9 - Heart failure, unspecified Diagnosis: Secondary Status: Chronic (3) Hyperlipemia ICD Code: E78.5 - Hyperlipidemia, unspecified Diagnosis: Secondary Status: Chronic (4) Parkinsons disease ICD Code: G20 - Parkinson's disease Diagnosis: Principal Status: Chronic (5) Hypertension ICD Code: I10 - Essential (primary) hypertension Diagnosis: Secondary Status: Chronic Procedures L1 through 3 laminectomy with L2 kyphoplasty Brief History - From Admission 87 y/o male with a history of Hypertension, Hyperlipidemia, CAD, CHF, Parkinson' s disease, History of prostate cancerstatus post prostatectomy presented to the ED with complaints of back pain for 2 weeks. He states 2 weeks ago he misstepped and twisted his back almost falling. He states the pain has been constant, sharp stabbing, to his lower back, 10/10, for the last 2 weeks, denies any radiation but complains of left sided weakness, worse with movement and better with rest. Denies any chest pain, sob, fever or chills. CBC/BMP: 10/05/17 0627 10/05/17 0627 Significant Findings Laboratory Tests Test 10/03/17 04:30 10/04/17 06:58 10/04/17 11:58 10/05/17 06:27 White Blood Count 12.4 TH/MM3 (4.0-11.0) 12.9 TH/MM3 (4.0-11.0) 12.7 TH/MM3 (4.0-11.0) Red Blood Count 3.15 MIL/MM3 (4.50-5.90) 3.57 MIL/MM3 (4.50-5.90) 3.63 MIL/MM3 (4.50-5.90) Hemoglobin 9.9 GM/DL (13.0-17.0) 11.1 GM/DL (13.0-17.0) 11.2 GM/DL (13.0-17.0) Hematocrit 29.4 % (39.0-51.0) 33.2 % (39.0-51.0) 33.6 % (39.0-51.0) Platelet Count 130 TH/MM3 (150-450) 130 TH/MM3 (150-450) 145 TH/MM3 (150-450) Neutrophils (%) (Auto) 72.3 % (16.0-70.0) 71.0 % (16.0-70.0) Monocytes (%) (Auto) 11.6 % (0.0-8.0) 11.8 % (0.0-8.0) 11.8 % (0.0-8.0) Neutrophils # (Auto) 9.0 TH/MM3 (1.8-7.7) 9.1 TH/MM3 (1.8-7.7) 8.4 TH/MM3 (1.8-7.7) Monocytes # (Auto) 1.4 TH/MM3 (0-0.9) 1.5 TH/MM3 (0-0.9) 1.5 TH/MM3 (0-0.9) Blood Urea Nitrogen 24 MG/DL (7-18) 22 MG/DL (7-18) 26 MG/DL (7-18) Total Protein 5.0 GM/DL (6.4-8.2) Albumin 2.5 GM/DL (3.4-5.0) Calcium Level 7.4 MG/DL (8.5-10.1) 8.4 MG/DL (8.5-10.1) 8.4 MG/DL (8.5-10.1) Sodium Level 149 MEQ/L (136-145) 148 MEQ/L (136-145) 146 MEQ/L (136-145) Potassium Level 6.1 MEQ/L (3.5-5.1) 3.2 MEQ/L (3.5-5.1) Chloride Level 119 MEQ/L (98-107) 111 MEQ/L (98-107) 112 MEQ/L (98-107) Estimat Glomerular Filtration Rate 60 ML/MIN (>89) 64 ML/MIN (>89) 56 ML/MIN (>89) Urine Ketones TRACE mg/dL (NEG) Urine Occult Blood LARGE (NEG) Urine Leukocyte Esterase TRACE (NEG) Urine RBC 24 /hpf (0-3) Urine Bacteria OCC /hpf (NONE) Urine Mucus FEW /lpf (OCC) Band Neutrophils % 7 % (0-6) Monocytes % 12 % (0-8) Neutrophils # (Manual) 9.3 TH/MM3 (1.8-7.7) Metamyelocytes 2 % (0-1) Platelet Estimate LOW (NORMAL) Imaging Last Impressions Hip and Pelvis X-Ray 10/02/17 0000 Signed Impressions: Service Date/Time: Monday, October 02, 2017 09:50 - CONCLUSION: 1. Left hip arthroplasty in place. 2. 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 3. No acute fracture. Efra Barajas MD Lumbar Spine X-Ray 10/01/17 0000 Signed Impressions: Service Date/Time: Sunday, October 01, 2017 17:34 - CONCLUSION: Surgical hardware at the L1-L3 levels with kyphoplasty at L2. Toribio Callaway MD Lumbar Spine CT 09/30/17 1552 Signed Impressions: Service Date/Time: Saturday, September 30, 2017 16:34 - CONCLUSION: 1. Acute fracture in the superior aspect of the L2 vertebral body involving the entire superior aspect of the L2 vertebral body with slight retropulsion of the posterior superior aspect of the L2 vertebral body causing minimal impress on the thecal sac. 2. Degenerative change as described above. There is severe stenosis at the L4-L5 level and moderate stenosis at the L3-L4 level. Toribio Callaway MD PE at Discharge GENERAL: 87-year-old male SKIN: Warm and dry. No rash. Multiple skin tears bilateral upper lower extremities CARDIOVASCULAR: Paced. HR in the 60s. RESPIRATORY: equal chest rise. unlabored. no accessory muscle use. GASTROINTESTINAL: Abdomen soft, non-tender, nondistended. no guarding. MUSCULOSKELETAL: Extremities without clubbing, cyanosis, or edema. No obvious deformities. NEUROLOGICAL: Awake and alert. No obvious cranial nerve deficits. Motor grossly within normal limits. Five out of 5 muscle strength in the arms and legs. Normal speech. follows commands. Hospital Course 87yM s/p lumbar laminectomy Neuro/Psych: Toxic encephalopathy. Resolving Anxiety disorder NOS Acute pain management L2 fracture Parkinson's disease Insomnia Glaucoma dementia (per ) with aggression. Consult psychiatry. Patient has not had any narcotics and benzodiazepines for several days IV acetaminophen for 24 hours. Acetaminophen 650 mg p.o. every 6 hours as needed fever Hydrocodone/acetaminophen 5/325 tablet every 4 hours. Pain 3-5 Hydrocodone/acetaminophen 7.5/325 1 tablet every 4 hours as needed pain 6 - 10 alprazolam 0.25 mg p.o. 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 Briscoe Essential hypertension Hyperlipidemia Coronary artery disease status post stents Currently on amiodarone 200 mg p.o. daily/home medication On atorvastatin 40 mg at night for dyslipidemia On carvedilol 25 mg daily home medication for essential hypertension Holding omega-3 fish oil/cholecalciferol 1000/1001 tablet daily. Holding aspirin 81 mg daily. Resume when okay with surgery Resp: Nasal cannula to maintain saturations greater than equal to 92% Incentive spirometry while awake As needed albuterol aerosols every 2 hours as needed dyspnea GI: Constipation Hypoalbuminemia Passed swallowing evaluation Pantoprazole 40 mg daily for GI prophylaxis On polyethylene glycol 17 g daily at home for constipation. Renal: Hyperkalemia now hypokalemic, Hypernatremia and hyperchloremia which is improving Replace potassium Tele Creatinine currently within normal limits Monitor urine output Accurate I's and O's Heme: CBC within normal limits Recheck in a.m. ID: Postoperative antibiotics per neurosurgery. Mild leukocytosis likely reactive. Improving urinalysis no evidence of infection MSK: PT/OT evaluate and treat Access -Utilize peripheral IV. Prophylaxis -GI -pantoprazole -DVT -SCD/pharmacological prophylaxis per neurosurgery Pt Condition on Discharge: Stable Discharge Disposition: Discharge to SNF Discharge Time: > 30 minutes Discharge Instructions DIET: Follow Instructions for: Heart Healthy Diet Activities you can perform: Regular-No Restrictions Activities to Avoid: Driving Follow up Referrals: Neurosurgery - 1 Week PCP Follow-up - 2-3 Days New Medications: Hydrocodone/Acetaminophen (Hydrocodone-Acetamin 5-325 mg) 5 Mg-325 Mg Tablet 1 TAB PO Q6H PRN for pain, #12 TAB Quetiapine (Seroquel) 25 Mg Tab 12.5 MG PO BID@09,12 for delirium, #60 TAB Ropinirole (Requip) 0.25 Mg Tab 0.25 MG PO Q8HR for PD, #30 TAB Continued Medications: Alprazolam (Alprazolam) 0.25 Mg Tab 0.25 MG PO BID PRN for ANXIETY, #6 TAB 0 Refills (This prescription has been renewed) Amiodarone (Amiodarone) 200 Mg Tab 200 MG PO DAILY for Regulate Heart Beat, #30 TAB 0 Refills Amlodipine (Amlodipine) 2.5 Mg Tab 2.5 MG PO BID for Blood Pressure Management, #30 TAB 0 Refills Atorvastatin (Lipitor) 40 Mg Tab 40 MG PO HS for Cholesterol Management, #30 TAB 0 Refills Carbidopa/Levodopa (Carbidopa-Levo 25-100 mg Odt) 25 Mg-100 Mg Tab.rapdis 1.5 TAB PO TID Carvedilol (Coreg) 25 Mg Tab 25 MG PO DAILY, #60 TAB 0 Refills Cobalamine Combinations (Vitamin T51-Ctphm Acid) 500-400 Mcg Tab 1 TAB PO DAILY for Nutritional Supplement, TAB 0 Refills Fish Oil-Cholecalciferol (Johnson-3 Fish Oil/Vitamin) 1,000-1,000 Mg Cap 1 CAP PO DAILY for Nutritional Supplement, CAP 0 Refills Furosemide (Furosemide) 40 Mg Tab 40 MG PO DAILY, #30 TAB 0 Refills Levobunolol Opth Drops (Levobunolol Opth Drops) 0.5% Drops 1-2 DROP EACH EYE DAILY for Glaucoma, #1 BOTTLE 0 Refills Multiple Vitamins W/ Minerals (Preservision Areds) 1 Tab 1 TAB PO DAILY for Nutritional Supplement, TAB 0 Refills Polyethylene Glycol 3350 Powder (Polyethylene Glycol 3350 Powder) 17 Gram Pow 17 GM PO DAILY for Constipation, #1 BOTTLE 0 Refills Chalino Shepard MD October 05, 2017 15:05
[2017-10-05] MEDS: ATORVASTATIN 40 MG TAB PO SCH (21:07)
[2017-10-06] VITALS (10 sets, daily range): BP systolic 93–161; BP diastolic 50–84; PULSE 66–70; RESP 16–20; TEMP 97.3–98.5; O2SAT 95–100
[2017-10-06] MEDS: CARBIDOPA/LEVODOPA 25 MG/100 MG TAB PO SCH ×3 (06:58→20:40)
[2017-10-06] MEDS: QUEtiapine FUMARATE 25 MG TAB PO SCH ×2 (09:59→13:03)
[2017-10-06] MEDS: AMIODARONE 200 MG TAB PO SCH (09:59)
[2017-10-06] MEDS: POTASSIUM CHLORIDE 10 MEQ CONTROLLED RELEASE TAB PO SCH (10:00)
[2017-10-06] MEDS: amLODIPine BESYLATE 5 MG TAB PO SCH ×2 (10:00→20:40)
[2017-10-06] MEDS: CARVEDILOL 12.5 MG TAB PO SCH (10:00)
[2017-10-06] MEDS: LEVOBUNOLOL HCL 0.5% OPHT SOLN 5 ML BTL EACH EYE SCH (10:06)
[2017-10-06] MEDS: SODIUM CHLORIDE 0.9% FLUSH 10 ML FLUSH IV FLUSH SCH ×2 (10:10→20:40)
--- NOTE | 2017-10-06 11:06 | HHI.NSPN ---
(Katiuska Goff) Note Status Status: Progress Note (Katiuska Goff) Interval History Interval History status post ORIF L2 fracture, L1-L3 posterolateral fixation with transpedicular screws and rods, L2 Kyphoplasty 10/01/1710/02: remains in PACU, awake, appears comfortable. nursing reports hallucinating. vitals stable, mildly hypotensive. 10/03: remains confused, hallucinating, but still oriented to name. [employer] dc'ed. 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 10/04: Remains confused, oriented to name only. Following few simple commands. 10/05: Appears comfortable but confused. moving hands purposefully. 10/06: reported to have fallen out of bed last evening. denies any back pain, moving lower extremities. appears more awake today, remains confused but oriented to name and follows simple commands. (Katiuska Goff) Labs, Micro, & Vital Signs Results Date Time Temp Pulse Resp B/P (MAP) Pulse Ox O2 Delivery O2 Flow Rate FiO2 10/06/17 08:00 97.6 70 18 157/84 (108) 99 10/06/17 04:00 97.3 66 18 161/84 (109) 100 10/06/17 00:47 69 10/06/17 00:00 97.4 69 18 154/73 (100) 95 10/05/17 20:03 97 21 10/05/17 20:00 98.3 67 18 121/59 (79) 95 10/05/17 19:55 73 10/05/17 17:36 97.3 70 18 130/65 (86) 94 10/05/17 12:39 70 10/05/17 12:31 97.7 69 18 153/84 (107) 93 10/05/17 12:09 21 Constitutional Vital Signs Date Time Temp Pulse Resp B/P (MAP) Pulse Ox O2 Delivery O2 Flow Rate FiO2 10/06/17 08:00 97.6 70 18 157/84 (108) 99 10/06/17 04:00 97.3 66 18 161/84 (109) 100 10/06/17 00:47 69 10/06/17 00:00 97.4 69 18 154/73 (100) 95 10/05/17 20:03 97 21 10/05/17 20:00 98.3 67 18 121/59 (79) 95 10/05/17 19:55 73 10/05/17 17:36 97.3 70 18 130/65 (86) 94 10/05/17 12:39 70 10/05/17 12:31 97.7 69 18 153/84 (107) 93 10/05/17 12:09 21 (Katiuska Goff) Physical Exam Mr. Diego elderly male, in no acute distress. Neuro: appearing much more alert today, remains confused but oriented to name. follows simple commands. Cranial nerve: pupils equal, round and reactive to light. facial motor appears symmetric at rest Neck is soft and supple, no meningismus or nuchal rigidity Motor: moving upper extremities and lower extremities off the bed to command Sensory: reports intact to light touch in lower extremities bilaterally Plantars neutral bilaterally, no ankle clonus Skin: warm, dry, no cyanosis Lungs clear Heart regular rate rhythm nursing reports Optifoam dressing is clean and dry, intact. (Katiuska Goff) Medications Current Medications Current Medications Medications (Trade) Dose Ordered Sig/Noe Route PRN Reason Start Time Stop Time Status Last Admin Dose Admin Sodium Chloride (NS Flush) 2 ml UNSCH PRN IV FLUSH FLUSH AFTER USING IV ACCESS 09/30/17 20:00 10/05/17 05:51 Sodium Chloride (NS Flush) 2 ml BID IV FLUSH 09/30/17 21:00 10/06/17 10:10 Naloxone HCl (Narcan Inj) 0.4 mg UNSCH PRN IV PUSH SEE LABEL COMMENTS 09/30/17 20:00 Magnesium Hydroxide (Milk Of Magnesia Liq) 30 ml Q12H PRN PO Mild constipation 09/30/17 20:00 Sennosides (Senokot) 17.2 mg Q12H PRN PO Moderate constipation 09/30/17 20:00 Bisacodyl (Dulcolax Supp) 10 mg DAILY PRN RECTAL SEVERE CONSITIPATION 09/30/17 20:00 Lactulose (Lactulose Liq) 30 ml DAILY PRN PO SEVERE CONSITIPATION 09/30/17 20:00 Alprazolam (Xanax) 0.25 mg BID PRN PO ANXIETY 09/30/17 23:30 10/02/17 06:34 Amiodarone HCl (Cordarone) 200 mg DAILY PO 10/01/17 09:00 10/06/17 09:59 Amlodipine Besylate (Norvasc) 2.5 mg BID PO 09/30/17 23:30 10/06/17 10:00 Atorvastatin Calcium (Lipitor) 40 mg HS PO 10/01/17 21:00 10/05/17 21:07 Carvedilol (Coreg) 25 mg DAILY PO 10/01/17 09:00 10/06/17 10:00 Levobunolol HCl (Betagan Liquifilm 0.5%) 2 drop DAILY EACH EYE 10/01/17 09:00 10/06/17 10:06 Temazepam (Restoril) 15 mg HS PRN PO INSOMNIA 09/30/17 23:30 10/04/17 20:56 Acetaminophen (Tylenol) 650 mg Q6H PRN PO headache/fever/pain1-2 10/01/17 14:45 Acetaminophen/ Hydrocodone Bitart ([place] 5-325 Mg) 1 tab Q4H PRN PO PAIN SCALE 3 TO 5 10/01/17 14:45 10/02/17 12:33 Acetaminophen/ Hydrocodone Bitart ([place] 7.5-325 Mg) 1 tab Q4H PRN PO PAIN SCALE 6 TO 10 10/01/17 14:45 Acetaminophen (Tylenol) 650 mg Q4H PRN PO TEMPERATURE > 101.5 F 10/01/17 17:45 Albuterol Sulfate (Albuterol Neb) 2.5 mg Q2HR NEB PRN NEB Dyspnea 10/01/17 21:30 Hydralazine HCl (Apresoline Inj) 10 mg Q1HR PRN IV PUSH SBP>160, DBP>90 10/01/17 22:00 Ropinirole HCl (Requip) 0.25 mg Q8HR PO 10/03/17 06:00 10/06/17 06:57 Ondansetron HCl (Zofran Odt) 4 mg Q6H PRN SL NAUSEA OR VOMITING 10/02/17 22:45 Dextrose (D50w (Vial) Inj) 50 ml UNSCH PRN IV PUSH HYPOGLYCEMIA-SEE COMMENTS 10/03/17 08:00 Glucagon (Glucagon Inj) 1 mg UNSCH PRN OTHER HYPOGLYCEMIA-SEE COMMENTS 10/03/17 08:00 Enalaprilat (Vasotec Inj) 1.25 mg Q6H PRN IV PUSH SBP> OR = 180, DBP> OR = 100 10/03/17 10:30 Miscellaneous Information 1 Q7D T-DERMAL 10/10/17 12:00 Carbidopa/Levodopa (Sinemet 25-100 Mg) 1.5 tab Q8HR PO 10/03/17 14:45 10/06/17 06:58 Potassium Chloride (KCl) 30 meq DAILY PO 10/04/17 09:30 10/06/17 10:00 Quetiapine Fumarate (SEROquel) 12.5 mg BID@09,12 PO 10/05/17 09:00 10/06/17 09:59 (Katiuska Goff) Medical Decision Making MDM Remarks 87 y/o male with acute unstable L2 fracture, status post ORIF L2 fracture, L1- L3 posterolateral fixation with transpedicular screws and rods, L2 Kyphoplasty postoperative confusion, hallucination, stable (Katiuska Goff) Plan Plan Remarks f/u lumbar spine xrays today, if stable, clear to dc SNF from [facility] standpoint, Keep Optifoam dressing on, can be removed 10/08/17 TLSO when out of bed close monitoring due to fall risk (Katiuska Goff) Attending Statement The exam, history, and the medical decision-making described in the above note were completed with the assistance of the mid-level provider. I reviewed and agree with the findings presented. I attest that I had a [id number] encounter with the patient on the same day, and personally performed and documented my assessment and findings in the medical record. (Milo Shafer MD) Katiuska Goff October 06, 2017 11:06 Milo Shafer MD October 06, 2017 11:58
--- NOTE | 2017-10-06 11:49 | RADRPT ---
EXAM DATE/TIME: 10/06/2017 11:07 [facility] COMPARISON: SPINE LUMBAR LATERAL ONLY, October 01, 2017, 17:34. SPINE LUMBAR LTD (AP & LAT), October 01, 2017, 11:00. INDICATIONS : Evaluate fracture and hardware placement. MEDICAL HISTORY : Hypertension. Congestive heart failure. Myocardial infarction. SURGICAL HISTORY : Cholecystectomy. CABG. Coronary artery stent. Pacemaker. ENCOUNTER: Subsequent ACUITY: 4 - 6 days PAIN SCORE: 0/10 LOCATION: Lumbar spine. FINDINGS: AP and lateral views of the lumbar spine demonstrates surgical hardware traversing L1-L3 vertebral carola dies with kyphoplasty material identified within the L2 vertebral body. There is improved anatomic al ignment through this region. Improved vertebral body height at the level of L2. There is persistent m inimal anterolisthesis of L4 on L5. The disc spaces are relatively well-preserved. The bones are diff usely osteopenic. Left hip or stasis is present. CONCLUSION: Interval kyphoplasty and fixation of the upper lumbar spine with improved anatomic alignment and impr jam vertebral body height at the level of L2. Yarely Lacy MD on October 06, 2017 at 11:44 Board Certified Radiologist. This report was verified electronically.
--- NOTE | 2017-10-06 17:34 | HHI.PR ---
Subjective Remarks Follow up for L2 fracture, status post ORIF L2 fracture. Patient is resting in bed, family at bedside. No acute concerns. He fell last night. However, he has no focal neurological deficits. Objective Vitals Vital Signs Date Time Temp Pulse Resp B/P (MAP) Pulse Ox O2 Delivery O2 Flow Rate FiO2 10/06/17 16:14 97.9 70 18 93/50 (64) 95 10/06/17 14:02 70 10/06/17 08:00 97.6 70 18 157/84 (108) 99 10/06/17 04:00 97.3 66 18 161/84 (109) 100 10/06/17 00:47 69 10/06/17 00:00 97.4 69 18 154/73 (100) 95 10/05/17 20:03 97 21 10/05/17 20:00 98.3 67 18 121/59 (79) 95 10/05/17 19:55 73 10/05/17 17:36 97.3 70 18 130/65 (86) 94 I/O 10/05/17 10/05/17 10/05/17 10/06/17 10/06/17 10/06/17 06:59 14:59 22:59 06:59 14:59 22:59 Intake Total 100 ml 100 ml Output Total 125 ml 1 ml 125 ml Balance 100 ml -125 ml 100 ml -1 ml -125 ml Intake Oral 100 ml 100 ml Output Urine Total 125 ml 125 ml Stool Total 1 ml # Voids 7 3 # Bowel Movements 3 Result Diagram: 10/05/17 0627 10/05/17 0627 Imaging Last Impressions Lumbar Spine X-Ray 10/06/17 0000 Signed Impressions: Service Date/Time: Friday, October 06, 2017 11:07 - CONCLUSION: Interval kyphoplasty and fixation of the upper lumbar spine with improved anatomic alignment and improved vertebral body height at the level of L2. Yarely Lacy MD Hip and Pelvis X-Ray 10/02/17 0000 Signed Impressions: Service Date/Time: Monday, October 02, 2017 09:50 - CONCLUSION: 1. Left hip arthroplasty in place. 2. 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 3. No acute fracture. Efra Barajas MD Lumbar Spine CT 09/30/17 0832 Signed Impressions: Service Date/Time: Saturday, September 30, 2017 16:34 - CONCLUSION: 1. Acute fracture in the superior aspect of the L2 vertebral body involving the entire superior aspect of the L2 vertebral body with slight retropulsion of the posterior superior aspect of the L2 vertebral body causing minimal impress on the thecal sac. 2. Degenerative change as described above. There is severe stenosis at the L4-L5 level and moderate stenosis at the L3-L4 level. Toribio Callaway MD Objective Remarks GENERAL: Alert, NAD. SKIN: Warm and dry. HEAD: Normocephalic. EYES: No scleral icterus. No injection or drainage. NECK: Supple, trachea midline. No JVD or lymphadenopathy. CARDIOVASCULAR: Regular rate and rhythm without murmurs, gallops, or rubs. RESPIRATORY: Breath sounds equal bilaterally. No accessory muscle use. GASTROINTESTINAL: Abdomen soft, non-tender, nondistended. MUSCULOSKELETAL: No cyanosis, or edema. BACK: Nontender without obvious deformity. No CVA tenderness. Neuro: No focal neurological deficits post fall. Procedures L1 through 3 laminectomy with L2 kyphoplasty A/P Problem List: (1) L2 vertebral fracture ICD Code: S32.029A - Unspecified fracture of second lumbar vertebra, initial encounter for closed fracture Status: Acute (2) CHF (congestive heart failure) ICD Code: I50.9 - Heart failure, unspecified Status: Chronic (3) Hyperlipemia ICD Code: E78.5 - Hyperlipidemia, unspecified Status: Chronic (4) Parkinsons disease ICD Code: G20 - Parkinson's disease Status: Chronic (5) Hypertension ICD Code: I10 - Essential (primary) hypertension Status: Chronic Assessment and Plan Mr. Diego is a pleasant 87-year-old male with a history of Hypertension, Hyperlipidemia, CAD, CHF, Parkinson's disease, History of prostate cancerstatus post prostatectomy presented to the ED with complaints of back pain for 2 weeks prior to this admission on 09/30/2017. CT show an unstable L2 fracture. Patient underwent surgical intervention on 10/01/2017. Patient was briefly admitted to critical care. He had some confusion and hallucination post surgery which resolved gradually. Patient was transferred to the floor 1 day after ICU admission on 10/01/2017. Neurology was consulted for Parkinson's disease. Neurology recommended to continue Sinemet 25/100 one and half tablet 3 times daily. Neurology also recommended Requip 0.25 mg 3 times daily with an intention to titrate it up over the next several weeks. Patient continued to receive physical therapy in the hospital. Physical therapy recommended rehab placement. Neurosurgery cleared for discharge to rehab. Unstable L2 fracture -Status post ORIF L2 fracture, L1-L3 posterolateral fixation with transpedicular screws and rods, L2 kyphoplasty on 10/01/2017. -Postop confusion and hallucination resolved. -After fall, Neurosurgery obtained Lumbar x-rays on 10/06/2017 which shows surgical changes and anatomic alignment and improved vertebral body height at the level of L2. Parkinson's disease Anxiety, agitation Insomnia -continue carbidopa levodopa 25/100 mg 1.5 tablets every 8 hours. -Continue ropinirole 0.25 mg every 8 hours. -Continue Seroquel 12.5 mg p.o. twice daily. Patient has been pleasant and cooperative. No sign of agitation. -Continue alprazolam 0.25 mg p.o. twice daily as needed -Continue temazepam 50 mg p.o. nightly as needed Coronary artery disease status post CABG 4 Aortic valve replacement Hypertension Hyperlipidemia -Currently on amiodarone 200 mg daily -Continue atorvastatin 40 mg, carvedilol 25 mg, amlodipine 2.5 mg twice daily Full code. SCDs. Problem Qualifiers (1) L2 vertebral fracture: Qualified Codes: S32.029A - Unspecified fracture of second lumbar vertebra, initial encounter for closed fracture (2) CHF (congestive heart failure): Qualified Codes: I50.32 - Chronic diastolic (congestive) heart failure (3) Hyperlipemia: Qualified Codes: E78.2 - Mixed hyperlipidemia (4) Hypertension: Qualified Codes: I10 - Essential (primary) hypertension Bg Colin DO October 06, 2017 5:33 pm
[2017-10-06] MEDS: ATORVASTATIN 40 MG TAB PO SCH (20:39)
[2017-10-07] VITALS (7 sets, daily range): BP systolic 109–150; BP diastolic 68–96; PULSE 62–72; RESP 16–18; TEMP 97.3–98.1; O2SAT 93–97
[2017-10-07] MEDS: CARBIDOPA/LEVODOPA 25 MG/100 MG TAB PO SCH ×3 (05:14→21:34)
[2017-10-07] MEDS: POTASSIUM CHLORIDE 10 MEQ CONTROLLED RELEASE TAB PO SCH (08:17)
[2017-10-07] MEDS: SODIUM CHLORIDE 0.9% FLUSH 10 ML FLUSH IV FLUSH SCH ×2 (08:18→21:44)
[2017-10-07] MEDS: AMIODARONE 200 MG TAB PO SCH (08:18)
[2017-10-07] MEDS: amLODIPine BESYLATE 5 MG TAB PO SCH ×2 (08:18→21:33)
[2017-10-07] MEDS: QUEtiapine FUMARATE 25 MG TAB PO SCH ×2 (08:18→12:59)
[2017-10-07] MEDS: CARVEDILOL 12.5 MG TAB PO SCH (08:18)
[2017-10-07] MEDS: LEVOBUNOLOL HCL 0.5% OPHT SOLN 5 ML BTL EACH EYE SCH (08:23)
--- NOTE | 2017-10-07 13:29 | HHI.PR ---
Subjective Remarks Follow up for L2 fracture, status post ORIF L2 fracture. Patient is currently doing well. He is pleasant and cooperative. No anxiety, aggressive behavior or hallucination. No focal neurological deficits. Objective Vitals Vital Signs Date Time Temp Pulse Resp B/P (MAP) Pulse Ox O2 Delivery O2 Flow Rate FiO2 10/07/17 10:14 95 10/07/17 08:00 97.7 70 16 150/68 (95) 95 10/07/17 08:00 70 10/07/17 05:09 97.3 70 18 133/70 (91) 96 10/07/17 00:00 70 10/06/17 23:41 98.0 70 16 133/68 (89) 96 10/06/17 21:24 99 10/06/17 20:00 70 10/06/17 19:41 98.5 70 20 145/77 (99) 98 10/06/17 16:14 97.9 70 18 93/50 (64) 95 10/06/17 14:02 70 I/O 10/06/17 10/06/17 10/06/17 10/07/17 10/07/17 10/07/17 07:00 15:00 23:00 07:00 15:00 23:00 Output Total 1 ml 125 ml 125 ml 400 ml Balance -1 ml -125 ml -125 ml -400 ml Output Urine Total 125 ml 125 ml 400 ml Stool Total 1 ml # Voids 3 Result Diagram: 10/05/17 0627 10/05/17 0627 Imaging Last Impressions Lumbar Spine X-Ray 10/06/17 0000 Signed Impressions: Service Date/Time: Friday, October 06, 2017 11:07 - CONCLUSION: Interval kyphoplasty and fixation of the upper lumbar spine with improved anatomic alignment and improved vertebral body height at the level of L2. Yarely Lacy MD Hip and Pelvis X-Ray 10/02/17 0000 Signed Impressions: Service Date/Time: Monday, October 02, 2017 09:50 - CONCLUSION: 1. Left hip arthroplasty in place. 2. 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 3. No acute fracture. Efra Barajas MD Lumbar Spine CT 09/30/17 1552 Signed Impressions: Service Date/Time: Saturday, September 30, 2017 16:34 - CONCLUSION: 1. Acute fracture in the superior aspect of the L2 vertebral body involving the entire superior aspect of the L2 vertebral body with slight retropulsion of the posterior superior aspect of the L2 vertebral body causing minimal impress on the thecal sac. 2. Degenerative change as described above. There is severe stenosis at the L4-L5 level and moderate stenosis at the L3-L4 level. Toribio Callaway MD Objective Remarks GENERAL: Alert, NAD. SKIN: Warm and dry. HEAD: Normocephalic. EYES: No scleral icterus. No injection or drainage. NECK: Supple, trachea midline. No JVD or lymphadenopathy. CARDIOVASCULAR: Regular rate and rhythm without murmurs, gallops, or rubs. RESPIRATORY: Breath sounds equal bilaterally. No accessory muscle use. GASTROINTESTINAL: Abdomen soft, non-tender, nondistended. MUSCULOSKELETAL: No cyanosis, or edema. BACK: Nontender without obvious deformity. No CVA tenderness. Neuro: No focal neurological deficits post fall. Procedures L1 through 3 laminectomy with L2 kyphoplasty A/P Problem List: (1) L2 vertebral fracture ICD Code: S32.029A - Unspecified fracture of second lumbar vertebra, initial encounter for closed fracture Status: Acute (2) CHF (congestive heart failure) ICD Code: I50.9 - Heart failure, unspecified Status: Chronic (3) Hyperlipemia ICD Code: E78.5 - Hyperlipidemia, unspecified Status: Chronic (4) Parkinsons disease ICD Code: G20 - Parkinson's disease Status: Chronic (5) Hypertension ICD Code: I10 - Essential (primary) hypertension Status: Chronic Assessment and Plan Mr. Diego is a pleasant 87-year-old male with a history of Hypertension, Hyperlipidemia, CAD, CHF, Parkinson's disease, History of prostate cancerstatus post prostatectomy presented to the ED with complaints of back pain for 2 weeks prior to this admission on 09/30/2017. CT show an unstable L2 fracture. Patient underwent surgical intervention on 10/01/2017. Patient was briefly admitted to critical care. He had some confusion and hallucination post surgery which resolved gradually. Patient was transferred to the floor 1 day after ICU admission on 10/01/2017. Neurology was consulted for Parkinson's disease. Neurology recommended to continue Sinemet 25/100 one and half tablet 3 times daily. Neurology also recommended Requip 0.25 mg 3 times daily with an intention to titrate it up over the next several weeks. Patient continued to receive physical therapy in the hospital. Physical therapy recommended rehab placement. Neurosurgery cleared for discharge to rehab. Unstable L2 fracture -Status post ORIF L2 fracture, L1-L3 posterolateral fixation with transpedicular screws and rods, L2 kyphoplasty on 10/01/2017. -Postop confusion and hallucination resolved. -After fall, Neurosurgery obtained Lumbar x-rays on 10/06/2017 which shows surgical changes and anatomic alignment and improved vertebral body height at the level of L2. -Patient remains in hemodynamically stable condition. No acute concerns overnight. No focal neurological deficits. Parkinson's disease Anxiety, agitation Insomnia -continue carbidopa levodopa 25/100 mg 1.5 tablets every 8 hours. -Continue ropinirole 0.25 mg every 8 hours. -Continue Seroquel 12.5 mg p.o. twice daily. Patient has been pleasant and cooperative. No sign of agitation. -Continue alprazolam 0.25 mg p.o. twice daily as needed -Continue temazepam 50 mg p.o. 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 Will advise patient's family to discuss with the career coach regarding the need for amiodarone. -Continue atorvastatin 40 mg, carvedilol 25 mg, amlodipine 2.5 mg twice daily Full code. SCDs. Discharge plan: Patient can be discharged to SNF today. Problem Qualifiers (1) L2 vertebral fracture: Qualified Codes: S32.029A - Unspecified fracture of second lumbar vertebra, initial encounter for closed fracture (2) CHF (congestive heart failure): Qualified Codes: I50.32 - Chronic diastolic (congestive) heart failure (3) Hyperlipemia: Qualified Codes: E78.2 - Mixed hyperlipidemia (4) Hypertension: Qualified Codes: I10 - Essential (primary) hypertension Bg Colin DO October 07, 2017 1:28 pm
--- NOTE | 2017-10-07 14:28 | HHI.NSPN ---
(Katiuska Goff) Note Status Status: Progress Note (Katiuska Goff) Interval History Interval History status post ORIF L2 fracture, L1-L3 posterolateral fixation with transpedicular screws and rods, L2 Kyphoplasty 10/01/1710/02: remains in PACU, awake, appears comfortable. nursing reports hallucinating. vitals stable, mildly hypotensive. 10/03: remains confused, hallucinating, but still oriented to name. DUNGEON MASTER dc'ed. 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 10/04: Remains confused, oriented to name only. Following few simple commands. 10/05: Appears comfortable but confused. moving hands purposefully. 10/06: reported to have fallen out of bed last evening. denies any back pain, moving lower extremities. appears more awake today, remains confused but oriented to name and follows simple commands. 10/07: Son at bedside, reports patient's mentation is slowly improving. Discharge planning to SNF. Follow-up lumbar x-rays yesterday with stable findings. (Katiuska Goff) Labs, Micro, & Vital Signs Results Date Time Temp Pulse Resp B/P (MAP) Pulse Ox O2 Delivery O2 Flow Rate FiO2 10/07/17 12:00 97.8 69 16 148/68 (94) 96 10/07/17 10:14 95 10/07/17 08:00 97.7 70 16 150/68 (95) 95 10/07/17 08:00 70 10/07/17 05:09 97.3 70 18 133/70 (91) 96 10/07/17 00:00 70 10/06/17 23:41 98.0 70 16 133/68 (89) 96 10/06/17 21:24 99 10/06/17 20:00 70 10/06/17 19:41 98.5 70 20 145/77 (99) 98 10/06/17 16:14 97.9 70 18 93/50 (64) 95 Constitutional Vital Signs Date Time Temp Pulse Resp B/P (MAP) Pulse Ox O2 Delivery O2 Flow Rate FiO2 10/07/17 12:00 97.8 69 16 148/68 (94) 96 10/07/17 10:14 95 10/07/17 08:00 97.7 70 16 150/68 (95) 95 10/07/17 08:00 70 10/07/17 05:09 97.3 70 18 133/70 (91) 96 10/07/17 00:00 70 10/06/17 23:41 98.0 70 16 133/68 (89) 96 10/06/17 21:24 99 10/06/17 20:00 70 10/06/17 19:41 98.5 70 20 145/77 (99) 98 10/06/17 16:14 97.9 70 18 93/50 (64) 95 (Katiuska Goff) Physical Exam Mr. Diego elderly male, in no acute distress. Neuro: appearing much more alert today, remains confused but oriented to name. follows simple commands. Cranial nerve: pupils equal, round and reactive to light. facial motor appears symmetric at rest Neck is soft and supple, no meningismus or nuchal rigidity Motor: moving upper extremities and lower extremities off the bed to command Sensory: reports intact to light touch in lower extremities bilaterally Plantars neutral bilaterally, no ankle clonus Skin: warm, dry, no cyanosis Lungs clear Heart regular rate rhythm nursing reports Optifoam dressing is clean and dry, intact. (Katiuska Goff) Medications Current Medications Current Medications Medications (Trade) Dose Ordered Sig/Noe Route PRN Reason Start Time Stop Time Status Last Admin Dose Admin Sodium Chloride (NS Flush) 2 ml UNSCH PRN IV FLUSH FLUSH AFTER USING IV ACCESS 09/30/17 20:00 10/05/17 05:51 Sodium Chloride (NS Flush) 2 ml BID IV FLUSH 09/30/17 21:00 10/07/17 08:18 Naloxone HCl (Narcan Inj) 0.4 mg UNSCH PRN IV PUSH SEE LABEL COMMENTS 09/30/17 20:00 Magnesium Hydroxide (Milk Of Magnesia Liq) 30 ml Q12H PRN PO Mild constipation 09/30/17 20:00 Sennosides (Senokot) 17.2 mg Q12H PRN PO Moderate constipation 09/30/17 20:00 Bisacodyl (Dulcolax Supp) 10 mg DAILY PRN RECTAL SEVERE CONSITIPATION 09/30/17 20:00 Lactulose (Lactulose Liq) 30 ml DAILY PRN PO SEVERE CONSITIPATION 09/30/17 20:00 Alprazolam (Xanax) 0.25 mg BID PRN PO ANXIETY 09/30/17 23:30 10/02/17 06:34 Amiodarone HCl (Cordarone) 200 mg DAILY PO 10/01/17 09:00 10/07/17 08:18 Amlodipine Besylate (Norvasc) 2.5 mg BID PO 09/30/17 23:30 10/07/17 08:18 Atorvastatin Calcium (Lipitor) 40 mg HS PO 10/01/17 21:00 10/06/17 20:39 Carvedilol (Coreg) 25 mg DAILY PO 10/01/17 09:00 10/07/17 08:18 Levobunolol HCl (Betagan Liquifilm 0.5%) 2 drop DAILY EACH EYE 10/01/17 09:00 10/07/17 08:23 Temazepam (Restoril) 15 mg HS PRN PO INSOMNIA 09/30/17 23:30 10/04/17 20:56 Acetaminophen (Tylenol) 650 mg Q6H PRN PO headache/fever/pain1-2 10/01/17 14:45 Acetaminophen/ Hydrocodone Bitart ([place] 5-325 Mg) 1 tab Q4H PRN PO PAIN SCALE 3 TO 5 10/01/17 14:45 10/02/17 12:33 Acetaminophen/ Hydrocodone Bitart ([place] 7.5-325 Mg) 1 tab Q4H PRN PO PAIN SCALE 6 TO 10 10/01/17 14:45 Acetaminophen (Tylenol) 650 mg Q4H PRN PO TEMPERATURE > 101.5 F 10/01/17 17:45 Albuterol Sulfate (Albuterol Neb) 2.5 mg Q2HR NEB PRN NEB Dyspnea 10/01/17 21:30 Hydralazine HCl (Apresoline Inj) 10 mg Q1HR PRN IV PUSH SBP>160, DBP>90 10/01/17 22:00 Ropinirole HCl (Requip) 0.25 mg Q8HR PO 10/03/17 06:00 10/07/17 12:59 Ondansetron HCl (Zofran Odt) 4 mg Q6H PRN SL NAUSEA OR VOMITING 10/02/17 22:45 Dextrose (D50w (Vial) Inj) 50 ml UNSCH PRN IV PUSH HYPOGLYCEMIA-SEE COMMENTS 10/03/17 08:00 Glucagon (Glucagon Inj) 1 mg UNSCH PRN OTHER HYPOGLYCEMIA-SEE COMMENTS 10/03/17 08:00 Enalaprilat (Vasotec Inj) 1.25 mg Q6H PRN IV PUSH SBP> OR = 180, DBP> OR = 100 10/03/17 10:30 Miscellaneous Information 1 Q7D T-DERMAL 10/10/17 12:00 Carbidopa/Levodopa (Sinemet 25-100 Mg) 1.5 tab Q8HR PO 10/03/17 14:45 10/07/17 12:59 Quetiapine Fumarate (SEROquel) 12.5 mg BID@09,12 PO 10/05/17 09:00 10/07/17 12:59 (Katiuska Goff) Medical Decision Making MDM Remarks 87 y/o male with acute unstable L2 fracture, status post ORIF L2 fracture, L1- L3 posterolateral fixation with transpedicular screws and rods, L2 Kyphoplasty postoperative confusion, hallucination, stable, mentation improving (Katiuska Goff) Plan Plan Remarks Keep Optifoam dressing on, can be removed 10/08/17 and transition to [place] dressings which needs to be changed daily, continue wound monitoring TLSO when out of bed, continue PT, encouraged to continue mobilizing with assistance close monitoring due to fall risk clear to discharge to rehab from neurosurgery standpoint when arrangements made (Katiuska Goff) Attending Statement The exam, history, and the medical decision-making described in the above note were completed with the assistance of the mid-level provider. I reviewed and agree with the findings presented. I attest that I had a [id number] encounter with the patient on the same day, and personally performed and documented my assessment and findings in the medical record. (Milo Shafer MD) Katiuska Goff October 07, 2017 14:28 Milo Shafer MD October 08, 2017 16:20
[2017-10-07] MEDS ORDERED: K-TA10TA PO (14:50)
[2017-10-07] MEDS: ATORVASTATIN 40 MG TAB PO SCH (21:34)
[2017-10-08] VITALS (10 sets, daily range): BP systolic 110–149; BP diastolic 57–82; PULSE 69–72; RESP 16–18; TEMP 97.4–98; O2SAT 93–95
[2017-10-08] MEDS: CARBIDOPA/LEVODOPA 25 MG/100 MG TAB PO SCH ×3 (05:10→22:00)
[2017-10-08] MEDS: AMIODARONE 200 MG TAB PO SCH ×2 (08:29→08:39)
[2017-10-08] MEDS: CARVEDILOL 12.5 MG TAB PO SCH ×2 (08:29→08:39)
[2017-10-08] MEDS: SODIUM CHLORIDE 0.9% FLUSH 10 ML FLUSH IV FLUSH SCH ×2 (08:29→21:00)
[2017-10-08] MEDS: QUEtiapine FUMARATE 25 MG TAB PO SCH ×3 (08:29→12:00)
[2017-10-08] MEDS: LEVOBUNOLOL HCL 0.5% OPHT SOLN 5 ML BTL EACH EYE SCH (08:29)
[2017-10-08] MEDS: amLODIPine BESYLATE 5 MG TAB PO SCH ×3 (08:30→21:00)
[2017-10-08 13:49] LABS: BASOPHIL % 0.4 % (0.0-2.0); EOSINOPHIL # 0.4 TH/MM3 (0-0.4); EOSINOPHIL % 3.7 % (0.0-4.0); HEMATOCRIT 33.5 % (39.0-51.0); HEMOGLOBIN 11.1 GM/DL (13.0-17.0); LYMPH % 15.5 % (9.0-44.0); LYMPHOCYTE # 1.8 TH/MM3 (1.0-4.8); MEAN CELL VOLUME 94.1 FL (80.0-100.0); MEAN CORPUSCULAR HEMOGLOBIN 31.2 PG (27.0-34.0); MEAN CORPUSCULAR HGB CONC 33.1 % (32.0-36.0); MEAN PLATELET VOLUME 8.4 FL (7.0-11.0); MONO % 11.5 % (0.0-8.0); MONOCYTE # 1.3 TH/MM3 (0-0.9); NEUT % 68.9 % (16.0-70.0); PLATELET COUNT 122 TH/MM3 (150-450); RED BLOOD COUNT 3.56 MIL/MM3 (4.50-5.90); RED CELL DISTRIBUTION WIDTH 16.5 % (11.6-17.2); WHITE BLOOD COUNT 11.7 TH/MM3 (4.0-11.0)
[2017-10-08 14:16] LABS: BICARBONATE 27.5 MEQ/L (21.0-32.0); CALCIUM 8.4 MG/DL (8.5-10.1); CREATININE 1.28 MG/DL (0.60-1.30)
[2017-10-08 16:08] LABS: BANDS 2 % (0-6); CORRECTED NUCLEATED RBC 1 /100 WBC (0-0); LYMPHOCYTES 20 % (9-44); MONOCYTES 8 % (0-8); NUCLEATED RED BLOOD CELL 1 (0-0); POLYS (SEG NEUTROPHILS) 64 % (16-70); PROMYELOCYTES 2 % (0-0)
--- NOTE | 2017-10-08 18:44 | HHI.PR ---
Subjective Remarks Follow up for L2 fracture, status post ORIF L2 fracture. Patient is doing well. He alert, oriented x 3 but his conversation shows confusion. He tries to get out of bed and go home which is '10 minutes from here'. No fever, chills. His confusion improved after family members arrived in his room. Objective Vitals Vital Signs Date Time Temp Pulse Resp B/P (MAP) Pulse Ox O2 Delivery O2 Flow Rate FiO2 10/08/17 16:29 72 10/08/17 16:00 97.6 71 16 141/67 (91) 95 10/08/17 13:00 70 10/08/17 12:00 97.4 70 16 110/57 (74) 95 10/08/17 09:50 70 10/08/17 08:00 97.5 69 16 149/78 (101) 94 10/08/17 06:36 98.0 70 18 132/69 (90) 93 10/08/17 00:00 70 10/08/17 00:00 97.8 70 18 138/82 (100) 94 10/07/17 20:00 98.1 70 18 130/69 (89) 93 10/07/17 20:00 72 I/O 10/07/17 10/07/17 10/07/17 10/08/17 10/08/17 10/08/17 07:00 15:00 23:00 07:00 15:00 23:00 Output Total 400 ml 200 ml Balance -400 ml -200 ml Output Urine Total 400 ml 200 ml # Voids 1 2 # Bowel Movements 0 1 Result Diagram: 10/08/17 1256 10/08/17 1256 Objective Remarks GENERAL: Alert, NAD. SKIN: Warm and dry. HEAD: Normocephalic. EYES: No scleral icterus. No injection or drainage. NECK: Supple, trachea midline. No JVD or lymphadenopathy. CARDIOVASCULAR: Regular rate and rhythm without murmurs, gallops, or rubs. RESPIRATORY: Breath sounds equal bilaterally. No accessory muscle use. GASTROINTESTINAL: Abdomen soft, non-tender, nondistended. MUSCULOSKELETAL: No cyanosis, or edema. BACK: Nontender without obvious deformity. No CVA tenderness. Neuro: No focal neurological deficits post fall. Procedures L1 through 3 laminectomy with L2 kyphoplasty A/P Problem List: (1) L2 vertebral fracture ICD Code: S32.029A - Unspecified fracture of second lumbar vertebra, initial encounter for closed fracture Status: Acute (2) CHF (congestive heart failure) ICD Code: I50.9 - Heart failure, unspecified Status: Chronic (3) Hyperlipemia ICD Code: E78.5 - Hyperlipidemia, unspecified Status: Chronic (4) Parkinsons disease ICD Code: G20 - Parkinson's disease Status: Chronic (5) Hypertension ICD Code: I10 - Essential (primary) hypertension Status: Chronic Assessment and Plan Mr. Diego is a pleasant 87-year-old male with a history of Hypertension, Hyperlipidemia, CAD, CHF, Parkinson's disease, History of prostate cancerstatus post prostatectomy presented to the ED with complaints of back pain for 2 weeks prior to this admission on 09/30/2017. CT show an unstable L2 fracture. Patient underwent surgical intervention on 10/01/2017. Patient was briefly admitted to critical care. He had some confusion and hallucination post surgery which resolved gradually. Patient was transferred to the floor 1 day after ICU admission on 10/01/2017. Neurology was consulted for Parkinson's disease. Neurology recommended to continue Sinemet 25/100 one and half tablet 3 times daily. Neurology also recommended Requip 0.25 mg 3 times daily with an intention to titrate it up over the next several weeks. Patient continued to receive physical therapy in the hospital. Physical therapy recommended rehab placement. Neurosurgery cleared for discharge to rehab. Unstable L2 fracture -Status post ORIF L2 fracture, L1-L3 posterolateral fixation with transpedicular screws and rods, L2 kyphoplasty on 10/01/2017. -Postop confusion and hallucination resolved. -After fall, Neurosurgery obtained Lumbar x-rays on 10/06/2017 which shows surgical changes and anatomic alignment and improved vertebral body height at the level of L2. -Patient remains in hemodynamically stable condition. No acute concerns overnight. No focal neurological deficits. Parkinson's disease Anxiety, agitation Insomnia -continue carbidopa levodopa 25/100 mg 1.5 tablets every 8 hours. -Continue ropinirole 0.25 mg every 8 hours. -Continue Seroquel 12.5 mg p.o. twice daily. Patient has been pleasant and cooperative. No sign of agitation. -Continue alprazolam 0.25 mg p.o. twice daily as needed -Continue temazepam 50 mg p.o. nightly as needed -Confusion noted today 10/08/2017 resolved after family arrived. 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 Will advise patient's family to discuss with the lease broker regarding the need for amiodarone. -Continue atorvastatin 40 mg, carvedilol 25 mg, amlodipine 2.5 mg twice daily Full code. SCDs. Discharge plan: Patient can be discharged to SNF when arrangements made. Problem Qualifiers (1) L2 vertebral fracture: Qualified Codes: S32.029A - Unspecified fracture of second lumbar vertebra, initial encounter for closed fracture (2) CHF (congestive heart failure): Qualified Codes: I50.32 - Chronic diastolic (congestive) heart failure (3) Hyperlipemia: Qualified Codes: E78.2 - Mixed hyperlipidemia (4) Hypertension: Qualified Codes: I10 - Essential (primary) hypertension Bg Colin DO October 08, 2017 18:44
[2017-10-08] MEDS: ATORVASTATIN 40 MG TAB PO SCH (21:00)
[2017-10-09] VITALS: BP 168/88; PULSE 70; PULSE 72; RESP 22; TEMP 98; O2SAT 92
[2017-10-09 04:00] VITALS: BP 182/93; PULSE 70; RESP 19; TEMP 97.9; O2SAT 93
[2017-10-09] MEDS: CARBIDOPA/LEVODOPA 25 MG/100 MG TAB PO SCH ×2 (05:20→12:29)
[2017-10-09 07:43] VITALS: BP 155/78; PULSE 72; RESP 18; TEMP 98.1; O2SAT 93
[2017-10-09] MEDS: AMIODARONE 200 MG TAB PO SCH (08:15)
[2017-10-09] MEDS: QUEtiapine FUMARATE 25 MG TAB PO SCH ×2 (08:15→12:28)
[2017-10-09] MEDS: CARVEDILOL 12.5 MG TAB PO SCH (08:15)
[2017-10-09] MEDS: amLODIPine BESYLATE 5 MG TAB PO SCH (08:15)
[2017-10-09] MEDS: LEVOBUNOLOL HCL 0.5% OPHT SOLN 5 ML BTL EACH EYE SCH (08:17)
[2017-10-09] MEDS: SODIUM CHLORIDE 0.9% FLUSH 10 ML FLUSH IV FLUSH SCH (08:17)
[2017-10-09 08:49] VITALS: PULSE 70
[2017-10-09 11:13] VITALS: O2SAT 93
--- NOTE | 2017-10-09 19:50 | HHI.DS ---
Discharge Summary Admission Date September 30, 2017 at 20:02 Discharge Date: October 09, 2017 Admitting Diagnosis Acute L2 fracture (1) L2 vertebral fracture ICD Code: S32.029A - Unspecified fracture of second lumbar vertebra, initial encounter for closed fracture Diagnosis: Principal Status: Acute (2) CHF (congestive heart failure) ICD Code: I50.9 - Heart failure, unspecified Diagnosis: Secondary Status: Chronic (3) Hyperlipemia ICD Code: E78.5 - Hyperlipidemia, unspecified Diagnosis: Secondary Status: Chronic (4) Parkinsons disease ICD Code: G20 - Parkinson's disease Diagnosis: Principal Status: Chronic (5) Hypertension ICD Code: I10 - Essential (primary) hypertension Diagnosis: Secondary Status: Chronic Procedures L1 through 3 laminectomy with L2 kyphoplasty Brief History - From Admission 87 y/o male with a history of Hypertension, Hyperlipidemia, CAD, CHF, Parkinson' s disease, History of prostate cancerstatus post prostatectomy presented to the ED with complaints of back pain for 2 weeks. He states 2 weeks ago he misstepped and twisted his back almost falling. He states the pain has been constant, sharp stabbing, to his lower back, 10/10, for the last 2 weeks, denies any radiation but complains of left sided weakness, worse with movement and better with rest. Denies any chest pain, sob, fever or chills. CBC/BMP: 10/08/17 1256 10/08/17 1256 Significant Findings Laboratory Tests Test 10/08/17 12:56 White Blood Count 11.7 TH/MM3 (4.0-11.0) Red Blood Count 3.56 MIL/MM3 (4.50-5.90) Hemoglobin 11.1 GM/DL (13.0-17.0) Hematocrit 33.5 % (39.0-51.0) Platelet Count 122 TH/MM3 (150-450) Monocytes (%) (Auto) 11.5 % (0.0-8.0) Neutrophils # (Auto) 8.0 TH/MM3 (1.8-7.7) Monocytes # (Auto) 1.3 TH/MM3 (0-0.9) Neutrophils # (Manual) 8.0 TH/MM3 (1.8-7.7) Promyelocytes 2 % (0-0) Nucleated Red Blood Cells 1 /100 WBC (0-0) Platelet Estimate LOW (NORMAL) Blood Urea Nitrogen 30 MG/DL (7-18) Calcium Level 8.4 MG/DL (8.5-10.1) Chloride Level 109 MEQ/L (98-107) Estimat Glomerular Filtration Rate 53 ML/MIN (>89) Imaging Last Impressions Lumbar Spine X-Ray 10/06/17 0000 Signed Impressions: Service Date/Time: Friday, October 06, 2017 11:07 - CONCLUSION: Interval kyphoplasty and fixation of the upper lumbar spine with improved anatomic alignment and improved vertebral body height at the level of L2. Yarely Lacy MD Hip and Pelvis X-Ray 10/02/17 0000 Signed Impressions: Service Date/Time: Monday, October 02, 2017 09:50 - CONCLUSION: 1. Left hip arthroplasty in place. 2. 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 3. No acute fracture. Efar Barajas MD Lumbar Spine CT 09/30/17 1552 Signed Impressions: Service Date/Time: Saturday, September 30, 2017 16:34 - CONCLUSION: 1. Acute fracture in the superior aspect of the L2 vertebral body involving the entire superior aspect of the L2 vertebral body with slight retropulsion of the posterior superior aspect of the L2 vertebral body causing minimal impress on the thecal sac. 2. Degenerative change as described above. There is severe stenosis at the L4-L5 level and moderate stenosis at the L3-L4 level. Toribio Callaway MD PE at Discharge GENERAL: Alert, NAD. SKIN: Warm and dry. HEAD: Normocephalic. EYES: No scleral icterus. No injection or drainage. NECK: Supple, trachea midline. No JVD or lymphadenopathy. CARDIOVASCULAR: Regular rate and rhythm without murmurs, gallops, or rubs. RESPIRATORY: Breath sounds equal bilaterally. No accessory muscle use. GASTROINTESTINAL: Abdomen soft, non-tender, nondistended. MUSCULOSKELETAL: No cyanosis, or edema. BACK: Nontender without obvious deformity. No CVA tenderness. Neuro: No focal neurological deficits post fall. Pt update on day of discharge Patient is doing much better today. In good spirit. No acute concerns. Hospital Course Mr. Diego is a pleasant 87-year-old male with a history of Hypertension, Hyperlipidemia, CAD, CHF, Parkinson's disease, History of prostate cancerstatus post prostatectomy presented to the ED with complaints of back pain for 2 weeks prior to this admission on 09/30/2017. CT show an unstable L2 fracture. Patient underwent surgical intervention on 10/01/2017. Patient was briefly admitted to critical care. He had some confusion and hallucination post surgery which resolved gradually. Patient was transferred to the floor 1 day after ICU admission on 10/01/2017. Neurology was consulted for Parkinson's disease. Neurology recommended to continue Sinemet 25/100 one and half tablet 3 times daily. Neurology also recommended Requip 0.25 mg 3 times daily with an intention to titrate it up over the next several weeks. Patient continued to receive physical therapy in the hospital. Physical therapy recommended rehab placement. Neurosurgery cleared for discharge to rehab. Unstable L2 fracture -Status post ORIF L2 fracture, L1-L3 posterolateral fixation with transpedicular screws and rods, L2 kyphoplasty on 10/01/2017. -Postop confusion and hallucination resolved. -After fall, Neurosurgery obtained Lumbar x-rays on 10/06/2017 which shows surgical changes and anatomic alignment and improved vertebral body height at the level of L2. -Patient remains in hemodynamically stable condition. No acute concerns No focal neurological deficits. Parkinson's disease Anxiety, agitation Insomnia -continue carbidopa levodopa 25/100 mg 1.5 tablets every 8 hours. -Continue ropinirole 0.25 mg every 8 hours. -Continue Seroquel 12.5 mg p.o. twice daily. Patient has been pleasant and cooperative. No sign of agitation. -Continue alprazolam 0.25 mg p.o. twice daily as needed -Continue temazepam 50 mg p.o. nightly as needed -Confusion noted today 10/08/2017 resolved after family arrived. 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 Will advise patient's family to discuss with the site controller regarding the need for amiodarone. -Continue atorvastatin 40 mg, carvedilol 25 mg, amlodipine 2.5 mg twice daily Full code. SCDs. Pt Condition on Discharge: Stable Discharge Disposition: Discharge to SNF Discharge Time: <= 30 minutes Discharge Instructions DIET: Follow Instructions for: Heart Healthy Diet Activities you can perform: Regular-No Restrictions Activities to Avoid: Driving Follow up Referrals: Neurosurgery - 1 Week PCP Follow-up - 2-3 Days New Medications: Potassium Chloride ER (K-Tab) 10 Meq Tab 10 MEQ PO DAILY for Electrolyte Replacement, #30 TAB 0 Refills Hydrocodone/Acetaminophen (Hydrocodone-Acetamin 5-325 mg) 5 Mg-325 Mg Tablet 1 TAB PO Q6H PRN for pain, #12 TAB Quetiapine (Seroquel) 25 Mg Tab 12.5 MG PO BID@09,12 for delirium, #60 TAB Ropinirole (Requip) 0.25 Mg Tab 0.25 MG PO Q8HR for PD, #30 TAB Continued Medications: Alprazolam (Alprazolam) 0.25 Mg Tab 0.25 MG PO BID PRN for ANXIETY, #6 TAB 0 Refills (This prescription has been renewed) Amiodarone (Amiodarone) 200 Mg Tab 200 MG PO DAILY for Regulate Heart Beat, #30 TAB 0 Refills Amlodipine (Amlodipine) 2.5 Mg Tab 2.5 MG PO BID for Blood Pressure Management, #30 TAB 0 Refills Aspirin (Aspirin) 81 Mg Chew 81 MG CHEW DAILY, TAB 0 Refills Atorvastatin (Lipitor) 40 Mg Tab 40 MG PO HS for Cholesterol Management, #30 TAB 0 Refills Carbidopa/Levodopa (Carbidopa-Levo 25-100 mg Odt) 25 Mg-100 Mg Tab.rapdis 1.5 TAB PO TID Carvedilol (Coreg) 25 Mg Tab 25 MG PO DAILY, #60 TAB 0 Refills Cobalamine Combinations (Vitamin P36-Ngjnd Acid) 500-400 Mcg Tab 1 TAB PO DAILY for Nutritional Supplement, TAB 0 Refills Fish Oil-Cholecalciferol ([place]-3 Fish Oil/Vitamin) 1,000-1,000 Mg Cap 1 CAP PO DAILY for Nutritional Supplement, CAP 0 Refills Furosemide (Furosemide) 40 Mg Tab 40 MG PO DAILY, #30 TAB 0 Refills Levobunolol Opth Drops (Levobunolol Opth Drops) 0.5% Drops 1-2 DROP EACH EYE DAILY for Glaucoma, #1 BOTTLE 0 Refills Multiple Vitamins W/ Minerals (Preservision Areds) 1 Tab 1 TAB PO DAILY for Nutritional Supplement, TAB 0 Refills Polyethylene Glycol 3350 Powder (Polyethylene Glycol 3350 Powder) 17 Gram Pow 17 GM PO DAILY for Constipation, #1 BOTTLE 0 Refills Discontinued Medications: Atorvastatin (Atorvastatin) 40 Mg Tab 40 MG PO HS for Cholesterol Management, #30 TAB 0 Refills Potassium Chloride ER (Potassium Chloride ER) 10 Meq Tab 40 MEQ PO HS for Electrolyte Replacement, #30 TAB 0 Refills Potassium Chloride ER (Potassium Chloride ER) 10 Meq Tab 30 MEQ PO DAILY for Electrolyte Replacement, #30 TAB 0 Refills Temazepam (Temazepam) 15 Mg Cap 15 MG PO HS PRN for INSOMNIA, #30 CAP 0 Refills Bg Colin DO October 09, 2017 19:50
[2017-10-10] MEDS ORDERED: REMOVE OLD PATCH T-DERMAL SCH (12:00)
== END 2017-10-09 13:34 | DRG 459 ==
LOC: NEPD 13:57 → NEDA 20:02 → N06B 21:02 → N03B 10-01 20:19 → HPAC 10-02 02:41 → N05B 10-02 17:53 → N05A 10-03 18:27
PROVIDERS: ADMIT Hospitalist; ATTEND Hospitalist
PROC: 0SG1071 Fusion of 2 or more Lumbar Vertebral Joints with Autologous Tissue Substitute, Posterior Approach, Posterior Column, Open Approach (ICD-10-PCS; principal; 2017-10-02)
PROC: 0QB20ZZ Excision of Right Pelvic Bone, Open Approach (ICD-10-PCS; 2017-10-02)
PROC: 0QS03ZZ Reposition Lumbar Vertebra, Percutaneous Approach (ICD-10-PCS; 2017-10-02)
PROC: 0QU03JZ Supplement Lumbar Vertebra with Synthetic Substitute, Percutaneous Approach (ICD-10-PCS; 2017-10-02)
PROC: 0QS004Z Reposition Lumbar Vertebra with Internal Fixation Device, Open Approach (ICD-10-PCS; 2017-10-02)
PROC: 4A11X4G Monitoring of Peripheral Nervous Electrical Activity, Intraoperative, External Approach (ICD-10-PCS; 2017-10-02)
DX: S32.029A Unspecified fracture of second lumbar vertebra, initial encounter for closed fracture (principal); G92 Toxic encephalopathy; E87.0 Hyperosmolality and hypernatremia; I95.9 Hypotension, unspecified; I11.0 Hypertensive heart disease with heart failure; E87.8 Other disorders of electrolyte and fluid balance, not elsewhere classified; I50.32 Chronic diastolic (congestive) heart failure; F05 Delirium due to known physiological condition; S22.32XA Fracture of one rib, left side, initial encounter for closed fracture; E88.09 Other disorders of plasma-protein metabolism, not elsewhere classified; E87.5 Hyperkalemia; G20 Parkinson's disease; F02.80 Dementia in other diseases classified elsewhere, unspecified severity, without behavioral disturbance, psychotic disturbance, mood disturbance, and anxiety; Z95.1 Presence of aortocoronary bypass graft; W22.09XA Striking against other stationary object, initial encounter; I25.10 Atherosclerotic heart disease of native coronary artery without angina pectoris; E78.5 Hyperlipidemia, unspecified; Z96.653 Presence of artificial knee joint, bilateral; Z96.642 Presence of left artificial hip joint; M48.061 Spinal stenosis, lumbar region without neurogenic claudication; K59.00 Constipation, unspecified; G47.00 Insomnia, unspecified; H40.9 Unspecified glaucoma; F41.9 Anxiety disorder, unspecified; E87.6 Hypokalemia; R44.1 Visual hallucinations; W06.XXXA Fall from bed, initial encounter; X50.1XXA Overexertion from prolonged static or awkward postures, initial encounter; Z95.0 Presence of cardiac pacemaker; Z95.5 Presence of coronary angioplasty implant and graft; Z95.2 Presence of prosthetic heart valve; Z85.46 Personal history of malignant neoplasm of prostate; Y92.511 Restaurant or cafe as the place of occurrence of the external cause; Z79.82 Long term (current) use of aspirin; Z78.1 Physical restraint status
CPT/HCPCS: 72020; 72100; 72131; 76000; 80048; 80053; 80076; 81001; 82948; 83735; 84100; 85007; 85025; 85027; 85610; 85730; 86850; 86900; 86901; 93005; 94150; 96374; C1713; C9113; J0131; J0690; J1100; J1170; J1580; J1940; J2250; J2270; J2370; J2405; J2710; J3010; J3370; J3480; J7120; L0200; L0484